=== PATIENT | male | born 1980 | race Caucasian/White ===

== ENCOUNTER 2016-05-24 00:34 | Emergency (ER) | payer BC, OTHER ==
[~2016-05-24] VITALS: Ht 177.8 cm; Wt 142.9 kg
[~2016-05-24 00:34] MED LIST: CIPROFLOXACIN PO; HCTZ PO; TYLENOL # 3 PO
[2016-05-24] MEDS ORDERED: LOSA25TA8 PO (00:43)
[2016-05-24] MEDS ORDERED: ALEV220C2 PO (00:43)
[2016-05-24] MEDS ORDERED: AMLO10TA2 PO (00:43)
--- NOTE | 2016-05-24 04:10 | REPUSA ---
CLINICAL HISTORY: TECHNIQUE: Multiple axial and coronal CT images were obtained through the abdomen and pelvis without administration of oral or IV contrast material. COMMENTS: The liver is of uniform attenuation without mass or defect. There is no intra or extrahepatic biliary ductal dilatation. The spleen is normal. The gallbladder is within normal limits. The pancreas is of normal contour and attenuation characteristics. There is no evidence of adrenal mass. 4.2 mm obstructing stone of the left ureter at L4 level. Mild left hydroureteronephrosis. No renal or right ureteral calculi are identified. There is no right hydroureter or hydronephrosis. There is no evidence for appendicitis. There is no bowel wall thickening. No evidence for small or la rge bowel obstruction. There is no evidence of abdominal ascites or lymphadenopathy. Uncomplicated clonic diverticulosis. Mild large bowel fecal stasis. There is no evidence of intrinsic or extrinsic bladder mass. There is no pelvic ascites or lymphadeno fela. Mildly thickened bladder. Images of the lung bases show no evidence of pleural or parenchymal mass. There are no pleural effusi ons. The bony structures are free of lytic or blastic lesions. IMPRESSION: Obstructing calculus of the left ureter. Thank you for your kind referral of this patient.
[2016-05-24] MEDS ORDERED: PERC5TAB6 PO (04:25)
[2016-05-24] MEDS ORDERED: ZOFR4TAB3 PO (04:25)
[2016-05-24 04:32] VITALS: BP 136/83
== END 2016-05-24 04:48 | disposition home or self-care (01) ==
LOC: M ED 02:16
DX: N20.1 Calculus of ureter (principal)

== ENCOUNTER → 2016-05-29 | Outpatient (REF) | payer OTHER ==
[~2016-05-29] MED LIST changes: +ALEV220C2 PO; +AMLO10TA2 PO; +LOSA25TA8 PO; +PERC5TAB6 PO; +ZOFR4TAB3 PO
== END ==
LOC: M SMT 12:52
PROVIDERS: ATTEND Nurse Practitioner Women's Health
DX: N13.2 Hydronephrosis with renal and ureteral calculous obstruction (principal)

== ENCOUNTER → 2016-06-12 | Outpatient (CLI) | payer BC, OTHER ==
--- NOTE | 2016-06-12 10:01 | REP ---
Supine abdomen two views: Comparison is the CT abdomen pelvis of 05/24. Seen. On the comparison CT there was a calcification in the proximal left ureter. This calcification is not seen in the proximal left ureter on the plain film study today. However, there is a faintly visible density the pelvis on the left which could be the calculus now in the distal left ureter. There are no other calcifications. Bowel gas pattern is normal. Skeletal structures and soft tissues are otherwise are. Signed by Zachary Gilliam MD 06/12/2016 09:52 A
[2016-06-12 14:14] LABS: CALCIUM OXALATE CRYSTALS SMALL
== END ==
LOC: M SMT 09:20
PROVIDERS: ATTEND Nurse Practitioner Women's Health
DX: N13.2 Hydronephrosis with renal and ureteral calculous obstruction (principal)

== ENCOUNTER 2016-09-02 13:54 | Emergency (ER) | payer BC, OTHER ==
[~2016-09-02] VITALS: Ht 177.8 cm; Wt 146.0 kg
[~2016-09-02 13:54] MED LIST changes: +PERC5TAB12 PO; -PERC5TAB6 PO
[2016-09-02] MEDS ORDERED: KETOROLAC 30 MG/ML VIAL (J1885) IV ONE (14:30)
[2016-09-02] MEDS ORDERED: NS 500 ML IV ONE (14:45)
[2016-09-02 15:07] LABS: BASO % 0.3 % (0.0-1.0); EOS # 0.1 K/mm3 (0.0-0.50); EOS % 0.8 % (0.0-3.0); LARGE UNSTAINED CELL # 0.1 K/mm3 (0.0-0.4); LARGE UNSTAINED CELL % 0.7 % (0.0-4.0); LYMPH # 1.3 K/mm3 (1.5-4.5); LYMPH % 10.7 % (24.0-44.0); MEAN CORPUSCULAR HEMOGLOBIN 29.3 pg (27.0-33.0); MEAN CORPUSCULAR HGB CONC 33.7 g/dl (32.0-36.5); MEAN CORPUSCULAR VOLUME 87.1 fl (80.0-96.0); MONO # 0.6 K/mm3 (0.0-0.8); NEUTROPHILS # 9.2 K/mm3 (1.8-7.7); NEUTROPHILS % 82.4 % (36.0-66.0); PLATELET COUNT, AUTOMATED 240 k/mm3 (150-450); RED CELL DISTRIBUTION WIDTH 12.7 % (11.5-14.5); WHITE BLOOD COUNT 11.2 K/mm3 (4.0-10.0)
[2016-09-02 15:13] LABS: CALCIUM OXALATE CRYSTALS LARGE
--- NOTE | 2016-09-02 15:16 | REP ---
Clinical: Left back and flank pain. Comparison: 05/24/2016. Findings: Acute left-sided obstructive uropathy with perinephric and periureteral stranding, hydroureteronephrosis and edematous enlargement to the left kidney secondary to a 5 mm calculus at the left ureterovesicle junction (images 137 - 139). Right kidney/ureter are normal and without nephroureterolithiasis or hydroureteronephrosis. Bladder is collapsed. Liver, spleen, pancreas, gallbladder, and bilateral adrenal glands are normal. The enteric system is without obstruction or acute inflammatory process. Normal terminal ileum and appendix identified in the right lower quadrant. Pelvis demonstrates few scattered sigmoid diverticula without acute diverticulitis. Bladder is unremarkable. Prostate/seminal vesicles are normal. No ascites. No free air. No adenopathy. Abdominal aorta without aneurysm. Musculoskeletal structures are intact. Impression: Acute left-sided obstructive uropathy with a 5 mm calculus at the ureterovesicle junction. Signed by Ken Andrade MD 09/02/2016 03:07 P
[2016-09-02 15:28] LABS: ANION GAP 6 MEQ/L (8-16); BLOOD UREA NITROGEN 22 MG/DL (7-18); CALCIUM LEVEL 8.6 MG/DL (8.5-10.1); CARBON DIOXIDE LEVEL 26 MEQ/L (21-32); CHLORIDE LEVEL 106 MEQ/L (98-107); CREATININE FOR GFR 1.09 MG/DL (0.70-1.30); GLOMERULAR FILTRATION RATE > 60.0 (>60); GLUCOSE, FASTING 98 MG/DL (70-105); SODIUM LEVEL 138 MEQ/L (136-145)
[2016-09-02] MEDS ORDERED: MORPHINE 4 MG/ML 1ML SYRINGE IV ONE (15:45)
[2016-09-02] MEDS ORDERED: FLOM5CAP PO (15:53)
[2016-09-02] MEDS ORDERED: NORCOTAB PO (15:53)
[2016-09-02] MEDS ORDERED: NAPR500T PO (15:53)
[2016-09-02 16:31] VITALS: BP 157/89
== END 2016-09-02 16:37 | disposition home or self-care (01) ==
LOC: M ED 13:54
DX: N20.1 Calculus of ureter (principal); N13.30 Unspecified hydronephrosis; I10 Essential (primary) hypertension; Z87.442 Personal history of urinary calculi; Z88.0 Allergy status to penicillin; Z79.899 Other long term (current) drug therapy
CPT/HCPCS: 74176; 80048; 81001; 85025; 86140; 87086; 96374; 96375; 99283; J1885

== ENCOUNTER → 2016-09-04 | Outpatient (REF) | payer OTHER ==
[~2016-09-04] MED LIST changes: +FLOM5CAP PO; +NAPR500T PO; +NORCOTAB PO
== END ==
LOC: M LAB REF 10:56
PROVIDERS: ATTEND Physician Assistant
DX: N20.0 Calculus of kidney (principal)

== ENCOUNTER → 2016-09-10 | Outpatient (REF) | payer OTHER | LOC: M SMT 12:46 | PROVIDERS: ATTEND Nurse Practitioner Women's Health | DX: N13.2 Hydronephrosis with renal and ureteral calculous obstruction (principal) ==

== ENCOUNTER 2017-12-17 03:25 | Emergency (ER) | payer BC, OTHER | END 2017-12-17 04:33 | disposition home or self-care (01) | LOC: M ED 03:25 | DX: L70.0 Acne vulgaris (principal); Z88.0 Allergy status to penicillin; Z79.899 Other long term (current) drug therapy | CPT/HCPCS: 99282 ==

== ENCOUNTER → 2018-08-03 | Outpatient (REF) | payer OTHER ==
[~2018-08-03] MED LIST changes: -AMLO10TA2 PO; +AMLO10TA5 PO; +FLOM0.4C39 PO; -FLOM5CAP PO; +HYDR-3715 PO; +LOSA25TA14 PO; -LOSA25TA8 PO; +LOSARTAN/HCT; +NAPR-837 PO; -NAPR500T PO; -NORCOTAB PO; +ZOFR4TAB14 PO; -ZOFR4TAB3 PO
== END ==
LOC: M WUC 12:18
PROVIDERS: ATTEND Physician Assistant
DX: J02.9 Acute pharyngitis, unspecified (principal)

== ENCOUNTER 2020-09-08 19:55 | Emergency (ER) | payer BC, OTHER ==
[~2020-09-08] VITALS: Ht 177.8 cm; Wt 157.8 kg
[~2020-09-08 19:55] MED LIST changes: -AMLO10TA5 PO; +AMLO1TAB25 PO
[2020-09-08] MEDS ORDERED: LOSA100T50 PO (20:02)
[2020-09-08] MEDS ORDERED: EXCETAB33 PO (20:02)
[2020-09-09 01:25] LABS: BASO # 0.1 10^3/uL (0.0-0.2); BASO % 0.8 % (0.0-1.0); EOS # 0.2 10^3/uL (0.0-0.5); EOS % 2.4 % (0.0-3.0); HEMATOCRIT 42.5 % (42.0-52.0); LYMPH # 3.1 10^3/uL (1.5-5.0); LYMPH % 33.2 % (24.0-44.0); MEAN CORPUSCULAR HEMOGLOBIN 28.7 pg (27.0-33.0); MEAN CORPUSCULAR HGB CONC 32.9 g/dl (32.0-36.5); MEAN CORPUSCULAR VOLUME 87.3 fl (80.0-96.0); MONO # 0.6 10^3/uL (0.0-0.8); MONO % 6.5 % (2.0-8.0); NEUTROPHILS # 5.2 10^3/uL (1.5-8.5); NEUTROPHILS % 56.6 % (36.0-66.0); PLATELET COUNT, AUTOMATED 300 10^3/uL (150-450); RED BLOOD COUNT 4.87 10^6/uL (4.30-6.10); WHITE BLOOD COUNT 9.2 10^3/uL (4.0-10.0)
--- NOTE | 2020-09-09 01:25 | REPVR ---
PROCEDURE INFORMATION: Exam: US Abdomen, Limited; Right Upper Quadrant Exam date and time: 09/09/2020 1:02 AM Age: 40 years old Clinical indication: Abdominal pain; Acute; Additional info: Ruq pain TECHNIQUE: Imaging protocol: US abdomen. Real time ultrasound with image documentation. Limited exam focused on the right upper quadrant. COMPARISON: CT ABD PELVIS W/O CONTRAST 09/02/2016 2:51 PM FINDINGS: Liver: Unremarkable. No masses. Gallbladder: Normal. No gallstones. There is no gallbladder wall thickening. Common bile duct: Normal. No stones. No dilation. Pancreas: Visualized pancreas is unremarkable. Right kidney: Normal. No mass. No hydronephrosis. IMPRESSION: No acute findings. Electronically signed by: Rahat Malik On 09/09/2020 01:24:32 AM
[2020-09-09 01:54] LABS: ALBUMIN 3.9 GM/DL (3.2-5.2); ALT/SGPT 41 U/L (12-78); BILIRUBIN,DIRECT 0.1 MG/DL (0.0-0.2); BILIRUBIN,TOTAL 0.4 MG/DL (0.2-1.0); BLOOD UREA NITROGEN 14 MG/DL (7-18); CALCIUM LEVEL 8.7 MG/DL (8.5-10.1); CARBON DIOXIDE LEVEL 30 MEQ/L (21-32); CHLORIDE LEVEL 107 MEQ/L (98-107); GLOMERULAR FILTRATION RATE > 60.0 (>60); GLUCOSE, FASTING 103 MG/DL (70-100); LIPASE 119 U/L (73-393); POTASSIUM SERUM 4.1 MEQ/L (3.5-5.1); SODIUM LEVEL 140 MEQ/L (136-145); TOTAL PROTEIN 6.9 GM/DL (6.4-8.2)
[2020-09-09 02:41] VITALS: BP 154/87
== END 2020-09-09 02:43 | disposition home or self-care (01) ==
LOC: M ED 19:55
DX: R10.11 Right upper quadrant pain (principal); E66.9 Obesity, unspecified; R06.02 Shortness of breath; I10 Essential (primary) hypertension; M54.9 Dorsalgia, unspecified; Z87.442 Personal history of urinary calculi; Z79.899 Other long term (current) drug therapy; Z88.0 Allergy status to penicillin

== ENCOUNTER 2020-11-15 14:05 | Emergency (ER) | payer BC, OTHER ==
[~2020-11-15] VITALS: Ht 177.8 cm; Wt 156.0 kg
[~2020-11-15 14:05] MED LIST changes: +EXCETAB33 PO; +LOSA100T50 PO
[2020-11-15] MEDS ORDERED: NAPR220C14 PO (14:16)
[2020-11-15] MEDS ORDERED: LOSA100T8 (14:16)
[2020-11-15 14:56] LABS: BASO # 0.1 10^3/uL (0.0-0.2); BASO % 0.8 % (0.0-1.0); EOS # 0.2 10^3/uL (0.0-0.5); EOS % 2.3 % (0.0-3.0); HEMATOCRIT 40.7 % (42.0-52.0); HEMOGLOBIN 13.8 g/dl (13.5-17.5); LYMPH # 1.8 10^3/uL (1.5-5.0); LYMPH % 23.9 % (24.0-44.0); MEAN CORPUSCULAR HEMOGLOBIN 29.1 pg (27.0-33.0); MEAN CORPUSCULAR HGB CONC 33.9 g/dl (32.0-36.5); MEAN CORPUSCULAR VOLUME 85.9 fl (80.0-96.0); MONO # 0.4 10^3/uL (0.0-0.8); MONO % 5.2 % (2.0-8.0); NEUTROPHILS # 5.1 10^3/uL (1.5-8.5); NEUTROPHILS % 67.3 % (36.0-66.0); PLATELET COUNT, AUTOMATED 289 10^3/uL (150-450); RED BLOOD COUNT 4.74 10^6/uL (4.30-6.10); WHITE BLOOD COUNT 7.5 10^3/uL (4.0-10.0)
--- NOTE | 2020-11-15 15:12 | REP ---
INDICATION: CHEST PAIN. COMPARISON: July 03, 2013. TECHNIQUE: Portable upright AP chest radiograph. FINDINGS: The lungs are well inflated and free of infiltrate. Pleural angles are sharp. Heart size is normal. Pulmonary vasculature is not increased. EKG monitoring electrodes are present. IMPRESSION: No active disease. <Electronically signed by Dmitri Malave > 11/15/20 [id number]
[2020-11-15 15:29] LABS: ALBUMIN 3.5 GM/DL (3.2-5.2); ALT/SGPT 41 U/L (12-78); BILIRUBIN,DIRECT 0.1 MG/DL (0.0-0.2); BILIRUBIN,TOTAL 0.3 MG/DL (0.2-1.0); BLOOD UREA NITROGEN 16 MG/DL (7-18); CARBON DIOXIDE LEVEL 27 MEQ/L (21-32); CHLORIDE LEVEL 107 MEQ/L (98-107); CK-MB VALUE MASS < 1.0 NG/ML (<3.6); CPK CREATINE PHOSPHOKINASE 117 U/L (39-308); CREATININE FOR GFR 0.69 MG/DL (0.70-1.30); FREE T4 0.91 NG/DL (0.76-1.46); GLOMERULAR FILTRATION RATE > 60.0 (>60); GLUCOSE, FASTING 91 MG/DL (70-100); LIPASE 108 U/L (73-393); MB/CK RELATIVE INDEX 0.85 (< OR =4); NT-PRO BNP 20 PG/ML (<125); POTASSIUM SERUM 4.4 MEQ/L (3.5-5.1); SODIUM LEVEL 138 MEQ/L (136-145); TOTAL PROTEIN 6.5 GM/DL (6.4-8.2); TROPONIN I < 0.02 NG/ML (< 0.10)
[2020-11-15 17:30] VITALS: BP 158/88
--- NOTE | 2020-11-17 19:47 | ECGEPIP ---
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
== END 2020-11-15 17:36 | disposition home or self-care (01) ==
LOC: M ED 14:05
DX: R07.89 Other chest pain (principal); I10 Essential (primary) hypertension; Z87.442 Personal history of urinary calculi; Z88.0 Allergy status to penicillin; Z79.82 Long term (current) use of aspirin; Z79.899 Other long term (current) drug therapy

== ENCOUNTER → 2020-11-28 | Outpatient (CLI) | payer BC, OTHER ==
[~2020-11-28] MED LIST changes: +LOSA100T8; +NAPR220C14 PO
--- NOTE | 2020-12-02 16:31 | SLEEPCENT ---
DATE: 11/28/2020 PROCEDURE: Nocturnal polysomnography. ORDERED BY: Tiffanie Addison. Nocturnal polysomnography was performed for evaluation of sleep physiology in this patient with a history of snoring and excessive somnolence. 6 hours and 32 minutes of data were reviewed. There were 257 minutes of sleep identified. Sleep latency was prolonged at 74 minutes. REM latency was normal at 80 minutes. Sleep architecture was fairly well preserved. There was some fragmentation, but 3 REM cycles were noted. Overall sleep efficiency was 67.1%. The electrocardiogram showed a sinus rhythm with an average heart rate of 65 beats per minute. Rate varied between 55 and 85. EEG showed normal waveforms for wake and sleep. There were 237 respiratory events identified of 10 seconds in duration or greater for an apnea-hypopnea index of 55.3. The events were obstructive, not exclusive to sleep stage nor body position. Arousals from respiratory events occurred 16.3 times per hour, and oxygen desaturations were seen into the 70s. There was some limb activity, but arousal index was only 2.3. IMPRESSION: Obstructive sleep apnea syndrome (G47.33). Apnea-hypopnea index 55.3. RECOMMENDATION: The patient should be encouraged to return to [facility]. In the interim, alcohol and sedative avoidance should be practiced, and caution exercised during the operation of motor vehicles. cc: Dr. Patino
== END ==
LOC: M SLEEP 20:00
PROVIDERS: ATTEND Nurse Practitioner Family
DX: G47.33 Obstructive sleep apnea (adult) (pediatric) (principal)

== ENCOUNTER → 2020-12-26 | Outpatient (CLI) | payer BC, OTHER ==
--- NOTE | 2020-12-30 20:10 | SLEEPCENT ---
DATE: 12/26/2020 CPAP TITRATION ORDERED BY: CHANTELL Betancur Nocturnal polysomnography was performed for the titration of pressure therapy in this patient with severe obstructive sleep apnea syndrome, apnea-hypopnea index of 8. For testing a ResMed F20 full face mask of medium size was used, 4 cm of water pressure were applied to the circuit, and the lights were extinguished. Seven hours and 18 minutes of data were reviewed. There were 266.5 minutes of sleep identified. Sleep latency was normal at 7.5 minutes. REM latency was normal at 79 minutes. Sleep architecture was good with three REM cycles. Overall sleep efficiency was 62.0%. The patient's electrocardiogram showed a sinus rhythm with an average heart rate of 65 beats per minute. EEG showed normal waveforms for wake and sleep. Respiratory events were palliated with CPAP at a pressure of 9. There was some minor limb activity. Limb movement arousal index on this occasion was 9. IMPRESSIONS: Obstructive sleep apnea syndrome (G47.33). RECOMMENDATION: Nightly use of pressure therapy 9 cm of water. cc: Dr. Patino
== END ==
LOC: M SLEEP 20:02
PROVIDERS: ATTEND Nurse Practitioner Family
DX: G47.33 Obstructive sleep apnea (adult) (pediatric) (principal)

== ENCOUNTER 2021-02-07 01:36 | Emergency (ER) | payer BC, OTHER ==
[~2021-02-07] VITALS: Ht 177.8 cm; Wt 160.3 kg
[2021-02-07 01:38] VITALS: BP 141/77
--- OUTSIDE RECORDS SUMMARY | 2021-02-07 01:45 | CCD | Continuity of Care Document ---
Author Author Jake COLLIER MD Organization Unknown Address [address] [place] [address] [place] [address] Phone [phone] Care Team Providers Care Polygraph Examiner Name Role Phone French Patino MD AUT [phone] Problems Active Problems Provider Date Dietary management surveillance Miky Collier MD Onset: 01/08/2021 Morbid obesity Miky Collier MD Onset: 01/08/2021 Essential hypertension Miky Collier MD Onset: Chest pain Miky Collier MD Onset: 01/08/2021 Social History Type Date Description Comments Sex Unknown ETOH Use Consumes Beer 6-7 monthly ETOH Use Consumes Liquor 1-2 shots monthl y Tobacco Use Start: Unknown Patient has never smoked Smoking Status Reviewed: 01/08/21 Patient has never smoked Exercise Type/Frequency Does aerobics 4 times a week Exercise Type/Frequency Lifts weights 4 times a week Exercise Type/Frequency Does housework sporadica lly Exercise Limitations None Allergies and adverse reactions Active Allergies Criticality Reaction | Severity Comments Date Penicillin V Unable to assess criticality 11/27/2020 Medications Active Medications SIG Qnty Indications Ordering Provide r Date Amlodipine Besylate 10mg Tablets 1 by mouth once daily French Patino MD [id number]-[id number]-Dzbhyntr [id number] Tablets 1-2 by mouth as needed 10tabs Unknown 01/07 Losartan Potassium/Hydrochlorothiazide 100-12.5mg Tablets 1 by mouth once daily French Patino MD 01/07/2021 Vitamin C 500mg Tablets 1 by mouth occasionally Unknown 01/07/2021 Immunizations Description No Information Available Vital Signs Date Vital Result Comment 01/08/2021 8:25am Weight 348.00 lb Home Weight 344lb Height 70 inches 5'10" BMI (Body Mass Index) 49.9 kg/m2 Heart Rate 77 /min BP Systolic Sitting 113 mmHg Omron XL cuff, Ra BP Diastolic Sitting 83 mmHg Omron XL cuff, Ra Results Test Acquired Date Facility Test Result H/L Range Note CMP 11/15/2020 [facility] - not interfaced (315)- - Albumin Serum/Plasma 3.5 Alt - SGPT 41 Calcium Ser/Plasma Mass/Vol 9.0 Carbon Dioxide Ser/Plasm 27 Chloride Serum/Plasma 107 Alkaline Phosphatase 102 Potassium 4.4 Protein Total 6.5 Sodium 138 Ast - Sgot 20 BUN - Urea Nitrogen 16 Glucose 91 70-100 Creatinine For GFR 0.69 CPK & CPK MB 11/15/2020 [facility] - not interfaced (315)- - CPK 117 CPK-MB <1.0 Laboratory test finding 11/15/2020 [facility] - not interf aced (315)- - Troponin <0.02 NT Probnp QN Ser/Plas 20 Thyroid Stimulating Hormone 1.360 Free T4 0.91 Lipase 108 CBC without Differential 11/15/2020 [facility] - not inter faced (315)- - White Blood Count 7.5 4.0-10.0 Red Blood Count 4.74 4.30-6.10 Platelets 289 150-450 Hemoglobin 13.8 Hematocrit 40.7 Procedures Date Code Description Status 01/08/2021 58266 Office/Outpatient New Moderate M DM 45-59 Minutes Completed 01/08/2021 63514 ECG 12-Lead Completed Medical Devices Description No Information Available Encounters Type Date Location Provider Dx Diagnosis Office Visit 01/08/2021 8:00a Main Office Miky Collier MD R07.8 9 Other chest pain I10 Essential (primary) hyperten yuly E66.01 Morbid (severe) obesity due to excess calories Z71.3 Dietary counseling and surve illance Assessments Date Code Description Provider 01/08/2021 R07.89 Anterior chest-wall pain NOS Ant hannah Collier MD 01/08/2021 I10 Essential (primary) hypertension Miky Collier MD 01/08/2021 E66.01 Morbid (severe) obesity due to e xcess calories Miky Collier MD 01/08/2021 Z71.3 Dietary counseling and surveilla nce Miky Collier MD Plan of Treatment 01/08/2021 - Miky Collier MD* R07.89 Anterior chest-wall pain NOS* Recommendations:* Cardiac stress testing was not pursued because the patient's pretest likelihood for CAD based on symptom description, age, gender is low. Patient was reassured that the sharp chest pains he had were not cardiac. * I10 Essential (primary) hypertension* Recommendations:* Continue losartan/hydrochlorothiazide and amlodipine at the current dosages. Low-fat, whole-food, plant-based, low sodium nutrition with avoidance of added oils and fats and avoidance of refined carbohydrates was encouraged. No alcohol. [place] or equivalent aerobic activity for 40-60 minutes every day. * E66.01 Morbid (severe) obesity due to excess calories* Recommendations:* Nutrition and exercise advice as above. * Z71.3 Dietary counseling and surveillance * All * Follow up:* No specific arrangements were made for further cardiology follow-up. Functional Status Functional Condition Comment Date Status Independent with all ADL's Activ e Mental Status Description No Information Available Referrals Description No Information Available
--- OUTSIDE RECORDS SUMMARY | 2021-02-07 01:45 | CCD | Continuity of Care Document ---
Author Author Jake MCGREGOR [place] Organization Unknown Address [address] [place] [address] [place] [address] Phone [phone] Care Team Providers Care Maintenance Dispatcher Name Role Phone French Patino MD AUTM [phone] Problems Description No Information Available Social History Type Date Description Comments Sex Unknown ETOH Use Rarely consumes alcohol Tobacco Use Start: Unknown Patient has never smoked Tobacco Use Start: Unknown The Patient Has Never Vaped Smoking Status Reviewed: 12/26/19 The Patient Has Never Vaped Allergies and adverse reactions Active Allergies Criticality Reaction | Severity Comments Date Penicillins Unable to assess criticality 07/03/2013 Medications Active Medications SIG Qnty Indications Ordering Provide r Date Losartan Potassium Unknown Amlodipine Besylate Unknown Nyquil last dose last night around midnight Unknown Aleve 220mg Capsules yesterda y Unknown Immunizations CPT Code Status Date Vaccine Reaction Lot # [id number] Given 10/06/2019 Tdap/Tetanus, Di phth Toxoids/Acellular Pertussis Vac 7Yr Or > No reaction [id number] Vital Signs Date Vital Result Comment 12/26/2019 6:41pm BP Systolic 146 mmHg BP Diastolic 89 mmHg Heart Rate 89 /min Respiratory Rate 18 /min O2 % BldC Oximetry 97 % Body Temperature 100.3 F Weight 340.00 lb Height 70 inches 5'10" BMI (Body Mass Index) 48.8 kg/m2 Pain Level 1 10/06/2019 8:21am BP Systolic 147 mmHg BP Diastolic 89 mmHg Heart Rate 68 /min Respiratory Rate 16 /min O2 % BldC Oximetry 98 % Body Temperature 97.7 F Weight 330.00 lb Height 70 inches 5'10" BMI (Body Mass Index) 47.3 kg/m2 Pain Level 1 Results Description No Information Available Procedures Description No Information Available Medical Devices Description No Information Available Encounters Description No Information Available Assessments Date Code Description Provider 01/13/2021 Z20.828 Contact with and (zheng spected) exposure to other viral communicable diseases YANG Pastrana 12/09/2020 Z20.828 Contact with and (zheng spected) exposure to other viral communicable diseases YANG Pastrana 08/02/2020 Z20.828 Contact with and (zheng spected) exposure to other viral communicable diseases YANG Damian Plan of Treatment No Information Available Functional Status Description No Information Available Mental Status Description No Information Available Referrals Description No Information Available
--- OUTSIDE RECORDS SUMMARY | 2021-02-07 01:45 | CCD | Continuity of Care Document ---
Author Author Jake PATINO M.D. Organization Unknown Address [address] [address] Phone [phone] Problems Active Problems Provider Date Benign essential hypertension French Patino M.D. Onset: 05/03/2013 Essential hypertension French Patino M.D. Onset: 2014 Hyperglycemia French Patino M.D. Onset: 0 Social History Type Date Description Comments Sex Unknown ETOH Use Drinks Beer,Wine and Liquor-14 D rinks per week Tobacco Use Start: Unknown Patient has never smoked Allergies and adverse reactions Active Allergies Criticality Reaction | Severity Comments Date Penicillin Unable to assess criticality hives 05/03/2013 Hydrochlorothiazide Unable to assess criticality Cough 07/28/2019 Medications Active Medications SIG Qnty Indications Ordering Provide r Date Losartan Potassium/Hydrochlorothiazide 100-12.5mg Tablets 1 by mouth every day 90tabs French Patino M.D. 09/17/2020 Amlodipine Besylate 10mg Tablets take 1 tablet by mouth once daily 90tabs French Patino M. D. 06/11/2015 Immunizations CPT Code Status Date Vaccine Lot # [id number] Refused 01/25/2019 Influenza Virus Vaccine, Quadrivalent, Slit Virus, Im Use 3Y & Up Vital Signs Date Vital Result Comment 01/07/2021 1:35pm BP Systolic 134 mmHg BP Diastolic 84 mmHg Body Temperature 98.4 F Heart Rate 86 /min Respiratory Rate 14 /min Height 70 inches 5'10" Weight 348.00 lb [place] Body Weight 166 lb BMI (Body Mass Index) 49.9 kg/m2 O2 % BldC Oximetry 97 % 09/17/2020 1:20pm BP Systolic 154 mmHg BP Diastolic 94 mmHg Body Temperature 97.1 F Heart Rate 76 /min Respiratory Rate 16 /min Height 70 inches 5'10" Weight 242.00 lb [place] Body Weight 166 lb BMI (Body Mass Index) 34.7 kg/m2 O2 % BldC Oximetry 98 % Results Test Acquired Date Facility Test Result H/L Range Note Laboratory test finding 01/07/2021 [facility] [place] Amylase 50 U/L 31-110 Lipase 32 U/L 13-78 CMP 01/07/2021 [facility]Inhouse Glu 88 mg/dL 70 - 110 1 BUN 15 mg/dL 8 - 23 Creat 0.8 mg/dL 0.7 - 1.2 BUN/Creatinine Ratio 19.7 CALC Na 136 mmol/L 136 - 145 K 4.2 mmol/L 3.5 - 5.1 CL 101.7 mmol/L 98.0 - 107.0 Co2 22.2 mmol/L 22.0 - 29.0 CA 9.1 mg/dL 8.6 - 10.2 TP 6.2 g/dL Low 6.6 - 8.7 Alb 4.3 g/dL 3.5 - 5.2 A/G Ratio 2.2 CALC Globulin 2.0 CALC Alp 106.7 U/L 40 - 129 Alt (SGPT) 28 U/L 0 - 41 Ast (Sgot) 21 U/L 0 - 40 Tbili 0.30 mg/dL 0.0 - 1.2 Osmolality-Calculated 273.1 CALC Anion Gap 17 mmol/L eGFR 128 # Calc 2 eGFR Non-Afr. Australian 110 # Calc 3 CBC 01/07/2021 [facility]Inhouse WBC 6.9 10E3/uL 4.1 - 10.9 RBC 4.90 10E6/uL 4.20 - 6.30 HGB 14.2 g/dL 12.0 - 18.0 HCT 41.9 % 37.0 - 51.0 MCV 85.5 fL 80.0 - 97.0 MCH 29.0 pg 26.0 - 32.0 MCHC 33.9 g/dL 31.0 - 36.0 PLT 296 10E3/uL 140 - 440 RDW-CV 12.6 % 11.5 - 14.5 Lym% 26.2 % 10.0 - 58.5 Neut% 65.1 % 37.0 - 92.0 MXD% 8.7 % 0.1 - 24.0 Lym# 1.8 10E3/uL 0.6 - 4.1 Neut# 4.5 % 2.0 - 7.8 MXD# 0.6 10E3/uL 0.0 - 1.8 MPV 11.4 fL 9.0 - 13.0 CBC With Differential 11/15/2020 [facility]) [phone] White Blood Count 7.5 10 Normal 4.0-10.0 Red Blood Count 4.74 10 Normal 4.30-6.10 Hemoglobin 13.8 g/dL Normal 13.5-17.5 Hematocrit 40.7 % Low 42.0-52.0 Mean Corpuscular Volume 85.9 fl Normal 80.0-96.0 Mean Corpuscular Hemoglobin 29.1 pg Normal 27.0-33.0 Mean Corpuscular HGB Conc 33.9 g/dL Normal 32.0-36.5 Red Cell Distribution Width 12.1 % Normal 11.5-14.5 Platelet Count, Automated 289 10 Normal 150-450 Neutrophils % 67.3 % High 36.0-66.0 Lymph % 23.9 % Low 24.0-44.0 [place] % 5.2 % Normal 2.0-8.0 Eos % 2.3 % Normal 0.0-3.0 Baso % 0.8 % Normal 0.0-1.0 Immature Granulocyte % 0.5 % Normal 0-3.0 Nucleated Red Blood Cell % 0.0 % Normal 0-0 Neutrophils # 5.1 10 Normal 1.5-8.5 Lymph # 1.8 10 Normal 1.5-5.0 [place] # 0.4 10 Normal 0.0-0.8 Eos # 0.2 10 Normal 0.0-0.5 Baso # 0.1 10 Normal 0.0-0.2 Cardiac Marker Panel 11/15/2020 [facility]) [phone] CPK Creatine Phosphokinase 117 U/L Normal 39-30 8 CK-MB Value Mass < 1.0 NG/ML Normal <3.6 MB/CK Relative Index 0.85 Normal < Or =4 4 Troponin I < 0.02 NG/ML Normal < 0.10 5 Liver Profile 11/15/2020 [facility] [phone] Ast/Sgot 20 U/L Normal 7-37 Alt/SGPT 41 U/L Normal 12-78 Alkaline Phosphatase 102 U/L Normal 45-117 Bilirubin,Total 0.3 mg/dL Normal 0.2-1.0 Bilirubin,Direct 0.1 mg/dL Normal 0.0-0.2 Total Protein 6.5 GM/DL Normal 6.4-8.2 Albumin 3.5 GM/DL Normal 3.2-5.2 Albumin/Globulin Ratio 1.2 Normal Basic Metabolic Profile 11/15/2020 [facility] (Interface) [phone] Glucose, Fasting 91 mg/dL Normal 70-100 Blood Urea Nitrogen 16 mg/dL Normal 7-18 Creatinine For GFR 0.69 mg/dL Low 0.70-1.30 Glomerular Filtration Rate > 60.0 Normal >60 6 Sodium Level 138 mEq/L Normal 136-145 Potassium Serum 4.4 mEq/L Normal 3.5-5.1 Chloride Level 107 mEq/L Normal 98-107 Carbon Dioxide Level 27 mEq/L Normal 21-32 Anion Gap 4 mEq/L Low 8-16 Calcium Level 9.0 mg/dL Normal 8.5-10.1 Laboratory test finding 11/15/2020 [facility] (Interface) [phone] NT-Pro BNP 20 pg/mL Normal <125 Lipase 108 U/L Normal 73-393 Thyroid Stimulating Hormone 1.360 uIU/ML Normal 0.358-3.740 Free T4 0.91 ng/dL Normal 0.76-1.46 Ua W/ Reflex To Culture 09/09/2020 [facility] (Interface) [phone] Appearance, Urine RFX HAZY Normal Clear Color, Urine RFX YELLOW Normal Yellow PH,Urine RFX 5.0 units Normal 5.0-9.0 Specific [place] Ur Auto RFX 1.024 Normal 1.002-1.035 Protein, Urine Auto RFX 1+ mg/dL High Negative Glucose, Urine (Ua) Auto RFX NEGATIVE mg/dL Normal Negative Ketone, Urine Auto RFX NEGATIVE mg/dL Normal Negative Urobilinogen, Urine Auto RFX 0.2 mg/dL Normal 0.0-2.0 Bilirubin, Urine Auto RFX NEGATIVE Normal Negative Nitrite, Urine Auto RFX NEGATIVE Normal Negative Leukocyte Esterase Ur Auto RFX NEGATIVE Normal Negative Blood, Urine Blood RFX NEGATIVE Normal Negative WBC, Urine Auto RFX 2 /HPF Normal 0-3 RBC, Urine Auto RFX 2 /HPF Normal 0-3 Bacteria, Urine Auto RFX NEGATIVE Normal Negative Squam Epithelial Cell Ur Aurfx 0 /HPF Normal 0-6 Mucus, Urine RFX MODERATE Normal Negative Hyaline Cast, Urine Auto RFX 0 /LPF Normal 0-1 CBC With Differential 09/09/2020 [facility]) [phone] White Blood Count 9.2 10 Normal 4.0-10.0 Red Blood Count 4.87 10 Normal 4.30-6.10 Hemoglobin 14.0 g/dL Normal 13.5-17.5 Hematocrit 42.5 % Normal 42.0-52.0 Mean Corpuscular Volume 87.3 fl Normal 80.0-96.0 Mean Corpuscular Hemoglobin 28.7 pg Normal 27.0-33.0 Mean Corpuscular HGB Conc 32.9 g/dL Normal 32.0-36.5 Red Cell Distribution Width 12.7 % Normal 11.5-14.5 Platelet Count, Automated 300 10 Normal 150-450 Neutrophils % 56.6 % Normal 36.0-66.0 Lymph % 33.2 % Normal 24.0-44.0 [place] % 6.5 % Normal 2.0-8.0 Eos % 2.4 % Normal 0.0-3.0 Baso % 0.8 % Normal 0.0-1.0 Immature Granulocyte % 0.5 % Normal 0-3.0 Nucleated Red Blood Cell % 0.0 % Normal 0-0 Neutrophils # 5.2 10 Normal 1.5-8.5 Lymph # 3.1 10 Normal 1.5-5.0 [place] # 0.6 10 Normal 0.0-0.8 Eos # 0.2 10 Normal 0.0-0.5 Baso # 0.1 10 Normal 0.0-0.2 Liver Profile 09/09/2020 [facility] (I [facility]) [phone] Ast/Sgot 21 U/L Normal 7-37 Alt/SGPT 41 U/L Normal 12-78 Alkaline Phosphatase 107 U/L Normal 45-117 Bilirubin,Total 0.4 mg/dL Normal 0.2-1.0 Bilirubin,Direct 0.1 mg/dL Normal 0.0-0.2 Total Protein 6.9 GM/DL Normal 6.4-8.2 Albumin 3.9 GM/DL Normal 3.2-5.2 Albumin/Globulin Ratio 1.3 Normal Basic Metabolic Profile 09/09/2020 [facility] (Interface) [phone] Glucose, Fasting 103 mg/dL High 70-100 Blood Urea Nitrogen 14 mg/dL Normal 7-18 Creatinine For GFR 0.80 mg/dL Normal 0.70-1.30 Glomerular Filtration Rate > 60.0 Normal >60 7 Sodium Level 140 mEq/L Normal 136-145 Potassium Serum 4.1 mEq/L Normal 3.5-5.1 Chloride Level 107 mEq/L Normal 98-107 Carbon Dioxide Level 30 mEq/L Normal 21-32 Anion Gap 3 mEq/L Low 8-16 Calcium Level 8.7 mg/dL Normal 8.5-10.1 Laboratory test finding 09/09/2020 [facility] (Interface) [phone] Lipase 119 U/L Normal 73-393 CMP 08/06/2020 [facility] Glu 104 mg/dL 70 - 110 8 BUN 14 mg/dL 8 - 23 Creat 0.7 mg/dL 0.7 - 1.2 BUN/Creatinine Ratio 18.8 Calc Na 137 mmol/L 136 - 145 K 4.4 mmol/L 3.5 - 5.1 CL 101.2 mmol/L 98.0 - 107.0 Co2 24.4 mmol/L 22.0 - 29.0 CA 9.1 mg/dL 8.6 - 10.2 TP 6.3 g/dL Low 6.6 - 8.7 Alb 4.2 g/dL 3.5 - 5.2 A/G Ratio 2.0 Calc Globulin 2.1 Calc Alp 107.0 U/L 40 - 129 Alt (SGPT) 39 U/L 0 - 41 Ast (Sgot) 23 U/L 0 - 40 Tbili 0.30 mg/dL 0.0 - 1.2 Osmolality-Calculated 275.1 Calc Anion Gap 16 mmol/L eGFR 135 # Calc 9 eGFR Non-Afr. Australian 116 # Calc 10 Lipid Panel 08/06/2020 [facility] Chol 177 mg/dL 0 - 200 Trig 147 mg/dL 35 - 200 HDL 48 mg/dL 35 - 55 LDL_C 99 Calc 75 - 129 Cho/HDL Ratio 3.7 CALC Laboratory test finding 08/06/2020 [facility] TSH 2.535 ulU/mL 0.60 - 4.8 1 NORMAL RANGES Age WBC RBC HGB HCT MCV PLT Adult M 4.1-10.9 4.20-6.30 12.0-18.0 37.0-51.0 80-97 140-440 Adult F 4.1-10.9 4.04-5.48 12.0-18.0 37.0-51.0 80-97 140-440 0 -1 Yr 5.0-20.0 3.9-5.9 15-18 MV: 44 MV: 91 MV: 277 2-9 Yr. 6.0-17.0 3.8-5.4 11-13 MV: 37 MV: 78 MV: 300 10 Yrs. 5.0-13.0 3.8-5.4 12-15 MV: 39 MV: 80 MV: 250 NOTE: * FOR ADULT BLACK MALES AND FEMALES, NORMAL WBC IS 2.9-7.7 K/ML * FOR ADULT BLACK MALES AND FEMALES, NORMAL RBC,HGB, AND HCT IS 5% LESS SOURCE FOR DATA: [employer] 1800 OPERATION MANUAL( AUTOMATED BLOOD COUNTS AND DIFF.) APPENDIX B-3 CHRONIC KIDNEY DISEASE STAGING PER NKF: MALE GFR INTERPRETATION: 20-49 YRS: >60 mL/min Normal 50-59 YRS: >56 mL/min Normal 60-69 YRS: >49 mL/min Normal 70-79 YRS: >42 mL/min Normal 80 and above >35 mL/min Normal FEMALE GRF INTERPRETATION: 20-39 YRS: >60 mL/min Normal 40-49 YRS: >58 mL/min Normal 50-59 YRS: >51 mL/min Normal 60-69 YRS: >45 mL/min Normal 70-79 YRS: >39 mL/min Normal 80 and above >32 mL/min Normal 2 CKD-EPI 3 CKD-EPI 4 DIAGNOSIS CRITERIA MMB ng/ml Relative Index (RI) NON-AMI < or = 5 N/A VILLATORO ZONE > 5 < or = 4 AMI > 5 > 4 5 Troponin I Reference Interva l for [place] LOCI: 99th Percentile= 0.00-0.045 ng/ml Risk Stratification: <= 0.10 ng/ml Decreased Risk for Adverse Clinical Events. 0.10-1.50 ng/ml Increased Risk for Adv erse Clinical Events. Evaluation of additional criterion and/or repeat testing in 2-6 hours is suggested to rule out myocardial damage. >= 1.50 ng/ml Indicative of Myocardial Injury. 6 Units are mL/min/1.73 m2 Chronic Kidney Disease Staging per NKF: Stage I & II GFR >=60 Normal to Mildly Decreased Stage III GFR 30-59 Moderately Decreased Stage IV GFR 15-29 Severely Decreased Stage V GFR <15 Very Little GFR Left ESRD GFR <15 on [employer]HA[employer] WORK[employer] 7 Units are mL/min/1.73 m2 Chronic Kidney Disease Staging per NKF: Stage I & II GFR >=60 Normal to Mildly Decreased Stage III GFR 30-59 Moderately Decreased Stage IV GFR 15-29 Severely Decreased Stage V GFR <15 Very Little GFR Left ESRD GFR <15 on EXHAUST WORKER 8 CHRONIC KIDNEY DISEASE STAGI NG PER NKF: MALE GFR INTERPRETATION: 20-49 YRS: >60 mL/min Normal 50-59 YRS: >56 mL/min Normal 60-69 YRS: >49 mL/min Normal 70-79 YRS: >42 mL/min Normal 80 and above >35 mL/min Normal FEMALE GRF INTERPRETATION: 20-39 YRS: >60 mL/min Normal 40-49 YRS: >58 mL/min Normal 50-59 YRS: >51 mL/min Normal 60-69 YRS: >45 mL/min Normal 70-79 YRS: >39 mL/min Normal 80 and above >32 mL/min NormalCLASSIFICATION CHOLESTEROL FOR ADULTS CHILDREN/ADOLESCENTS* DESIRABLE: <200 MG/DL <170 MG/DL BORDER-LINE HIGH RISK: 200-239 MG/DL 170-199 MG/DL HIGH RISK: >240 MG/DL >200 MG/DL CLASS. FOR PRIMARY LDL CHOL PREVENTION: LDL CHOL-CHILD/ADOLESCENTS* DESIRABLE: <130 MG/DL <110 MG/DL BORDERLINE-HIGH RISK: 130-159 MG/DL 110-129 MG/DL HIGH RISK: >160 MG/DL >130 MG/DL *CHILDREN AND ADOLESCENTS REPRESENTS INDIVIDUALA AGED 2-19 YEARS EXCLUSIVE. 9 CKD-EPI 10 CKD-EPI Procedures Date Code Description Status 01/07/2021 98695 Office/Outpatient Established Mo d MDM 30-39 Min Completed 09/17/2020 21762 Office/Outpatient Established Mo d MDM 30-39 Min Completed 08/06/2020 58150 Office/Outpatient Established Mo d MDM 30-39 Min Completed Medical Devices Description No Information Available Encounters Type Date Location Provider Dx Diagnosis Office Visit 01/07/2021 1:45p [place] [facility] French Patino M. D. R10.11 Right upper quadrant pain Office Visit 09/17/2020 1:15p [place] [facility] French Patino M. D. I10 Essential (primary) hypertension R10.11 Right upper quadrant pain Office Visit 08/06/2020 8:45a [place] [facility] French Patino M. D. I10 Essential (primary) hypertension E66.9 Obesity, unspecified R73.01 Impaired fasting glucose Assessments Date Code Description Provider 01/07/2021 R10.11 Right upper quadrant pain French Strong M.D. 09/17/2020 I10 Essential (primary) hypertension French Patino M.D. 09/17/2020 R10.11 Right upper quadrant pain French Strong M.D. 08/06/2020 I10 Essential (primary) hypertension French Patino M.D. 08/06/2020 E66.9 Obesity, unspecified Niko Patino M.D. 08/06/2020 R73.01 Impaired fasting glucose French Moscoso M.D. Plan of Treatment Future Appointment(s):* 02/12/2021 8:30 am - French Patino M.D. at [place] [facility] Functional Status Description No Information Available Mental Status Description No Information Available Referrals Refer to Dr Reason for Referral Status Appt Date [facility] Dermatology pearly lesion left eyelid- eval and rx Sent [address] [place] [address] [phone] [facility] fatigue- r/o MALENA Sent [address] DR. Solano And Laura Rowley, [place] [address] [place] [address] [phone]
--- OUTSIDE RECORDS SUMMARY | 2021-02-07 01:45 | CCD | Continuity of Care Document ---
Author Author Jake PATINO M.D. Organization Unknown Address [address] [address] Phone [phone] Problems Active Problems Provider Date Benign essential [...] CPT Code Status Date Vaccine Lot # [id number] Refused 01/25/2019 Influenza Virus Vaccine, Quadrivalent, Slit Virus, Im Use 3Y & Up Vital Signs Date Vital Result Comment 01/07/2021 1:35pm BP Systolic 134 mmHg BP Diastolic 84 mmHg Body Temperature 98.4 F Heart Rate 86 /min Respiratory Rate 14 /min Height 70 inches 5'10" Weight 348.00 lb [place] Body Weight 166 lb BMI (Body Mass Index) 49.9 kg/m2 O2 % BldC Oximetry 97 % 09/17/2020 1:20pm BP Systolic 154 mmHg BP Diastolic 94 mmHg Body Temperature 97.1 F Heart Rate 76 /min Respiratory Rate 16 /min Height 70 inches 5'10" Weight 242.00 lb [place] Body Weight 166 lb BMI (Body Mass [...] eGFR 128 # Calc 2 eGFR Non-Afr. [place] 110 # Calc 3 CBC 01/07/2021 [facility]/Inhouse [...] 9.0 - 13.0 CBC With Differential 11/15/2020 [facility]) [phone] White Blood Count 7.5 10 Normal 4.0-10.0 [...] 36.0-66.0 Lymph % 23.9 % Low 24.0-44.0 [place] % 5.2 % Normal 2.0-8.0 Eos % 2.3 % Normal 0.0-3.0 Baso % 0.8 % Normal 0.0-1.0 Immature Granulocyte % 0.5 % Normal 0-3.0 Nucleated Red Blood Cell % 0.0 % Normal 0-0 Neutrophils # 5.1 10 Normal 1.5-8.5 Lymph # 1.8 10 Normal 1.5-5.0 [place] # 0.4 10 Normal 0.0-0.8 Eos # 0.2 10 Normal 0.0-0.5 Baso # 0.1 10 Normal 0.0-0.2 Cardiac Marker Panel 11/15/2020 [facility]) [phone] CPK Creatine Phosphokinase 117 U/L Normal 39-30 8 CK-MB Value Mass < 1.0 NG/ML Normal <3.6 MB/CK Relative Index 0.85 Normal < Or =4 4 Troponin I < 0.02 NG/ML Normal < 0.10 5 Liver Profile 11/15/2020 [facility] [phone] Ast/Sgot 20 U/L Normal 7-37 Alt/SGPT 41 U/L Normal 12-78 Alkaline Phosphatase 102 U/L Normal 45-117 Bilirubin,Total 0.3 mg/dL Normal 0.2-1.0 Bilirubin,Direct 0.1 mg/dL Normal 0.0-0.2 Total Protein 6.5 GM/DL Normal 6.4-8.2 Albumin 3.5 GM/DL Normal 3.2-5.2 Albumin/Globulin Ratio 1.2 Normal Basic Metabolic Profile 11/15/2020 [email or web address] (Interface) [phone] Glucose, Fasting 91 mg/dL Normal 70-100 Blood [...] mg/dL Normal 8.5-10.1 Laboratory test finding 11/15/2020 [facility] (Interface) [phone] NT-Pro BNP 20 pg/mL Normal <125 Lipase 108 U/L Normal 73-393 Thyroid Stimulating Hormone 1.360 uIU/ML Normal 0.358-3.740 Free T4 0.91 ng/dL Normal 0.76-1.46 Ua W/ Reflex To Culture 09/09/2020 [facility] (Interface) [phone] Appearance, Urine RFX HAZY Normal Clear Color, Urine RFX YELLOW Normal Yellow PH,Urine RFX 5.0 units Normal 5.0-9.0 Specific [place] Ur Auto RFX 1.024 Normal 1.002-1.035 Protein, [...] /LPF Normal 0-1 CBC With Differential 09/09/2020 [facility]) [phone] White Blood Count 9.2 10 Normal 4.0-10.0 [...] 36.0-66.0 Lymph % 33.2 % Normal 24.0-44.0 [place] % 6.5 % Normal 2.0-8.0 Eos % 2.4 % Normal 0.0-3.0 Baso % 0.8 % Normal 0.0-1.0 Immature Granulocyte % 0.5 % Normal 0-3.0 Nucleated Red Blood Cell % 0.0 % Normal 0-0 Neutrophils # 5.2 10 Normal 1.5-8.5 Lymph # 3.1 10 Normal 1.5-5.0 [place] # 0.6 10 Normal 0.0-0.8 Eos # 0.2 10 Normal 0.0-0.5 Baso # 0.1 10 Normal 0.0-0.2 Liver Profile 09/09/2020 [facility] (I nterface) [phone] Ast/Sgot 21 U/L Normal 7-37 Alt/SGPT 41 U/L Normal 12-78 Alkaline Phosphatase 107 U/L Normal 45-117 Bilirubin,Total 0.4 mg/dL Normal 0.2-1.0 Bilirubin,Direct 0.1 mg/dL Normal 0.0-0.2 Total Protein 6.9 GM/DL Normal 6.4-8.2 Albumin 3.9 GM/DL Normal 3.2-5.2 Albumin/Globulin Ratio 1.3 Normal Basic Metabolic Profile 09/09/2020 [facility] ([facility]) [phone] Glucose, Fasting 103 mg/dL High 70-100 Blood [...] mg/dL Normal 8.5-10.1 Laboratory test finding 09/09/2020 [facility] ([facility]) [phone] Lipase 119 U/L Normal 73-393 CMP 08/06/2020 [...] eGFR 135 # Calc 9 eGFR Non-Afr. [place] 116 # Calc 10 Lipid Panel 08/06/2020 [...] HCT IS 5% LESS SOURCE FOR DATA: [employer] 1800 OPERATION MANUAL( AUTOMATED BLOOD COUNTS AND [...] 5 Troponin I Reference Interva l for [place] LOCI: 99th Percentile= 0.00-0.045 ng/ml Risk Stratification: [...] Little GFR Left ESRD GFR <15 on [employer]ING 7 Units are mL/min/1.73 m2 Chronic Kidney Disease Staging per NKF: Stage I & II GFR >=60 Normal to Mildly Decreased Stage III GFR 30-59 Moderately Decreased Stage IV GFR 15-29 Severely Decreased Stage V GFR <15 Very Little GFR Left ESRD GFR <15 on [employer]ING 8 CHRONIC KIDNEY DISEASE STAGI NG PER [...] CKD-EPI Procedures Date Code Description Status 01/07/2021 04894 Office/Outpatient Established Mo d MDM 30-39 Min Completed 09/17/2020 30355 Office/Outpatient Established Mo d MDM 30-39 Min Completed 08/06/2020 55607 Office/Outpatient Established Mo d MDM 30-39 Min Completed Medical Devices Description No Information Available Encounters Type Date Location Provider Dx Diagnosis Office Visit 01/07/2021 1:45p [place] [facility] French Patino M. D. R10.11 Right upper quadrant pain Office Visit 09/17/2020 1:15p [place] [facility] French Patino M. D. I10 Essential (primary) hypertension R10.11 Right upper quadrant pain Office Visit 08/06/2020 8:45a [place] [facility] French Patino M. D. I10 Essential [...] 8:30 am - French Patino M.D. at [place] [facility] Functional Status Description No Information Available Mental Status Description No Information Available Referrals Refer to Dr Reason for Referral Status Appt Date [facility] Dermatology pearly lesion left eyelid- eval and rx Sent [address] [place] [address] [phone] [facility] fatigue- r/o MALENA Sent [address] DR[address] Solano And Laura Rowley, [place] [address] [place] [address] [phone]
--- OUTSIDE RECORDS SUMMARY | 2021-02-07 01:45 | CCD | Continuity of Care Document ---
Author Author Jake MCGREGOR AL Organization Unknown Address [address] [place] [address] [place] [address] Phone [phone] Care Team Providers Care Landscape Architect And Planner Name Role Phone French Patino MD AUT[facility] [phone] Problems Description No Information Available Social History [...] Code Status Date Vaccine Reaction Lot # [id number] Given 10/06/2019 Tdap/Tetanus, Di phth Toxoids/Acellular Pertussis Vac 7Yr Or > No reaction [id number] Vital Signs Date Vital Result Comment 12/26/2019 [...] Information Available Assessments Date Code Description Provider 12/09/2020 Z20.828 Contact with and (zheng spected) exposure to other viral communicable diseases YANG Pastrana 08/02/2020 Z20.828 Contact with and (zheng spected) exposure to other viral communicable diseases YANG Damian Plan of Treatment No Information Available Functional Status Description No Information Available Mental Status Description No Information Available Referrals Description No Information Available
--- OUTSIDE RECORDS SUMMARY | 2021-02-07 01:45 | CCD | Continuity of Care Document ---
Author Author Jake PATINO M.D. Organization Unknown Address [address] [address] Phone [phone] Problems Active Problems Provider Date Benign essential [...] CPT Code Status Date Vaccine Lot # [id number] Refused 01/25/2019 Influenza Virus Vaccine, Quadrivalent, Slit Virus, Im Use 3Y & Up Vital Signs Date Vital Result Comment 01/07/2021 1:35pm BP Systolic 134 mmHg BP Diastolic 84 mmHg Body Temperature 98.4 F Heart Rate 86 /min Respiratory Rate 14 /min Height 70 inches 5'10" Weight 348.00 lb [place] Body Weight 166 lb BMI (Body Mass Index) 49.9 kg/m2 O2 % BldC Oximetry 97 % 09/17/2020 1:20pm BP Systolic 154 mmHg BP Diastolic 94 mmHg Body Temperature 97.1 F Heart Rate 76 /min Respiratory Rate 16 /min Height 70 inches 5'10" Weight 242.00 lb [place] Body Weight 166 lb BMI (Body Mass [...] eGFR 128 # Calc 2 eGFR Non-Afr. Belgian 110 # Calc 3 CBC 01/07/2021 FPA/Inhouse [...] 9.0 - 13.0 CBC With Differential 11/15/2020 [facility]) [phone] White Blood Count 7.5 10 Normal 4.0-10.0 [...] 36.0-66.0 Lymph % 23.9 % Low 24.0-44.0 [place] % 5.2 % Normal 2.0-8.0 Eos % 2.3 % Normal 0.0-3.0 Baso % 0.8 % Normal 0.0-1.0 Immature Granulocyte % 0.5 % Normal 0-3.0 Nucleated Red Blood Cell % 0.0 % Normal 0-0 Neutrophils # 5.1 10 Normal 1.5-8.5 Lymph # 1.8 10 Normal 1.5-5.0 [place] # 0.4 10 Normal 0.0-0.8 Eos # 0.2 10 Normal 0.0-0.5 Baso # 0.1 10 Normal 0.0-0.2 Cardiac Marker Panel 11/15/2020 [facility]) [phone] CPK Creatine Phosphokinase 117 U/L Normal 39-30 8 CK-MB Value Mass < 1.0 NG/ML Normal <3.6 MB/CK Relative Index 0.85 Normal < Or =4 4 Troponin I < 0.02 NG/ML Normal < 0.10 5 Liver Profile 11/15/2020 [facility] [phone] Ast/Sgot 20 U/L Normal 7-37 Alt/SGPT 41 U/L Normal 12-78 Alkaline Phosphatase 102 U/L Normal 45-117 Bilirubin,Total 0.3 mg/dL Normal 0.2-1.0 Bilirubin,Direct 0.1 mg/dL Normal 0.0-0.2 Total Protein 6.5 GM/DL Normal 6.4-8.2 Albumin 3.5 GM/DL Normal 3.2-5.2 Albumin/Globulin Ratio 1.2 Normal Basic Metabolic Profile 11/15/2020 [facility] [facility] (Interface) [phone] Glucose, Fasting 91 mg/dL Normal 70-100 Blood [...] mg/dL Normal 8.5-10.1 Laboratory test finding 11/15/2020 [facility] ([facility]) [phone] NT-Pro BNP 20 pg/mL Normal <125 Lipase 108 U/L Normal 73-393 Thyroid Stimulating Hormone 1.360 uIU/ML Normal 0.358-3.740 Free T4 0.91 ng/dL Normal 0.76-1.46 Ua W/ Reflex To Culture 09/09/2020 [employer] (Interface) [phone] Appearance, Urine RFX HAZY Normal Clear Color, Urine RFX YELLOW Normal Yellow PH,Urine RFX 5.0 units Normal 5.0-9.0 Specific [place] Ur Auto RFX 1.024 Normal 1.002-1.035 Protein, [...] /LPF Normal 0-1 CBC With Differential 09/09/2020 [facility]) [phone] White Blood Count 9.2 10 Normal 4.0-10.0 [...] 36.0-66.0 Lymph % 33.2 % Normal 24.0-44.0 [place] % 6.5 % Normal 2.0-8.0 Eos % 2.4 % Normal 0.0-3.0 Baso % 0.8 % Normal 0.0-1.0 Immature Granulocyte % 0.5 % Normal 0-3.0 Nucleated Red Blood Cell % 0.0 % Normal 0-0 Neutrophils # 5.2 10 Normal 1.5-8.5 Lymph # 3.1 10 Normal 1.5-5.0 [place] # 0.6 10 Normal 0.0-0.8 Eos # 0.2 10 Normal 0.0-0.5 Baso # 0.1 10 Normal 0.0-0.2 Liver Profile 09/09/2020 [facility] (I [facility]) [phone] Ast/Sgot 21 U/L Normal 7-37 Alt/SGPT 41 U/L Normal 12-78 Alkaline Phosphatase 107 U/L Normal 45-117 Bilirubin,Total 0.4 mg/dL Normal 0.2-1.0 Bilirubin,Direct 0.1 mg/dL Normal 0.0-0.2 Total Protein 6.9 GM/DL Normal 6.4-8.2 Albumin 3.9 GM/DL Normal 3.2-5.2 Albumin/Globulin Ratio 1.3 Normal Basic Metabolic Profile 09/09/2020 [facility] ([facility]) [phone] Glucose, Fasting 103 mg/dL High 70-100 Blood [...] mg/dL Normal 8.5-10.1 Laboratory test finding 09/09/2020 [facility] ([facility]) [phone] Lipase 119 U/L Normal 73-393 CMP 08/06/2020 [...] eGFR 135 # Calc 9 eGFR Non-Afr. [place] 116 # Calc 10 Lipid Panel 08/06/2020 [...] HCT IS 5% LESS SOURCE FOR DATA: [employer] 1800 OPERATION MANUAL( AUTOMATED BLOOD COUNTS AND [...] 5 Troponin I Reference Interva l for [place] LOCI: 99th Percentile= 0.00-0.045 ng/ml Risk Stratification: [...] Little GFR Left ESRD GFR <15 on CLERK CARRIER 7 Units are mL/min/1.73 m2 Chronic Kidney Disease Staging per NKF: Stage I & II GFR >=60 Normal to Mildly Decreased Stage III GFR 30-59 Moderately Decreased Stage IV GFR 15-29 Severely Decreased Stage V GFR <15 Very Little GFR Left ESRD GFR <15 on CLERK CARRIER 8 CHRONIC KIDNEY DISEASE STAGI NG PER [...] CKD-EPI Procedures Date Code Description Status 01/07/2021 52381 Office/Outpatient Established Mo d MDM 30-39 Min Completed 09/17/2020 14414 Office/Outpatient Established Mo d MDM 30-39 Min Completed 08/06/2020 91382 Office/Outpatient Established Mo d MDM 30-39 Min Completed Medical Devices Description No Information Available Encounters Type Date Location Provider Dx Diagnosis Office Visit 01/07/2021 1:45p [facility] French Patino M. D. R10.11 Right upper quadrant pain Office Visit 09/17/2020 1:15p [facility] French Patino M. D. I10 Essential (primary) hypertension R10.11 Right upper quadrant pain Office Visit 08/06/2020 8:45a [facility] French Patino M. D. I10 Essential [...] 8:30 am - French Patino M.D. at [facility] Functional Status Description No Information Available Mental Status Description No Information Available Referrals Refer to Dr Reason for Referral Status Appt Date [facility] Dermatology pearly lesion left eyelid- eval and rx Sent [address] [place] [address] [phone] [facility] fatigue- r/o MALENA Sent 0 DR. Solano And Laura Rowley, JonesNFroylanPFroylan [address] [place] [address] [phone]
--- OUTSIDE RECORDS SUMMARY | 2021-02-07 01:46 | CCD | Continuity of Care Document ---
Author Author Jake COLLIER MD Organization Unknown Address [address] [place] [address] [place] [address] Phone [phone] Care Team Providers Care Cloud Security Architect Name Role Phone French Patino MD AUT [phone] Problems Active Problems Provider Date Dietary management [...] by mouth once daily French Patino MD Xhgpirs-Gryeairyunskh-Ejlopdwl [phone] Tablets 1-2 by mouth as needed 10tabs [...] Test Result H/L Range Note CMP 11/15/2020 [facility] - not interfaced (315)- - Albumin Serum/Plasma 3.5 Alt - SGPT 41 Calcium Ser/Plasma Mass/Vol 9.0 Carbon Dioxide Ser/Plasm 27 Chloride Serum/Plasma 107 Alkaline Phosphatase 102 Potassium 4.4 Protein Total 6.5 Sodium 138 Ast - Sgot 20 BUN - Urea Nitrogen 16 Glucose 91 70-100 Creatinine For GFR 0.69 CPK & CPK MB 11/15/2020 [facility] - not interfaced (315)- - CPK 117 CPK-MB <1.0 Laboratory test finding 11/15/2020 [facility] - not interf aced (315)- - Troponin <0.02 NT Probnp QN Ser/Plas 20 Thyroid Stimulating Hormone 1.360 Free T4 0.91 Lipase 108 CBC without Differential 11/15/2020 [facility] - not inter faced (315)- - White Blood Count 7.5 4.0-10.0 Red Blood Count 4.74 4.30-6.10 Platelets 289 150-450 Hemoglobin 13.8 Hematocrit 40.7 Procedures Date Code Description Status 01/08/2021 42168 Office/Outpatient New Moderate M DM 45-59 Minutes Completed 01/08/2021 69279 ECG 12-Lead Completed Medical Devices Description No [...]
--- OUTSIDE RECORDS SUMMARY | 2021-02-07 01:46 | CCD | Continuity of Care Document ---
Author Organization Unknown Address Unknown Phone Unavailable Care Team Providers Care Independent Living Instructor Name Role Phone [employer] AUTM [phone] French Patino MD AUTM [phone] Problems Description No Information Available Social History Type Date Description Comments Sex Unknown Allergies and adverse reactions Active Allergies Criticality Reaction | Severity Comments Date Penicillin V Unable to assess criticality 11/27/2020 Medications Active Medications SIG Qnty Indications Ordering Provide r Date Amlodipine Besylate 10mg Tablets Daily Unknown Zfkheac-Ktmwvafstflrw-Atzdizco [phone] Tablets As Directed as needed for Headache 10tabs Unknow n Losartan Potassium/Hydrochlorothiazide 100-12.5mg Tablets Unknown Immunizations Description No Information Available Vital Signs Description No Information Available Results Test Acquired Date Facility Test Result H/L Range Note CMP 11/15/2020 [facility] - not interfaced (315)- - Albumin Serum/Plasma 3.5 Alt - SGPT 41 Calcium Ser/Plasma Mass/Vol 9.0 Carbon Dioxide Ser/Plasm 27 Chloride Serum/Plasma 107 Alkaline Phosphatase 102 Potassium 4.4 Protein Total 6.5 Sodium 138 Ast - Sgot 20 BUN - Urea Nitrogen 16 Glucose 91 70-100 Creatinine For GFR 0.69 CPK & CPK MB 11/15/2020 [facility] - not interfaced (315)- - CPK 117 CPK-MB <1.0 Laboratory test finding 11/15/2020 [facility] - not interf aced (315)- - Troponin <0.02 NT Probnp QN Ser/Plas 20 Thyroid Stimulating Hormone 1.360 Free T4 0.91 Lipase 108 CBC without Differential 11/15/2020 [facility] - not inter faced (315)- - White Blood Count 7.5 4.0-10.0 Red Blood Count 4.74 4.30-6.10 Platelets 289 150-450 Hemoglobin 13.8 Hematocrit 40.7 Procedures Description No Information Available Medical Devices Description No Information Available Encounters Description No Information Available Assessments Description No Information Available Plan of Treatment Future Appointment(s):* 01/08/2021 8:00 am - Miky Collier MD at Main Office Functional Status Description No Information Available Mental Status Description No Information Available Referrals Description No Information Available"
--- OUTSIDE RECORDS SUMMARY | 2021-02-07 01:46 | CCD | Continuity of Care Document ---
Author Author Jake ADDISON N.P. Organization Unknown Address [address] [place] [address] Phone [phone] Care Team Providers Care Christian Education Director Name Role Phone French Patino M.D. [facility] [phone] Problems Description No Information Available Social History Type Date Description Comments Sex Unknown Tobacco Use Reviewed: 11/06/20 Patient has never smoked Smoking Status Reviewed: 11/06/20 Patient has never smoked Allergies, Adverse Reactions, Alerts Active Allergies Criticality Reaction | Severity Comments Date Penicillin V Unable to assess criticality 11/06/2020 Medications Active Medications SIG Qnty Indications Ordering Provide r Date Losartan Potassium/Hydrochlorothiazide 100-12.5mg Tablets 1 tab by mouth every day 60tabs Unknown 0 Amlodipine Besylate 10mg Tablets 1 tab by mouth every day Unknown Immunizations Description No Information Available Vital Signs Date Vital Result Comment 12/03/2020 3:05pm BP Systolic 134 mmHg BP Diastolic 88 mmHg Heart Rate 75 /min O2 % BldC Oximetry 99 % Height 70 inches 5'10" Weight 349.00 lb BMI (Body Mass Index) 50.1 kg/m2 [place] Body Weight 166 lb Weight 158.306 kg BSA (Body Surface Area) 2.64 m2 11/06/2020 2:11pm BP Systolic 132 mmHg BP Diastolic 84 mmHg Heart Rate 78 /min O2 % BldC Oximetry 98 % Height 70 inches 5'10" Weight 349.00 lb BMI (Body Mass Index) 50.1 kg/m2 [place] Body Weight 166 lb Neck Circumference in inches 20 [place] Score 4 Weight 158.306 kg BSA (Body Surface Area) 2.64 m2 Results Description No Information Available Procedures Date Code Description Status 11/06/2020 91847 Office/Outpatient New Low [facility] 30 -44 Minutes Completed Medical Devices Description No Information Available Encounters Type Date Location Provider Dx Diagnosis Office Visit 11/06/2020 2:15p [facility] Pulmonary/Thoracic Madeline Addison N.P. R06.83 Snoring R40.0 Somnolence Assessments Date Code Description Provider 12/03/2020 G47.33 Obstructive sleep apnea (adult) (pediatric) Tiffanie Addison N.P. 12/03/2020 Z71.2 Person consulting fo r explanation of examination or test findings Tiffanie Addison N.P. 11/06/2020 R06.83 Snoring Tiffanie Addison N .P. 11/06/2020 R40.0 Somnolence Tiffanie Addison N .P. Plan of Treatment Future Appointment(s):* 02/18/2021 3:30 pm - Rufino Armstrong MD at [facility] Pulmonary/Thoracic * 12/26/2020 7:45 pm - [facility] Sleep Lab at [facility] PulmonaryThoracic 12/03/2020 - Tiffanie Addison, N.Francis.* G47.33 Obstructive sleep apnea (adult) (pediatric) * Z71.2 Person consulting for explanation of examination or test findings * * New Orders:* Sleep Titration Study, Ordered: 12/03/20 * Comments:* 1. Given a diagnosis of MALENA, the patient warrants a CPAP titration study.2. We discussed insurance guidelines for CPAP compliance and the patient was advised to call with any difficulties tolerating CPAP. * Follow up:* 1. Follow up eight weeks after titration with a download to monitor compliance and tolerance of pressure therapy. (Can be with Dr. Armstrong in a 30 MINUTE SLOT if needed) Functional Status Description No Information Available Mental Status Description No Information Available Referrals Refer to Reason for Referral Status Appt Date Tiffanie Addison F.NSana FATIGUE R/O MALENA Scheduled [facility] Medical Practice-Pulmonary [address] [place], [place] [id number] [phone]
--- OUTSIDE RECORDS SUMMARY | 2021-02-07 01:46 | CCD | Continuity of Care Document ---
Author Author Jake ADDISON N.P. Organization Unknown Address [address] [place] [address] Phone [phone] Care Team Providers Care Dictaphone Technician Name Role Phone French Patino M.D. [facility] [phone] Problems Description No Information Available Social History [...] lb BMI (Body Mass Index) 50.1 kg/m2 [place] Body Weight 166 lb Weight 158.306 kg BSA (Body Surface Area) 2.64 m2 11/06/2020 2:11pm BP Systolic 132 mmHg BP Diastolic 84 mmHg Heart Rate 78 /min O2 % BldC Oximetry 98 % Height 70 inches 5'10" Weight 349.00 lb BMI (Body Mass Index) 50.1 kg/m2 [place] Body Weight 166 lb Neck Circumference in inches 20 [place] Score 4 Weight 158.306 kg BSA (Body Surface Area) 2.64 m2 Results Description No Information Available Procedures Date Code Description Status 12/03/2020 44023 Office/Outpatient Established Lo w MDM 20-29 Min Completed 11/06/2020 51130 Office/Outpatient New Low MDM 30 -44 Minutes Completed Medical Devices Description No Information Available Encounters Type Date Location Provider Dx Diagnosis Office Visit 12/03/2020 3:15p [facility] Pulmonary/Thoracic Madeline Addison, N.P. G47.33 Obstructive sleep apnea (adult) (pediatr ic) Z71.2 Person consulting for explan ation of exam or test findings Office Visit 11/06/2020 2:15p [facility] Pulmonary/Thoracic Madeline Addison, N.P. R06.83 Snoring R40.0 Somnolence Assessments Date Code Description Provider 12/03/2020 G47.33 Obstructive sleep apnea (adult) (pediatric) Tiffanie Addison N.Kenn 12/03/2020 Z71.2 Person consulting fo r explanation of examination or test findings Tiffanie Addison N.Kenn 11/06/2020 R06.83 Snoring Tiffanie Addison N .Kenn 11/06/2020 R40.0 Somnolence Tiffanie Addison, N .P. Plan of Treatment Future Appointment(s):* 02/18/2021 3:30 pm - Rufino Armstrong MD at [facility] * 12/26/2020 7:45 pm - [facility] Sleep Lab at [facility] 12/03/2020 - Tiffanie Addison, N.P.* G47.33 Obstructive sleep apnea (adult) (pediatric) * [...] for Referral Status Appt Date Tiffanie Addison F.N.P. FATIGUE R/O MALENA Scheduled [facility]-Pulmonary [address] [place], [place] [address] [phone]
--- OUTSIDE RECORDS SUMMARY | 2021-02-07 01:46 | CCD | Continuity of Care Document ---
Author Author Jake ADDISON N.P. Organization Unknown Address [address] [place] [address] Phone [phone] Care Team Providers Care Story Reader Name Role Phone French Patino M.D. [facility] [phone] Problems Description No Information Available Social History [...] lb BMI (Body Mass Index) 50.1 kg/m2 [place] Body Weight 166 lb Weight 158.306 kg BSA (Body Surface Area) 2.64 m2 11/06/2020 2:11pm BP Systolic 132 mmHg BP Diastolic 84 mmHg Heart Rate 78 /min O2 % BldC Oximetry 98 % Height 70 inches 5'10" Weight 349.00 lb BMI (Body Mass Index) 50.1 kg/m2 [place] Body Weight 166 lb Neck Circumference in inches 20 [place] Score 4 Weight 158.306 kg BSA (Body Surface Area) 2.64 m2 Results Description No Information Available Procedures Date Code Description Status 11/06/2020 00342 Office/Outpatient New Low [facility] 30 -44 Minutes Completed Medical Devices Description No Information Available Encounters Type Date Location Provider Dx Diagnosis Office Visit 11/06/2020 2:15p [facility] Pulmonary/Thoracic Madeline Addison N.P. R06.83 Snoring R40.0 [...] pm - Rufino Armstrong MD at [facility] Pulmonary/Thoracic * 12/26/2020 7:45 pm - [facility] Sleep Lab at [facility] PulmonaryThoracic 12/03/2020 - Tiffanie Addison, N.Francis.* G47.33 [...] Addison F.NSana FATIGUE R/O MALENA Scheduled [facility] Medical Practice-Pulmonary [address] [place], [place] [id number] [phone]
--- OUTSIDE RECORDS SUMMARY | 2021-02-07 01:46 | CCD | Continuity of Care Document ---
Author Author Jake PATINO M.D. Organization Unknown Address [address] [address] Phone [phone] Problems Active Problems Provider Date Benign essential [...] CPT Code Status Date Vaccine Lot # [id number] Refused 01/25/2019 Influenza Virus Vaccine, Quadrivalent, Slit Virus, Im Use 3Y & Up Vital Signs Date Vital Result Comment 01/07/2021 1:35pm BP Systolic 134 mmHg BP Diastolic 84 mmHg Body Temperature 98.4 F Heart Rate 86 /min Respiratory Rate 14 /min Height 70 inches 5'10" Weight 348.00 lb [place] Body Weight 166 lb BMI (Body Mass Index) 49.9 kg/m2 O2 % BldC Oximetry 97 % 09/17/2020 1:20pm BP Systolic 154 mmHg BP Diastolic 94 mmHg Body Temperature 97.1 F Heart Rate 76 /min Respiratory Rate 16 /min Height 70 inches 5'10" Weight 242.00 lb [place] Body Weight 166 lb BMI (Body Mass Index) 34.7 kg/m2 O2 % BldC Oximetry 98 % Results Test Acquired Date Facility Test Result H/L Range Note CBC With Differential 11/15/2020 [facility]) [phone] White Blood Count 7.5 10 Normal 4.0-10.0 [...] 36.0-66.0 Lymph % 23.9 % Low 24.0-44.0 [place] % 5.2 % Normal 2.0-8.0 Eos % 2.3 % Normal 0.0-3.0 Baso % 0.8 % Normal 0.0-1.0 Immature Granulocyte % 0.5 % Normal 0-3.0 Nucleated Red Blood Cell % 0.0 % Normal 0-0 Neutrophils # 5.1 10 Normal 1.5-8.5 Lymph # 1.8 10 Normal 1.5-5.0 Pitt # 0.4 10 Normal 0.0-0.8 Eos # 0.2 10 Normal 0.0-0.5 Baso # 0.1 10 Normal 0.0-0.2 Cardiac Marker Panel 11/15/2020 [facility]) [phone] CPK Creatine Phosphokinase 117 U/L Normal 39-30 8 CK-MB Value Mass < 1.0 NG/ML Normal <3.6 MB/CK Relative Index 0.85 Normal < Or =4 1 Troponin I < 0.02 NG/ML Normal < 0.10 2 Liver Profile 11/15/2020 [facility] [phone] Ast/Sgot 20 U/L Normal 7-37 Alt/SGPT 41 U/L Normal 12-78 Alkaline Phosphatase 102 U/L Normal 45-117 Bilirubin,Total 0.3 mg/dL Normal 0.2-1.0 Bilirubin,Direct 0.1 mg/dL Normal 0.0-0.2 Total Protein 6.5 GM/DL Normal 6.4-8.2 Albumin 3.5 GM/DL Normal 3.2-5.2 Albumin/Globulin Ratio 1.2 Normal Basic Metabolic Profile 11/15/2020 [facility] (Interface) [phone] Glucose, Fasting 91 mg/dL Normal 70-100 Blood Urea Nitrogen 16 mg/dL Normal 7-18 Creatinine For GFR 0.69 mg/dL Low 0.70-1.30 Glomerular Filtration Rate > 60.0 Normal >60 3 Sodium Level 138 mEq/L Normal 136-145 Potassium Serum 4.4 mEq/L Normal 3.5-5.1 Chloride Level 107 mEq/L Normal 98-107 Carbon Dioxide Level 27 mEq/L Normal 21-32 Anion Gap 4 mEq/L Low 8-16 Calcium Level 9.0 mg/dL Normal 8.5-10.1 Laboratory test finding 11/15/2020 [facility] (Interface) [phone] NT-Pro BNP 20 pg/mL Normal <125 Lipase 108 U/L Normal 73-393 Thyroid Stimulating Hormone 1.360 uIU/ML Normal 0.358-3.740 Free T4 0.91 ng/dL Normal 0.76-1.46 Ua W/ Reflex To Culture 09/09/2020 [facility] (Interface) [phone] Appearance, Urine RFX HAZY Normal Clear Color, Urine RFX YELLOW Normal Yellow PH,Urine RFX 5.0 units Normal 5.0-9.0 Specific [place] Ur Auto RFX 1.024 Normal 1.002-1.035 Protein, [...] /LPF Normal 0-1 CBC With Differential 09/09/2020 [facility] ([facility]) [phone] White Blood Count 9.2 10 Normal 4.0-10.0 [...] 36.0-66.0 Lymph % 33.2 % Normal 24.0-44.0 Pitt % 6.5 % Normal 2.0-8.0 Eos % 2.4 % Normal 0.0-3.0 Baso % 0.8 % Normal 0.0-1.0 Immature Granulocyte % 0.5 % Normal 0-3.0 Nucleated Red Blood Cell % 0.0 % Normal 0-0 Neutrophils # 5.2 10 Normal 1.5-8.5 Lymph # 3.1 10 Normal 1.5-5.0 Pitt # 0.6 10 Normal 0.0-0.8 Eos # 0.2 10 Normal 0.0-0.5 Baso # 0.1 10 Normal 0.0-0.2 Liver Profile 09/09/2020 [facility] (I [facility]) [phone] Ast/Sgot 21 U/L Normal 7-37 Alt/SGPT 41 U/L Normal 12-78 Alkaline Phosphatase 107 U/L Normal 45-117 Bilirubin,Total 0.4 mg/dL Normal 0.2-1.0 Bilirubin,Direct 0.1 mg/dL Normal 0.0-0.2 Total Protein 6.9 GM/DL Normal 6.4-8.2 Albumin 3.9 GM/DL Normal 3.2-5.2 Albumin/Globulin Ratio 1.3 Normal Basic Metabolic Profile 09/09/2020 [facility] (Interface) [phone] Glucose, Fasting 103 mg/dL High 70-100 Blood Urea Nitrogen 14 mg/dL Normal 7-18 Creatinine For GFR 0.80 mg/dL Normal 0.70-1.30 Glomerular Filtration Rate > 60.0 Normal >60 4 Sodium Level 140 mEq/L Normal 136-145 Potassium Serum 4.1 mEq/L Normal 3.5-5.1 Chloride Level 107 mEq/L Normal 98-107 Carbon Dioxide Level 30 mEq/L Normal 21-32 Anion Gap 3 mEq/L Low 8-16 Calcium Level 8.7 mg/dL Normal 8.5-10.1 Laboratory test finding 09/09/2020 [facility] (Interface) [phone] Lipase 119 U/L Normal 73-393 CMP 08/06/2020 [facility] Glu 104 mg/dL 70 - 110 5 BUN 14 mg/dL 8 - 23 Creat [...] Gap 16 mmol/L eGFR 135 # Calc 6 eGFR Non-Afr. Cook Islander 116 # Calc 7 Lipid Panel 08/06/2020 [facility] Chol 177 mg/dL 0 - 200 Trig 147 mg/dL 35 - 200 HDL 48 mg/dL 35 - 55 LDL_C 99 Calc 75 - 129 Cho/HDL Ratio 3.7 CALC Laboratory test finding 08/06/2020 [facility] TSH 2.535 ulU/mL 0.60 - 4.8 1 DIAGNOSIS CRITERIA MMB ng/ml Relative Index (RI) NON-AMI < or = 5 N/A VILLATORO ZONE > 5 < or = 4 AMI > 5 > 4 2 Troponin I Reference Interva l for Siemens Cyclone LOCI: 99th Percentile= 0.00-0.045 ng/ml Risk Stratification: <= 0.10 ng/ml Decreased Risk for Adverse Clinical Events. 0.10-1.50 ng/ml Increased Risk for Adv erse Clinical Events. Evaluation of additional criterion and/or repeat testing in 2-6 hours is suggested to rule out myocardial damage. >= 1.50 ng/ml Indicative of Myocardial Injury. 3 Units are mL/min/1.73 m2 Chronic Kidney Disease Staging per NKF: Stage I & II GFR >=60 Normal to Mildly Decreased Stage III GFR 30-59 Moderately Decreased Stage IV GFR 15-29 Severely Decreased Stage V GFR <15 Very Little GFR Left ESRD GFR <15 on [employer] 4 Units are mL/min/1.73 m2 Chronic Kidney Disease Staging per NKF: Stage I & II GFR >=60 Normal to Mildly Decreased Stage III GFR 30-59 Moderately Decreased Stage IV GFR 15-29 Severely Decreased Stage V GFR <15 Very Little GFR Left ESRD GFR <15 on [employer] 5 CHRONIC KIDNEY DISEASE STAGI NG PER NKF: [...] ADOLESCENTS REPRESENTS INDIVIDUALA AGED 2-19 YEARS EXCLUSIVE. 6 CKD-EPI 7 CKD-EPI Procedures Date Code Description Status 01/07/2021 61471 Office/Outpatient Established Mo d MDM 30-39 Min Completed 09/17/2020 34882 Office/Outpatient Established Mo d MDM 30-39 Min Completed 08/06/2020 71490 Office/Outpatient Established Mo d MDM 30-39 Min Completed Medical Devices Description No Information Available Encounters Type Date Location Provider Dx Diagnosis Office Visit 01/07/2021 1:45p [place] [facility] French Patino M. D. R10.11 Right upper quadrant pain Office Visit 09/17/2020 1:15p [place] [facility] French Patino M. D. I10 Essential (primary) hypertension R10.11 Right upper quadrant pain Office Visit 08/06/2020 8:45a [place] [facility] French Pation M. D. I10 Essential (primary) hypertension E66.9 Obesity, unspecified R73.01 Impaired fasting glucose Assessments Date Code Description Provider 01/07/2021 R10.11 Right upper quadrant pain French Strong M.D. 09/17/2020 I10 Essential (primary) hypertension French Patino M.D. 09/17/2020 R10.11 Right upper quadrant pain French tSrong M.D. 08/06/2020 I10 Essential (primary) hypertension French Patino M.D. 08/06/2020 E66.9 Obesity, unspecified Niko Patino M.D. 08/06/2020 R73.01 Impaired fasting glucose French Moscoso M.D. Plan of Treatment Future Appointment(s):* 02/12/2021 8:30 am - French Patino M.D. at [facility] Functional Status Description No Information Available Mental Status Description No Information Available Referrals Refer to Reason for Referral Status Appt Date [facility] Dermatology pearly lesion left eyelid- eval and rx Sent [address] [place], [facility] [address] [place] [address] [phone] [facility] fatigue- r/o MALENA Sent [address] DR[address] Solano And Deon Melchor [address] [place] [address] [phone]
--- OUTSIDE RECORDS SUMMARY | 2021-02-07 01:46 | CCD | Continuity of Care Document ---
Author Author Jake MCGREGOR [place] Organization Unknown Address [address] [place] [address] [place] [address] Phone [phone] Care Team Providers Care Customer Service Manager Name Role Phone French Patino MD AUTM [phone] Problems Description No Information Available Social History Type Date Description Comments Sex Unknown ETOH Use Rarely consumes alcohol Tobacco Use Start: Unknown Patient has never smoked Tobacco Use Start: Unknown The Patient Has Never Vaped Smoking Status Reviewed: 12/26/19 The Patient Has Never Vaped Allergies, Adverse Reactions, Alerts Active Allergies Criticality Reaction | Severity Comments Date Penicillins Unable to assess criticality 07/03/2013 Medications Active Medications SIG Qnty Indications Ordering Provide r Date Losartan Potassium Unknown Amlodipine Besylate Unknown Nyquil last dose last night around midnight Unknown Aleve 220mg Capsules yesterda y Unknown Immunizations CPT Code Status Date Vaccine Reaction Lot # [id number] Given 10/06/2019 Tdap/Tetanus, Di phth Toxoids/Acellular Pertussis Vac 7Yr Or > No reaction [id number] Vital Signs Date Vital Result Comment 12/26/2019 [...]
--- OUTSIDE RECORDS SUMMARY | 2021-02-07 01:46 | CCD | Continuity of Care Document ---
Author Author Jake PATINO M.D. Organization Unknown Address [address] [address] Phone [phone] Problems Active Problems Provider Date Benign essential hypertension French Patino M.D. Onset: 05/03/2013 Essential hypertension French Patino M.D. Onset: 2014 Hyperglycemia French Patino M.D. Onset: 0 Social History Type Date Description Comments Sex Unknown ETOH Use Drinks Beer,Wine and Liquor-14 D rinks per week Tobacco Use Start: Unknown Patient has never smoked Allergies, Adverse Reactions, [...] CPT Code Status Date Vaccine Lot # [id number] Refused 01/25/2019 Influenza Virus Vaccine, Quadrivalent, Slit Virus, Im Use 3Y & Up Vital Signs Date Vital Result Comment 09/17/2020 1:20pm BP Systolic 154 mmHg BP Diastolic 94 mmHg Body Temperature 97.1 F Heart Rate 76 /min Respiratory Rate 16 /min Height 70 inches 5'10" Weight 242.00 lb [place] Body Weight 166 lb BMI (Body Mass Index) 34.7 kg/m2 O2 % BldC Oximetry 98 % 08/06/2020 8:43am BP Systolic 142 mmHg BP Diastolic 82 mmHg Body Temperature 97.4 F Heart Rate 74 /min Respiratory Rate 18 /min Height 70 inches 5'10" Weight 354.00 lb [place] Body Weight 166 lb BMI (Body Mass Index) 50.8 kg/m2 O2 % BldC Oximetry 99 % Results Test Acquired Date Facility Test Result H/L Range Note CBC With Differential 11/15/2020 [facility] (Interface) [phone] White Blood Count 7.5 10 Normal 4.0-10.0 [...] 36.0-66.0 Lymph % 23.9 % Low 24.0-44.0 [place] % 5.2 % Normal 2.0-8.0 Eos % 2.3 % Normal 0.0-3.0 Baso % 0.8 % Normal 0.0-1.0 Immature Granulocyte % 0.5 % Normal 0-3.0 Nucleated Red Blood Cell % 0.0 % Normal 0-0 Neutrophils # 5.1 10 Normal 1.5-8.5 Lymph # 1.8 10 Normal 1.5-5.0 Sharkey # 0.4 10 Normal 0.0-0.8 Eos # 0.2 10 Normal 0.0-0.5 Baso # 0.1 10 Normal 0.0-0.2 Ua W/ Reflex To Culture 09/09/2020 [facility] (Interface) [phone] Appearance, Urine RFX HAZY Normal Clear Color, Urine RFX YELLOW Normal Yellow PH,Urine RFX 5.0 units Normal 5.0-9.0 Specific [place] Ur Auto RFX 1.024 Normal 1.002-1.035 Protein, [...] /LPF Normal 0-1 CBC With Differential 09/09/2020 [facility]) [phone] White Blood Count 9.2 10 Normal 4.0-10.0 [...] 36.0-66.0 Lymph % 33.2 % Normal 24.0-44.0 [place] % 6.5 % Normal 2.0-8.0 Eos % 2.4 % Normal 0.0-3.0 Baso % 0.8 % Normal 0.0-1.0 Immature Granulocyte % 0.5 % Normal 0-3.0 Nucleated Red Blood Cell % 0.0 % Normal 0-0 Neutrophils # 5.2 10 Normal 1.5-8.5 Lymph # 3.1 10 Normal 1.5-5.0 Sharkey # 0.6 10 Normal 0.0-0.8 Eos # 0.2 10 Normal 0.0-0.5 Baso # 0.1 10 Normal 0.0-0.2 Liver Profile 09/09/2020 [facility] (I [facility]terface) [phone] Ast/Sgot 21 U/L Normal 7-37 Alt/SGPT 41 U/L Normal 12-78 Alkaline Phosphatase 107 U/L Normal 45-117 Bilirubin,Total 0.4 mg/dL Normal 0.2-1.0 Bilirubin,Direct 0.1 mg/dL Normal 0.0-0.2 Total Protein 6.9 GM/DL Normal 6.4-8.2 Albumin 3.9 GM/DL Normal 3.2-5.2 Albumin/Globulin Ratio 1.3 Normal Basic Metabolic Profile 09/09/2020 [facility] (Interface) [phone] Glucose, Fasting 103 mg/dL High 70-100 Blood Urea Nitrogen 14 mg/dL Normal 7-18 Creatinine For GFR 0.80 mg/dL Normal 0.70-1.30 Glomerular Filtration Rate > 60.0 Normal >60 1 Sodium Level 140 mEq/L Normal 136-145 Potassium Serum 4.1 mEq/L Normal 3.5-5.1 Chloride Level 107 mEq/L Normal 98-107 Carbon Dioxide Level 30 mEq/L Normal 21-32 Anion Gap 3 mEq/L Low 8-16 Calcium Level 8.7 mg/dL Normal 8.5-10.1 Laboratory test finding 09/09/2020 [email or web address] (Interface) [phone] Lipase 119 U/L Normal 73-393 CMP 08/06/2020 [facility] Glu 104 mg/dL 70 - 110 2 BUN 14 mg/dL 8 - 23 Creat [...] Gap 16 mmol/L eGFR 135 # Calc 3 eGFR Non-Afr. Malaysian 116 # Calc 4 Lipid Panel 08/06/2020 [facility] Chol 177 mg/dL 0 - 200 Trig 147 mg/dL 35 - 200 HDL 48 mg/dL 35 - 55 LDL_C 99 Calc 75 - 129 Cho/HDL Ratio 3.7 CALC Laboratory test finding 08/06/2020 [facility] TSH 2.535 ulU/mL 0.60 - 4.8 1 Units are mL/min/1.73 m2 Chronic Kidney Disease Staging per NKF: Stage I & II GFR >=60 Normal to Mildly Decreased Stage III GFR 30-59 Moderately Decreased Stage IV GFR 15-29 Severely Decreased Stage V GFR <15 Very Little GFR Left ESRD GFR <15 on [facility] CODER 2 CHRONIC KIDNEY DISEASE STAGI NG PER NKF: [...] ADOLESCENTS REPRESENTS INDIVIDUALA AGED 2-19 YEARS EXCLUSIVE. 3 CKD-EPI 4 CKD-EPI Procedures Date Code Description Status 09/17/2020 89468 Office/Outpatient Established Mo d MDM 30-39 Min Completed 08/06/2020 79421 Office/Outpatient Established Mo d MDM 30-39 Min Completed Medical Devices Description No Information Available Encounters Type Date Location Provider Dx Diagnosis Office Visit 09/17/2020 1:15p [place] [facility] French Patino M. D. I10 Essential (primary) hypertension R10.11 Right upper quadrant pain Office Visit 08/06/2020 8:45a [place] [facility] French Patino M. D. I10 Essential (primary) hypertension E66.9 Obesity, unspecified R73.01 Impaired fasting glucose Assessments Date Code Description Provider 09/17/2020 I10 Essential (primary) hypertension French Patino M.D. 09/17/2020 R10.11 Right upper quadrant pain French Strong M.D. 08/06/2020 I10 Essential (primary) hypertension French Patino M.D. 08/06/2020 E66.9 Obesity, unspecified Niko Patino M.D. 08/06/2020 R73.01 Impaired fasting glucose French Moscoso M.D. Plan of Treatment Future Appointment(s):* 02/12/2021 8:30 am - French Patino M.D. at [facility] Functional Status Description No Information Available Mental Status Description No Information Available Referrals Refer to Dr Reason for Referral Status Appt Date [facility] Dermatology pearly lesion left eyelid- eval and rx Sent [address] [place] [address] [phone] [facility] fatigue- r/o MALENA Sent [address] DR[address] Solano And Laura Rowley, Cynthia.N[address]PFroylan [address] [place] [address] [phone]
--- OUTSIDE RECORDS SUMMARY | 2021-02-07 01:46 | CCD | Continuity of Care Document ---
Author Author Jake MCGREGOR [place] Organization Unknown Address [address] [place] [address] [place] [address] Phone [phone] Care Team Providers Care Patient Access Director Name Role Phone French Patino MD AUTM [phone] Problems Description No Information Available Social History [...] Code Status Date Vaccine Reaction Lot # [id number] Given 10/06/2019 Tdap/Tetanus, Di phth Toxoids/Acellular Pertussis Vac 7Yr Or > No reaction [id number] Vital Signs Date Vital Result Comment 12/26/2019 [...] Information Available Assessments Date Code Description Provider 08/02/2020 Z20.828 Contact with and (zheng spected) exposure to other viral communicable diseases YANG Damian Plan of Treatment No Information Available Functional Status Description No Information Available Mental Status Description No Information Available Referrals Description No Information Available
--- OUTSIDE RECORDS SUMMARY | 2021-02-07 01:46 | CCD ---
Author Author [facility] Organization [facility] Address Unknown Phone Unavailable Care Team Providers Care Ict Trainer Name Role Phone Sara Ely Unavailable PROBLEMS Type Condition ICD9-CM Code CWO35-GO Code Onset Dates Condition S tatus W/U Status Risk SNOMED Code Notes Problem Kidney stone 592.0 Active confirmed 3456384 [id number] Problem Ureteral stone with hydronephrosis N13.2 Activ e confirmed [id number] ALLERGIES Allergen (clinical drug ingredient) Drug/Non Drug Allergy do cumented on EMR Reaction Allergy Type Onset Date Status Penicillin (For Allergies Use Only) Hives Drug Allerg y Active ENCOUNTERS from 1978 to 2020-11-13 Encounter Location Date Provider Diagnosis [facility] Dermatology [address] [place] [address] [place] [address] Nov, Sara Ely Milial cyst L72.0 IMMUNIZATIONS No Information SOCIAL HISTORY Sex Assigned At : Social History Observation Description Sex Assigned At Unknown REASON FOR REFERRAL No Information VITAL SIGNS Weight 347.8 lbs Nov, Weight-kg 157.76 kg Nov, Height 70 in Nov, BMI 49.90 kg/m2 Nov, Blood pressure systolic 134 mm Hg Nov, Blood pressure diastolic 82 mm Hg Nov, MEDICATIONS Medication SIG (Take, Route, Frequency, Duration) Notes Start Da te End Date Status Flomax 0.4 MG 1 capsule Orally Once a day for 30 day(s) May, Not-Taking Losartan Potassium-HCTZ 100-12.5 MG 1 tablet Orally Once a day f or 30 day(s) Active amLODIPine Besylate 10 MG 1 tablet Orally Once a day Active hydroCHLOROthiazide 25 MG 1 tablet Orally Once a day for 30 day(s) Not-Taking Lisinopril 10 MG 1 tablet Orally Once a day for 30 day(s) Not-Taking Losartan Potassium 25 MG one half Orally Once a day Not-Taking PROCEDURES No Information RESULTS No Results REASON FOR VISIT lesion of eyelid MEDICAL (GENERAL) HISTORY Type Description Date Medical History HTN Medical History Kidney Stone Surgical History Repair fracture - left arm (as child) ? Surgical History T&A (as child) ? Surgical History Right ESWL 05/10/2012 Surgical History Right JJ stent placement 06/29/13 Surgical History Right ESWL 07/06/13, 08/17/13, 09/05 Surgical History Cystoscopy, Left Retograde P yelogram, Left Ureteroscopy, Laser Stone Lithotripsy, Basket Extraction of Stones and Left JJ Stent Exchange 10/24/13 Goals Section No Information Health Concerns No Information MEDICAL EQUIPMENT No Information MENTAL STATUS No Information FUNCTIONAL STATUS No Information ASSESSMENTS Encounter Date Diagnosis Assessment Notes Treatment Notes Treatm ent Clinical Notes Nov, Milial cyst (ICD-10 - L72.0) Discussed with the patient that milia are small, benign cysts that are common on the face or at the sites of hanson. They cannot be removed by squeezing them, a puncture must be made in the skin to accomplish the removal. Treatment of these lesions is considered cosmetic. PLAN OF TREATMENT Treatment Notes Assessment Notes Clinical Notes Milial cyst Discussed with the p atient that milia are small, benign cysts that are common on the face or at the sites of hanson. They cannot be removed by squeezing them, a puncture must be made in the skin to accomplish the removal. Treatment of these lesions is considered cosmetic. Next Appt Details prn Reason: Insurance Providers Payer Name Payer Address Payer Phone Insured Name Patient Relati onship to Insured Coverage Start Date Coverage End Date [facility] [address] [facility] [id number] EM KELLER self
--- OUTSIDE RECORDS SUMMARY | 2021-02-07 01:46 | CCD | Continuity of Care Document ---
Author Author Jake PATINO M.D. Organization Unknown Address [address] [address] Phone [phone] Problems Active Problems Provider Date Benign essential [...] 1 by mouth every day 90tabs French Ptaino M.D. 09/17/2020 Amlodipine Besylate 10mg Tablets take 1 tablet by mouth once daily 90tabs French Patino M. D. 06/11/2015 Immunizations CPT Code Status Date Vaccine Lot # [id number] Refused 01/25/2019 Influenza Virus Vaccine, Quadrivalent, Slit Virus, Im Use 3Y & Up Vital Signs Date Vital Result Comment 09/17/2020 1:20pm BP Systolic 154 mmHg BP Diastolic 94 mmHg Body Temperature 97.1 F Heart Rate 76 /min Respiratory Rate 16 /min Height 70 inches 5'10" Weight 242.00 lb [place] Body Weight 166 lb BMI (Body Mass Index) 34.7 kg/m2 O2 % BldC Oximetry 98 % 08/06/2020 8:43am BP Systolic 142 mmHg BP Diastolic 82 mmHg Body Temperature 97.4 F Heart Rate 74 /min Respiratory Rate 18 /min Height 70 inches 5'10" Weight 354.00 lb [place] Body Weight 166 lb BMI (Body Mass Index) 50.8 kg/m2 O2 % BldC Oximetry 99 % Results Test Acquired Date Facility Test Result H/L Range Note CBC With Differential 11/15/2020 [facility]) [phone] White Blood Count 7.5 10 Normal 4.0-10.0 [...] 36.0-66.0 Lymph % 23.9 % Low 24.0-44.0 [place] % 5.2 % Normal 2.0-8.0 Eos % 2.3 % Normal 0.0-3.0 Baso % 0.8 % Normal 0.0-1.0 Immature Granulocyte % 0.5 % Normal 0-3.0 Nucleated Red Blood Cell % 0.0 % Normal 0-0 Neutrophils # 5.1 10 Normal 1.5-8.5 Lymph # 1.8 10 Normal 1.5-5.0 [place] # 0.4 10 Normal 0.0-0.8 Eos # 0.2 10 Normal 0.0-0.5 Baso # 0.1 10 Normal 0.0-0.2 Cardiac Marker Panel 11/15/2020 [facility] ( [facility]) [phone] CPK Creatine Phosphokinase 117 U/L Normal 39-30 8 CK-MB Value Mass < 1.0 NG/ML Normal <3.6 MB/CK Relative Index 0.85 Normal < Or =4 1 Troponin I < 0.02 NG/ML Normal < 0.10 2 Liver Profile 11/15/2020 [facility] ([facility]) [phone] Ast/Sgot 20 U/L Normal 7-37 Alt/SGPT 41 U/L Normal 12-78 Alkaline Phosphatase 102 U/L Normal 45-117 Bilirubin,Total 0.3 mg/dL Normal 0.2-1.0 Bilirubin,Direct 0.1 mg/dL Normal 0.0-0.2 Total Protein 6.5 GM/DL Normal 6.4-8.2 Albumin 3.5 GM/DL Normal 3.2-5.2 Albumin/Globulin Ratio 1.2 Normal Basic Metabolic Profile 11/15/2020 [facility] [phone] Glucose, Fasting 91 mg/dL Normal 70-100 Blood [...] mg/dL Normal 8.5-10.1 Laboratory test finding 11/15/2020 [facility] [phone] NT-Pro BNP 20 pg/mL Normal <125 Lipase 108 U/L Normal 73-393 Thyroid Stimulating Hormone 1.360 uIU/ML Normal 0.358-3.740 Free T4 0.91 ng/dL Normal 0.76-1.46 Ua W/ Reflex To Culture 09/09/2020 [id number] [phone] Appearance, Urine RFX HAZY Normal Clear Color, Urine RFX YELLOW Normal Yellow PH,Urine RFX 5.0 units Normal 5.0-9.0 Specific [place] Ur Auto RFX 1.024 Normal 1.002-1.035 Protein, [...] /LPF Normal 0-1 CBC With Differential 09/09/2020 [facility] ([facility]) [phone] White Blood Count 9.2 10 Normal 4.0-10.0 [...] 36.0-66.0 Lymph % 33.2 % Normal 24.0-44.0 [place] % 6.5 % Normal 2.0-8.0 Eos % 2.4 % Normal 0.0-3.0 Baso % 0.8 % Normal 0.0-1.0 Immature Granulocyte % 0.5 % Normal 0-3.0 Nucleated Red Blood Cell % 0.0 % Normal 0-0 Neutrophils # 5.2 10 Normal 1.5-8.5 Lymph # 3.1 10 Normal 1.5-5.0 [place] # 0.6 10 Normal 0.0-0.8 Eos # 0.2 10 Normal 0.0-0.5 Baso # 0.1 10 Normal 0.0-0.2 Liver Profile 09/09/2020 [facility] ([facility]) [phone] Ast/Sgot 21 U/L Normal 7-37 Alt/SGPT 41 U/L Normal 12-78 Alkaline Phosphatase 107 U/L Normal 45-117 Bilirubin,Total 0.4 mg/dL Normal 0.2-1.0 Bilirubin,Direct 0.1 mg/dL Normal 0.0-0.2 Total Protein 6.9 GM/DL Normal 6.4-8.2 Albumin 3.9 GM/DL Normal 3.2-5.2 Albumin/Globulin Ratio 1.3 Normal Basic Metabolic Profile 09/09/2020 [facility] ([facility]) [phone] Glucose, Fasting 103 mg/dL High 70-100 Blood [...] mg/dL Normal 8.5-10.1 Laboratory test finding 09/09/2020 [id number] ([facility]) [phone] Lipase 119 U/L Normal 73-393 CMP 08/06/2020 [...] eGFR 135 # Calc 6 eGFR Non-Afr. [place] 116 # Calc 7 Lipid Panel 08/06/2020 [...] 2 Troponin I Reference Interva l for Sape LOCI: 99th Percentile= 0.00-0.045 ng/ml Risk Stratification: [...] Little GFR Left ESRD GFR <15 on BOTTOM BUFFER 4 Units are mL/min/1.73 m2 Chronic Kidney Disease Staging per NKF: Stage I & II GFR >=60 Normal to Mildly Decreased Stage III GFR 30-59 Moderately Decreased Stage IV GFR 15-29 Severely Decreased Stage V GFR <15 Very Little GFR Left ESRD GFR <15 on BOTTOM BUFFER 5 CHRONIC KIDNEY DISEASE STAGI NG PER [...] 7 CKD-EPI Procedures Date Code Description Status 09/17/2020 18527 Office/Outpatient Established Mo d MDM 30-39 Min Completed 08/06/2020 13302 Office/Outpatient Established Mo d MDM 30-39 Min Completed Medical Devices Description No Information Available Encounters Type Date Location Provider Dx Diagnosis Office Visit 09/17/2020 1:15p [place] [facility] French Patino M. D. I10 Essential (primary) hypertension R10.11 Right upper quadrant pain Office Visit 08/06/2020 8:45a [place] [facility] French Patino M. D. I10 Essential [...] 8:30 am - French Patino M.D. at [facility] Functional Status Description No Information Available Mental Status Description No Information Available Referrals Refer to Reason for Referral Status Appt Date [facility] Dermatology pearly lesion left eyelid- eval and rx Sent [address] [facility] [address] [place] [address] [phone] [facility] fatigue- r/o MALENA Sent [address] DR[address] Solano And Laura Rowley, Cynthia.N.PFroylan [id number] [place] [address] [phone]
--- OUTSIDE RECORDS SUMMARY | 2021-02-07 01:46 | CCD | Continuity of Care Document ---
Author Author Jake ADDISON N.P. Organization Unknown Address [address] [place] [address] Phone [phone] Care Team Providers Care Frame Table Operator Name Role Phone French [facility].D. [facility] [phone] Problems Description No Information Available Social History [...] lb BMI (Body Mass Index) 50.1 kg/m2 [place] Body Weight 166 lb Weight 158.306 kg BSA (Body Surface Area) 2.64 m2 11/06/2020 2:11pm BP Systolic 132 mmHg BP Diastolic 84 mmHg Heart Rate 78 /min O2 % BldC Oximetry 98 % Height 70 inches 5'10" Weight 349.00 lb BMI (Body Mass Index) 50.1 kg/m2 [place] Body Weight 166 lb Neck Circumference in inches 20 [place] Score 4 Weight 158.306 kg BSA (Body Surface Area) 2.64 m2 Results Description No Information Available Procedures Date Code Description Status 11/06/2020 51592 Office/Outpatient New Low [facility] 30 -44 Minutes Completed Medical Devices Description No Information Available Encounters Type Date Location Provider Dx Diagnosis Office Visit 11/06/2020 2:15p [facility] Pulmonary/Thoracic Madeline Addison N.P. R06.83 Snoring R40.0 [...] 3:30 pm - Rufino Armstrong MD at [facility] Pulmonary/Thoracic * 12/26/2020 7:45 pm - [facility] Sleep Lab at [facility]monary[facility]acic 12/03/2020 - Tiffanie Addison, N.Francis.* G47.33 [...] Tiffanie Addison F.NSana FATIGUE R/O MALENA Scheduled [facility]-Pulmonary [address] [place], [place] [id number] [phone]
--- OUTSIDE RECORDS SUMMARY | 2021-02-07 01:46 | CCD | Continuity of Care Document ---
Author Author Jake ADDISON N.P. Organization Unknown Address [address] [place] [address] Phone [phone] Care Team Providers Care Mortgage Processing Manager Name Role Phone French Patino M.D. [facility] [phone] Problems Description No Information Available Social History [...] lb BMI (Body Mass Index) 50.1 kg/m2 [place] Body Weight 166 lb Weight 158.306 kg BSA (Body Surface Area) 2.64 m2 11/06/2020 2:11pm BP Systolic 132 mmHg BP Diastolic 84 mmHg Heart Rate 78 /min O2 % BldC Oximetry 98 % Height 70 inches 5'10" Weight 349.00 lb BMI (Body Mass Index) 50.1 kg/m2 [place] Body Weight 166 lb Neck Circumference in inches 20 [place] Score 4 Weight 158.306 kg BSA (Body Surface Area) 2.64 m2 Results Description No Information Available Procedures Date Code Description Status 11/06/2020 21468 Office/Outpatient New Low [facility] 30 -44 Minutes Completed Medical Devices Description No Information Available Encounters Type Date Location Provider Dx Diagnosis Office Visit 11/06/2020 2:15p [facility] Pulmonary/Thoracic Madeline Addison N.P. R06.83 Snoring [...] 3:30 pm - Rufino Armstrong MD at [facility] Pulmonary/Thoracic * 12/26/2020 7:45 pm - [facility] Sleep Lab at [facility] 12/03/2020 - Tiffanie Addison, N.Francis.* [...] Tiffanie Addison F.NSana FATIGUE R/O MALENA Scheduled [facility] [address] [place], [place] [id number] [phone]
--- OUTSIDE RECORDS SUMMARY | 2021-02-07 01:47 | CCD ---
Author Author [facility] Organization [facility] Address Unknown Phone Unavailable Support Name Relationship Address Phone [facility] Next Of Kin [address] [facility] [address] [place] [address] [employer] Next Of Kin [address] [place] [address] [place] Next Of Kin [address] [place] [address] NICO KELLER [place] [address] [employer] Next Of Kin [address] [place] [address] [employer] Next Of Kin [address] [place] [address] TIN LULA PULIDO Next Of Kin [address] [place] [address] BROCK S[place]ARIA Next Of Kin [address] [facility] [address] [place] [address] [place] [address] [place] [address] Unavailable Care Team Providers Care Job Captain Name Role Phone Nguyen Carroll RENT AND MISCELLANEOUS REMITTANCE CLERK Unavailable Unavailable Carroll Nguyen RENT AND MISCELLANEOUS REMITTANCE CLERK Unavailable Unavailable Carroll Nguyen RENT AND MISCELLANEOUS REMITTANCE CLERK Unavailable Unavailable Carroll Nguyen RENT AND MISCELLANEOUS REMITTANCE CLERK Unavailable Unavailable Carroll Nguyen RENT AND MISCELLANEOUS REMITTANCE CLERK Unavailable Unavailable Carroll Nguyen RENT AND MISCELLANEOUS REMITTANCE CLERK Unavailable Unavailable Carroll, Nguyen RENT AND MISCELLANEOUS REMITTANCE CLERK Unavailable Unavailable Carroll Nguyen RENT AND MISCELLANEOUS REMITTANCE CLERK Unavailable Unavailable Carroll Nguyen RENT AND MISCELLANEOUS REMITTANCE CLERK Unavailable Unavailable Carroll Nguyen RENT AND MISCELLANEOUS REMITTANCE CLERK Unavailable Unavailable Carroll, Nguyen RENT AND MISCELLANEOUS REMITTANCE CLERK Unavailable Unavailable Carroll, Nguyen RENT AND MISCELLANEOUS REMITTANCE CLERK Unavailable Unavailable Carroll Nguyen RENT AND MISCELLANEOUS REMITTANCE CLERK Unavailable Unavailable LAROCK, J CHERELLE RENT AND MISCELLANEOUS REMITTANCE CLERK Unavailable Unavailable LAROCK, J CHERELLE RENT AND MISCELLANEOUS REMITTANCE CLERK Unavailable Unavailable LAROCK, J CHERELLE RENT AND MISCELLANEOUS REMITTANCE CLERK Unavailable Unavailable LAROCK, J CHERELLE RENT AND MISCELLANEOUS REMITTANCE CLERK Unavailable Unavailable LAROCK, J CHERELLE RENT AND MISCELLANEOUS REMITTANCE CLERK Unavailable Unavailable LAROCK, J CHERELLE RENT AND MISCELLANEOUS REMITTANCE CLERK Unavailable Unavailable LAROCK, J CHERELLE RENT AND MISCELLANEOUS REMITTANCE CLERK Unavailable Unavailable LAROCK, J CHERELLE RENT AND MISCELLANEOUS REMITTANCE CLERK Unavailable Unavailable LAROCK, J CHERELLE RENT AND MISCELLANEOUS REMITTANCE CLERK Unavailable Unavailable LAROCK, J CHERELLE RENT AND MISCELLANEOUS REMITTANCE CLERK Unavailable Unavailable LAROCK, J CHERELLE RENT AND MISCELLANEOUS REMITTANCE CLERK Unavailable Unavailable LAROCK, J CHERELLE RENT AND MISCELLANEOUS REMITTANCE CLERK Unavailable Unavailable LAROCK, J CHERELLE RENT AND MISCELLANEOUS REMITTANCE CLERK Unavailable Unavailable LAROCK, J CHERELLE RENT AND MISCELLANEOUS REMITTANCE CLERK Unavailable Unavailable LAROCK, J CHERELLE RENT AND MISCELLANEOUS REMITTANCE CLERK Unavailable Unavailable LAROCK, J CHERELLE RENT AND MISCELLANEOUS REMITTANCE CLERK Unavailable Unavailable LAROCK, J CHERELLE RENT AND MISCELLANEOUS REMITTANCE CLERK Unavailable Unavailable LAROCK, J CHERELLE RENT AND MISCELLANEOUS REMITTANCE CLERK Unavailable Unavailable LAROCK, J CHERELLE RENT AND MISCELLANEOUS REMITTANCE CLERK Unavailable Unavailable LAROCK, J CHERELLE RENT AND MISCELLANEOUS REMITTANCE CLERK Unavailable Unavailable LAROCK, J CHERELLE RENT AND MISCELLANEOUS REMITTANCE CLERK Unavailable Unavailable LAROCK, J CHERELLE RENT AND MISCELLANEOUS REMITTANCE CLERK Unavailable Unavailable JAYE, MARTHA TALA TRAIN CLERK-C Unavailable Unavailable JAYE, MARTHA TALA TRAIN CLERK-C Unavailable Unavailable JAYE, MARTHA TALA TRAIN CLERK-C Unavailable Unavailable JAYE, MARTHA TALA TRAIN CLERK-C Unavailable Unavailable JAYE, MARTHA TALA TRAIN CLERK-C Unavailable Unavailable JAYE, MARTHA TALA TRAIN CLERK-C Unavailable Unavailable JAYE, MARTHA TALA TRAIN CLERK-C Unavailable Unavailable JAYE, MARTHA TALA TRAIN CLERK-C Unavailable Unavailable JAYE, MARTHA TALA TRAIN CLERK-C Unavailable Unavailable JAYE, MARTHA TALA TRAIN CLERK-C Unavailable Unavailable JAYE, MARTHA TALA TRAIN CLERK-C Unavailable Unavailable JAYE, MARTHA TALA TRAIN CLERK-C Unavailable Unavailable JAYE, MARTHA TALA TRAIN CLERK-C Unavailable Unavailable JAYE, MARTHA TALA TRAIN CLERK-C Unavailable Unavailable JAYE, MARTHA TALA TRAIN CLERK-C Unavailable Unavailable JAYE, MARTHA TALA TRAIN CLERK-C Unavailable Unavailable JAYE, MARTHA TALA TRAIN CLERK-C Unavailable Unavailable ANTECOL, Sarah POZO MD Unavailable Unavailable ANTECOL, Sarah POZO MD Unavailable Unavailable ANTECOL, Sarah POZO MD Unavailable Unavailable ANTECOL, Sarah POZO MD Unavailable Unavailable ANTECOL, Sarah POZO MD Unavailable Unavailable ANTECOL, Sarah POZO MD Unavailable Unavailable ANTECOL, Sarah POZO MD Unavailable Unavailable ANTECOL, Sarah POZO MD Unavailable Unavailable ANTECOL, Sarah POZO MD Unavailable Unavailable ANTECOL, Sarah POZO MD Unavailable Unavailable ANTECOL, Sarah POZO MD Unavailable Unavailable ANTECOL, Sarah POZO MD Unavailable Unavailable ANTECOL, Sarah POZO MD Unavailable Unavailable ANTECOL, Sarah POZO MD Unavailable Unavailable ANTECOL, Sarah POZO MD Unavailable Unavailable ANTECOL, Sarah POZO MD Unavailable Unavailable ANTECOL, Sarah POZO MD Unavailable Unavailable ANTECOL, Sarah POZO MD Unavailable Unavailable ANTECOL, Sarah POZO MD Unavailable Unavailable ANTECOL, Sarah POZO MD Unavailable Unavailable ANTECOL, Sarah POZO MD Unavailable Unavailable ANTECOL, Sarah POZO MD Unavailable Unavailable ANTECOL, Sarah POZO MD Unavailable Unavailable ANTECOL, Sarah POZO MD Unavailable Unavailable ANTECOL, Sarah POZO MD Unavailable Unavailable ANTECOL, Sarah POZO MD Unavailable Unavailable ANTECOL, Sarah POZO MD Unavailable Unavailable ANTECOL, Sarah POZO MD Unavailable Unavailable ANTECOL, Sarah POZO MD Unavailable Unavailable ANTECOL, Sarah POZO MD Unavailable Unavailable ANTECOL, Sarah POZO MD Unavailable Unavailable ANTECOL, Sarah POZO MD Unavailable Unavailable ANTECOL, Sarah POZO MD Unavailable Unavailable ANTECOL, Sarah POZO MD Unavailable Unavailable ANTECOL, Sarah POZO MD Unavailable Unavailable ANTECOL, Sarah POZO MD Unavailable Unavailable ANTECOL, Sarah POZO MD Unavailable Unavailable ANTECOL, Sarah POZO MD Unavailable Unavailable ANTECOL, Sarah POZO MD Unavailable Unavailable ANTECOL, Sarah POZO MD Unavailable Unavailable ANTECOL, Sarah POZO MD Unavailable Unavailable ANTECOL, Sarah POZO MD Unavailable Unavailable ANTECOL, Sarah POZO MD Unavailable Unavailable ANTECOL, Sarah POZO MD Unavailable Unavailable ANTECOL, Sarah POZO MD Unavailable Unavailable ANTECOL, Sarah POZO MD Unavailable Unavailable ANTECOL, Sarah POZO MD Unavailable Unavailable ANTECOL, Sarah POZO MD Unavailable Unavailable ANTECOL, Sarah POZO MD Unavailable Unavailable ANTECOL, Sarah POZO MD Unavailable Unavailable ANTECOL, Sarah POZO MD Unavailable Unavailable ANTECOL, Sarah POZO MD Unavailable Unavailable ANTECOL, Sarah POZO MD Unavailable Unavailable ANTECOL, Sarah POZO MD Unavailable Unavailable ANTECOL, Sarah POZO MD Unavailable Unavailable Sarah DEL ANGEL MD Unavailable Unavailable Sarah DEL ANGEL MD Unavailable Unavailable Sarah DEL ANGEL MD Unavailable Unavailable Sarah DEL ANGEL MD Unavailable Unavailable Sarah DEL ANGEL MD Unavailable Unavailable Sarah DEL ANGEL MD Unavailable Unavailable Sarah DEL ANGEL MD Unavailable Unavailable Sarah DEL ANGEL MD Unavailable Unavailable Sarah DEL ANGEL MD Unavailable Unavailable Sarah DEL ANGEL MD Unavailable Unavailable Sarah DEL ANGEL MD Unavailable Unavailable Sarah DEL ANGEL MD Unavailable Unavailable Sarah DEL ANGEL MD Unavailable Unavailable Sarah DEL ANGEL MD Unavailable Unavailable Sarah DEL ANGEL MD Unavailable Unavailable Sarah DEL ANGEL MD Unavailable Unavailable Sarah DEL ANGEL MD Unavailable Unavailable Sarah DEL ANGEL MD Unavailable Unavailable Sarah DEL ANGEL MD Unavailable Unavailable Sarah DEL ANGEL MD Unavailable Unavailable Sarah DEL ANGEL MD Unavailable Unavailable Sarah DEL ANGEL MD Unavailable Unavailable BEAN H SYLVIA STEIN Unavailable Unavailable BEAN H SYLVIA STEIN Unavailable Unavailable BEAN H SYLVIA STEIN Unavailable Unavailable BEAN H SYLVIA STEIN Unavailable Unavailable Sarah DEL ANGEL MD Unavailable Unavailable Sarah DEL ANGEL MD Unavailable Unavailable BEAN H SYLVIA STEIN Unavailable Unavailable BEAN H SYLVIA STEIN Unavailable Unavailable BEAN H SYLVIA STEIN Unavailable Unavailable BEAN H SYLVIA STEIN Unavailable Unavailable BEAN H SYLVIA STEIN Unavailable Unavailable BEAN H SYLVIA STEIN Unavailable Unavailable BEAN H SYLVIA STEIN Unavailable Unavailable BEAN H SYLVIA STEIN Unavailable Unavailable BEAN H SYLVIA STEIN Unavailable Unavailable BEAN H SYLVIA STEIN Unavailable Unavailable BEAN H SYLVIA STEIN Unavailable Unavailable BEAN H SYLVIA STEIN Unavailable Unavailable BEAN, H SYLVIA STEIN Unavailable Unavailable BEAN H SYLVIA STEIN Unavailable Unavailable BEAN H SYLVIA STEIN Unavailable Unavailable Sarah DEL ANGEL MD Unavailable Unavailable Sarah DEL ANGEL MD Unavailable Unavailable Sarah DEL ANGEL MD Unavailable Unavailable Sarah DEL ANGEL MD Unavailable Unavailable Sarah DEL ANGEL MD Unavailable Unavailable Sarah DEL ANGEL MD Unavailable Unavailable Sarah DEL ANGEL MD Unavailable Unavailable Sarah DEL ANGEL MD Unavailable Unavailable Sarah DEL ANGEL MD Unavailable Unavailable Sarah DEL ANGEL MD Unavailable Unavailable Sarah DEL ANGEL MD Unavailable Unavailable Sarah DEL ANGEL MD Unavailable Unavailable Sarah DEL ANGEL MD Unavailable Unavailable Sarah DEL ANGEL MD Unavailable Unavailable Sarah DEL ANGEL MD Unavailable Unavailable Sarah DEL ANGEL MD Unavailable Unavailable Sarah DEL ANGEL MD Unavailable Unavailable Sarah DEL ANGEL MD Unavailable Unavailable Sarah DEL ANGEL MD Unavailable Unavailable Sarah DEL ANGEL MD Unavailable Unavailable Sarah DEL ANGEL MD Unavailable Unavailable Sarah DEL ANGEL MD Unavailable Unavailable Sarah DEL ANGEL MD Unavailable Unavailable Sarah DEL ANGEL MD Unavailable Unavailable Sarah DEL ANGEL MD Unavailable Unavailable Sarah DEL ANGEL MD Unavailable Unavailable Sarah DEL ANGEL MD Unavailable Unavailable Sarah DEL ANGEL MD Unavailable Unavailable Sarah DEL ANGEL MD Unavailable Unavailable Sarah DEL ANGEL MD Unavailable Unavailable Sarah DEL ANGEL MD Unavailable Unavailable Sarah DEL ANGEL MD Unavailable Unavailable Sarah DEL ANGEL MD Unavailable Unavailable Sarah DEL ANGEL MD Unavailable Unavailable Sarah DEL ANGEL MD Unavailable Unavailable Sarah DEL ANGEL MD Unavailable Unavailable Caryn M Christopher PA-C Unavailable Unavailable Rubin M Christopher PA-C Unavailable Unavailable Caryn M Christopher PA-C Unavailable Unavailable Caryn M Christopher PA-C Unavailable Unavailable Caryn M Christopher PA-C Unavailable Unavailable Caryn M Christopher PA-C Unavailable Unavailable Caryn M Christopher PA-C Unavailable Unavailable Rubin M Christopher PA-C Unavailable Unavailable Rubin, M Christopher PA-C Unavailable Unavailable Rubin, M Christopher PA-C Unavailable Unavailable Rubin, M Christopher PA-C Unavailable Unavailable Rubin, M Christopher PA-C Unavailable Unavailable Rubin, M Christopher PA-C Unavailable Unavailable Rubin, M Christopher PA-C Unavailable Unavailable Rubin, M Christopher PA-C Unavailable Unavailable Rubin, M Christopher PA-C Unavailable Unavailable Rubin, M Christopher PA-C Unavailable Unavailable Rubin, M Christopher PA-C Unavailable Unavailable Rubin, M Christopher PA-C Unavailable Unavailable Rubin, M Christopher PA-C Unavailable Unavailable Rubin, M Christopher PA-C Unavailable Unavailable Rubin, M Christopher PA-C Unavailable Unavailable Rubin, M Christopher PA-C Unavailable Unavailable Rubin, M Christopher PA-C Unavailable Unavailable Rubin, M Christopher PA-C Unavailable Unavailable Rubin, M Christopher PA-C Unavailable Unavailable Re-disclosure Warning The records that you are about to access may contain information from federally-assisted alcohol or drug abuse programs. If such information is present, then the following federally mandated warning applies: This information has been disclosed to you from records protected by federal confidentiality rules (42 CFR part 2). The federal rules prohibit you from making any further disclosure of this information unless further disclosure is expressly permitted by the written consent of the person to whom it pertains or as otherwise permitted by 42 CFR part 2. A general authorization for the release of medical or other information is NOT sufficient for this purpose. The Federal rules restrict any use of the information to criminally investigate or prosecute any alcohol or drug abuse patient.The records that you are about to access may contain highly sensitive health information, the redisclosure of which is protected by Article 27-F of the [facility] Public Health law. If you continue you may have access to information: Regarding HIV / AIDS; Provided by facilities licensed or operated by the [facility] Office of Mental Health; or Provided by the [facility] Office for People With Developmental Disabilities. If such information is present, then the following [facility] mandated warning applies: This information has been disclosed to you from confidential records which are protected by state law. State law prohibits you from making any further disclosure of this information without the specific written consent of the person to whom it pertains, or as otherwise permitted by law. Any unauthorized further disclosure in violation of state law may result in a fine or intermediate sentence or both. A general authorization for the release of medical or other information is NOT sufficient authorization for further disc losure. Family History Family Member Name Family Member Gender Family Member Status Date o f Status Description Data Source(s) Unknown Unknown Problem [facility] ([facility]) mother,siblings x 5 Encounters Encounter Providers Location Date Indications Data Source(s ) Outpatient Attender: SÁNCHEZ HAYES MD Main Office 01/08/2021 08:00:00 AM EDT [facility] ([facility]) Outpatient Attender: SYLVIA DEL ANGEL MD [place] Office 04/2020 01:45:00 PM EDT [facility] ([facility] Outpatient Attender: TALA [place] 12/03/2020 03:15:00 PM EDT [facility] ([facility] Outpatient [facility] [address] 11/07/2020 12:00:00 AM EDT eCW1 ([facility]) Outpatient Attender: TALA Row[place] 11/06/2020 02:15:00 PM EDT [facility] ([facility] Outpatient Attender: SYLVIA DEL ANGEL MD [place] Office 01:15:00 PM EDT [facility] ([facility] Outpatient Attender: Telly Rubin PA-C 09/08/2020 06:51:16 PM EDT - 09/08/2020 07:07:09 PM EDT [facility] ([facility]) Outpatient Attender: CHERELLE DUMONT NP 08/06 07:30:42 PM EDT - 08/17/2020 08:05:15 PM EDT [facility] ([facility] ) Outpatient Attender: SYLVIA DEL ANGEL MD [place] Office 03/2020 08:45:00 AM EDT [facility] ([facility] Outpatient Attender: SYLVIA DEL ANGEL MD [facility] 07:45:00 AM EST [facility] ([facility] Outpatient Attender: Nguyen lopes 12/26/2019 06:00:00 PM EDT [facility] ([facility]) Medications Medication Brand Name Start Date Product Form Dose Route Admi nistrative Instructions Pharmacy Instructions Status Indications Reaction Description Data Source(s) Hydrochlorothiazide 12.5 MG / Losartan Potassium 100 M G Oral Tablet Losartan Potassium/Hydrochlorothiazide 01/07/2021 12:00:00 AM EDT ORAL active [facility] ([facility]) Ascorbic Acid 500 MG Oral Tablet Vitamin C 01/07/2021 12:00:00 AM EDT ORAL active [facility] ([facility]) Acetaminophen 250 MG / Aspirin 250 MG / Caffeine 65 MG Oral Tablet Iduyknx-Cblbbjtciojxb-Anyfqthi 01/07/2021 12:00:00 AM EDT ORAL active [facility] ([facility]) Amlodipine 10 MG Oral Tablet Amlodipine Besylate 01/07/2021 12:00:00 AM EDT ORAL active [facility] ([facility]) Hydrochlorothiazide 12.5 MG / Losartan Potassium 100 M G Oral Tablet Losartan Potassium/Hydrochlorothiazide 09/17/2020 12:00:00 AM EDT ORAL active [facility] ([facility] Insurance Providers Payer name Policy type / Coverage type Policy ID Covered libertarian ID Covered libertarian's relationship to ta Policy At Plan Information [employer]. [id number] Self [id number] [facility] [id number] SP [id number] [facility] [id number] SP [id number] [facility] [id number] SP [id number] [facility] [employer] [id number] Self [id number] [facility] [employer] [id number] Self [id number] [employer] [id number] SP [id number] [facility] Commercial [id number] Self [id number] [facility] [employer] [id number] Self [id number] [employer] [place] [employer] [id number] SP [id number] [facility] [place] [employer] [id number] Self [facility] [facility] O [id number] S [id number] [employer]) O UNAVAILABLE [id number] S UNAVAILABLE [employer] O [id number] S [id number] SELF PAY UNAVAILABLE SP UNAVAILA BLE [facility] [id number] SP [id number] Problems, Conditions, and Diagnoses Code Display Name Description Problem Type Effective Dates Data Source(s) R07.9 Chest pain Chest pain Problem 01/08/2021 12:00:00 AM ED T [facility] ([facility]) I10 Essential hypertension Essential hypertension Problem 01/08/2021 12:00:00 AM EDT [facility] ([facility]) E66.01 Morbid obesity Morbid obesity Problem 01/08/2021 12:00: 00 AM EDT [facility] ([facility]) Z71.3 Dietary management surveillance Dietary management palma veillance Problem 01/08/2021 12:00:00 AM EDT [facility] ([facility]) [id number] Hyperglycemia Hyperglycemia Problem 02/02/2020 12:00:00 AM EST [facility] ([facility] Surgeries/Procedures Procedure Description Date Indications Data Source(s) ECG ROUTINE ECG W/LEAST 12 LDS W/I&R 01/08/2021 12:00: 00 AM EDT [facility] ([facility]) OFFICE OUTPATIENT NEW 45 MINUTES 01/08/2021 12:00:00 A M EDT [facility] ([facility]) OFFICE OUTPATIENT VISIT 25 MINUTES 01/07/2021 12:00:00 AM EDT [facility] ([facility] OFFICE OUTPATIENT VISIT 15 MINUTES 12/03/2020 12:00:00 AM EDT [facility] ([facility] ) OFFICE OUTPATIENT NEW 30 MINUTES 11/06/2020 12:00:00 A M EDT [facility] ([facility], ) OFFICE OUTPATIENT VISIT 25 MINUTES 09/17/2020 12:00:00 AM EDT [facility] ([facility] OFFICE OUTPATIENT VISIT 25 MINUTES 08/06/2020 12:00:00 AM EDT [facility] ([facility] Results ID Date Data Source [id number] 01/31/2021 04:30:00 PM EST [facility] Name Value Range Interpretation Code Description Data Liz rce(s) Supporting Document(s) SARS coronavirus 2 RNA [Presence] in Res piratory specimen by ARIK with probe detection Not detected [facility] This lab was ordered by [employer] and re ported by [employer]. ID Date Data Source [id number] 01/31/2021 08:30:00 AM EST [facility] Name Value Range Interpretation Code Description Data Liz rce(s) Supporting Document(s) SARS-COV-2 RNA RESP QL ARIK+PROBE Not detected [facility] This lab was ordered by [email or web address] Employee Cov id and reported by [employer] [place] [facility]. ID Date Data Source [id number] 01/24/2021 04:35:00 PM EST [facility] Name Value Range Interpretation Code Description Data Liz rce(s) Supporting Document(s) SARS coronavirus 2 RNA [Presence] in Res piratory specimen by ARIK with probe detection Not detected [facility] This lab was ordered by [email or web address] and re ported by [email or web address]. ID Date Data Source [id number] 01/24/2021 08:35:00 AM EST [facility] Name Value Range Interpretation Code Description Data Liz rce(s) Supporting Document(s) SARS-COV-2 RNA RESP QL ARIK+PROBE Not detected [facility] This lab was ordered by [email or web address] Employee Cov id and reported by [employer] [place]. ID Date Data Source [id number] 01/25/2021 05:50:00 PM EST [facility] Name Value Range Interpretation Code Description Data Liz rce(s) Supporting Document(s) [id number] NOT DETECTED [facility] A Not Detected result means that SARS-Co V-2 RNA was notpresent in the specimen above the limit of detection.A Not Detected result does not rule out the possibilityof COVID-19 and should not be used as the sole basis fortreatment or patient management decisions. If COVID-19is still suspected, based on exposure history togetherwith other clinical findings, re-testing should beconsidered in the context of clinical observations andepidemiological data for patient management decisions.Test Method: Nucleic Acid Amplification Test includingreverse library services coordinator polymerase chain reaction (RT-PCR)and transcr iption mediated amplification (TMA). The testmethod meets the [place] Centers for Disease Control andprevention (CDC) pre departure and arrival requirementfor viral test for COVID-19 dated April 04, 2020.Testing requirements for traveling may change with time.The patient is responsible for determining the testrequirements for each nation while they are traveling.This test has been authorized by the FDA under anEmergency Use Authorization (EUA) for use by authorizedlaboratories.Please review the "Fact Sheets" and FDA authorizedlabeling available for health care providers andpatients using the following websites:[email or web address]/home/Covid-19/[email or web address]/fact-sheet. [email or web address]://www.[employer]/home/Covid-19/Patients/[facility]/fact-sheet. htmlDue to the current public health emergency, [facility] is accepting samples from appropriateclinical sources collected using wide variety ofswabs and transport media for COVID-19. Not detectedtest results derived from specim ens received in non-commercially manufactured viral collection kits or thosenot yet authorized by FDA for COVID-19 testing should becautiously evaluated and take extra precautions such asadditional clinical monitoring, including collectionof an additional specimen.Additional information about COVID-19 can be foundat the [employer] website:[email or web address]. ID Date Data Source [id number] 01/20/2021 05:35:00 PM EST [facility] Name Value Range Interpretation Code Description Data Liz rce(s) Supporting Document(s) SARS coronavirus 2 RNA [Presence] in Res piratory specimen by ARIK with probe detection Not detected [facility] This lab was ordered by [facility] and re ported by [facility]. ID Date Data Source [id number] 01/20/2021 09:35:00 AM EST [facility] Name Value Range Interpretation Code Description Data Liz rce(s) Supporting Document(s) SARS-COV-2 RNA RESP QL ARIK+PROBE Not detected [facility] This lab was ordered by [facility] Employee Cov id and reported by [employer] [facility]. ID Date Data Source [id number] 01/21/2021 10:12:00 AM EST [facility] Name Value Range Interpretation Code Description Data Liz rce(s) Supporting Document(s) 37130-5 NOT DETECTED [facility] A Not Detected result means that SARS-Co V-2 RNA was notpresent in the specimen above the limit of detection.A Not Detected result does not rule out the possibilityof COVID-19 and should not be used as the sole basis fortreatment or patient management decisions. If COVID-19is still suspected, based on exposure history togetherwith other clinical findings, re-testing should beconsidered in the context of clinical observations andepidemiological data for patient management decisions.Test Method: Nucleic Acid Amplification Test includingreverse library services coordinator polymerase chain reaction (RT-PCR)and transcr iption mediated amplification (TMA). The testmethod meets the [place] Centers for Disease Control andprevention (CDC) pre departure and arrival requirementfor viral test for COVID-19 dated April 04, 2020.Testing requirements for traveling may change with time.The patient is responsible for determining the testrequirements for each nation while they are traveling.This test has been authorized by the FDA under anEmergency Use Authorization (EUA) for use by authorizedlaboratories.Please review the "Fact Sheets" and FDA authorizedlabeling available for health care providers andpatients using the following websites:https://www.[employer].com/home/Covid-19/HCP/[facility]/fact-sheet. htmlhttps://www.[employer].com/home/Covid-19/Patients/[facility]/fact-sheet. htmlDue to the current public health emergency, [facility] is accepting samples from appropriateclinical sources collected using wide variety ofswabs and transport media for COVID-19. Not detectedtest results derived from specim ens received in non-commercially manufactured viral collection kits or thosenot yet authorized by FDA for COVID-19 testing should becautiously evaluated and take extra precautions such asadditional clinical monitoring, including collectionof an additional specimen.Additional information about COVID-19 can be foundat the [employer] website:www.[facility].com/Covid19. ID Date Data Source [id number] 01/13/2021 12:00:00 AM EST [facility] Name Value Range Interpretation Code Description Data Liz rce(s) Supporting Document(s) SARS-CoV2 Rapid Antigen Negative [facility] This lab was ordered by [facility] and reported by [facility]. ID Date Data Source [id number] 01/08/2021 04:45:00 PM EDT [facility] Name Value Range Interpretation Code Description Data Liz rce(s) Supporting Document(s) SARS coronavirus 2 RNA [Presence] in Res piratory specimen by ARIK with probe detection Not detected [facility] This lab was ordered by [facility] and re ported by [facility]. ID Date Data Source [id number] 01/09/2021 12:54:00 PM EDT [facility] Name Value Range Interpretation Code Description Data Liz rce(s) Supporting Document(s) 31607-1 NOT DETECTED [facility] A Not Detected result means that SARS-Co V-2 RNA was notpresent in the specimen above the limit of detection.A Not Detected result does not rule out the possibilityof COVID-19 and should not be used as the sole basis fortreatment or patient management decisions. If COVID-19is still suspected, based on exposure history togetherwith other clinical findings, re-testing should beconsidered in the context of clinical observations andepidemiological data for patient management decisions.Test Method: Nucleic Acid Amplification Test includingreverse library services coordinator polymerase chain reaction (RT-PCR)and transcr iption mediated amplification (TMA). The testmethod meets the [place] Centers for Disease Control andprevention (CDC) pre departure and arrival requirementfor viral test for COVID-19 dated April 04, 2020.Testing requirements for traveling may change with time.The patient is responsible for determining the testrequirements for each nation while they are traveling.This test has been authorized by the FDA under anEmergency Use Authorization (EUA) for use by authorizedlaboratories.Please review the "Fact Sheets" and FDA authorizedlabeling available for health care providers andpatients using the following websites:https://www.[employer]/home/Covid-19/HCP/NAAT/fact-xfgpb9wfzv s://www.[employer]/home/Covid-19/Patients/NAAT/fact-btypn9Brb to the current public health emergency, [facility] is accepting samples from appropriateclinical sources collected using wide variety ofswabs and transport media for COVID-19. Not detectedtest results derived from specimens received in non-commercially manufactured viral collection kits or thosenot yet authorized by FDA for COVID-19 testing should becautiously evaluated and take extra precautions such asadditional clinical monitoring, including collectionof an additional specimen.Additional information about COVID-19 can be foundat the [employer] website:www.[facility].[employer]/Covid19. ID Date Data Source [id number] 01/08/2021 09:45:00 AM EDT [facility] Name Value Range Interpretation Code Description Data Liz rce(s) Supporting Document(s) SARS-COV-2 RNA RESP QL ARIK+PROBE Not detected [facility] This lab was ordered by [facility] Employee Cov id and reported by [employer]. ID Date Data Source [id number] 01/07/2021 01:58:00 PM EDT [facility] Name Value Range Interpretation Code Description Data Liz rce(s) Supporting Document(s) Amylase [Enzymatic activity/volume] in Serum or Plasma 50 U/L 31- 110 [facility] ([facility] Lipoprotein lipase [Enzymatic activity/volume] in Serum or Plasm a 32 U/L 13-78 [facility] ([facility] ) ID Date Data Source [id number] 01/07/2021 01:57:00 PM EDT [facility] ([facility] Name Value Range Interpretation Code Description Data Liz rce(s) Supporting Document(s) WBC 6.9 10E3/uL 4.1-10.9 [facility] ([facility] NORMAL RANGES Age WBC RBC HGB HCT [...] HCT IS 5% LESS SOURCE FOR DATA: Brammo 1800 OPERATION MANUAL( AUTOMATED BLOOD COUNTS AND [...] Normal 80 and above >32 mL/min Normal RBC 4.90 10E6/uL 4.20-6.30 [facility] ([facility] NORMAL RANGES Age WBC RBC HGB HCT [...] HCT IS 5% LESS SOURCE FOR DATA: Brammo 1800 OPERATION MANUAL( AUTOMATED BLOOD COUNTS AND [...] Normal 80 and above >32 mL/min Normal HGB 14.2 g/dL 12.0-18.0 [facility] ([facility] NORMAL RANGES Age WBC RBC HGB HCT [...] HCT IS 5% LESS SOURCE FOR DATA: Brammo 1800 OPERATION MANUAL( AUTOMATED BLOOD COUNTS AND [...] Normal 80 and above >32 mL/min Normal MCV 85.5 fL 80.0-97.0 [facility] ([facility] NORMAL RANGES Age WBC RBC HGB HCT [...] HCT IS 5% LESS SOURCE FOR DATA: CHARIS DYN 1800 OPERATION MANUAL( AUTOMATED BLOOD COUNTS AND [...] Normal 80 and above >32 mL/min Normal HCT 41.9 % 37.0-51.0 [facility] ([facility] NORMAL RANGES Age WBC RBC HGB HCT [...] HCT IS 5% LESS SOURCE FOR DATA: Brammo 1800 OPERATION MANUAL( AUTOMATED BLOOD COUNTS AND [...] Normal 80 and above >32 mL/min Normal MCHC 33.9 g/dL 31.0-36.0 [facility] NORMAL RANGES Age WBC RBC HGB HCT [...] HCT IS 5% LESS SOURCE FOR DATA: Brammo 1800 OPERATION MANUAL( AUTOMATED BLOOD COUNTS AND [...] Normal 80 and above >32 mL/min Normal MCH 29.0 pg 26.0-32.0 [facility] ([facility] NORMAL RANGES Age WBC RBC HGB HCT [...] HCT IS 5% LESS SOURCE FOR DATA: Brammo 1800 OPERATION MANUAL( AUTOMATED BLOOD COUNTS AND [...] Normal 80 and above >32 mL/min Normal RDW-CV 12.6 % 11.5-14.5 [facility] NORMAL RANGES Age WBC RBC HGB HCT [...] HCT IS 5% LESS SOURCE FOR DATA: Brammo 1800 OPERATION MANUAL( AUTOMATED BLOOD COUNTS AND [...] Normal 80 and above >32 mL/min Normal PLT 296 10E3/uL 140-440 [facility] ([facility] NORMAL RANGES Age WBC RBC HGB HCT [...] HCT IS 5% LESS SOURCE FOR DATA: Brammo 1800 OPERATION MANUAL( AUTOMATED BLOOD COUNTS AND [...] Normal 80 and above >32 mL/min Normal Lym% 26.2 % 10.0-58.5 [facility] NORMAL RANGES Age WBC RBC HGB HCT [...] HCT IS 5% LESS SOURCE FOR DATA: Brammo 1800 OPERATION MANUAL( AUTOMATED BLOOD COUNTS AND [...] Normal 80 and above >32 mL/min Normal Neut% 65.1 % 37.0-92.0 [facility] ([facility] NORMAL RANGES Age WBC RBC HGB HCT [...] HCT IS 5% LESS SOURCE FOR DATA: Brammo 1800 OPERATION MANUAL( AUTOMATED BLOOD COUNTS AND [...] Normal 80 and above >32 mL/min Normal Lym# 1.8 10E3/uL 0.6-4.1 [facility] ([facility] NORMAL RANGES Age WBC RBC HGB HCT [...] HCT IS 5% LESS SOURCE FOR DATA: Brammo 1800 OPERATION MANUAL( AUTOMATED BLOOD COUNTS AND [...] Normal 80 and above >32 mL/min Normal MXD% 8.7 % 0.1-24.0 [facility] ([facility] NORMAL RANGES Age WBC RBC HGB HCT [...] HCT IS 5% LESS SOURCE FOR DATA: CHARIS DYN 1800 OPERATION MANUAL( AUTOMATED BLOOD COUNTS AND [...] Normal 80 and above >32 mL/min Normal Neut# 4.5 % 2.0-7.8 [facility] ([facility] NORMAL RANGES Age WBC RBC HGB HCT [...] HCT IS 5% LESS SOURCE FOR DATA: [employer] DYN 1800 OPERATION MANUAL( AUTOMATED BLOOD COUNTS AND [...] Normal 80 and above >32 mL/min Normal MPV 11.4 fL 9.0-13.0 [facility] ([facility] NORMAL RANGES Age WBC RBC HGB HCT [...] HCT IS 5% LESS SOURCE FOR DATA: Brammo 1800 OPERATION MANUAL( AUTOMATED BLOOD COUNTS AND [...] Normal 80 and above >32 mL/min Normal MXD# 0.6 10E3/uL 0.0-1.8 [facility] ([facility] NORMAL RANGES Age WBC RBC HGB HCT [...] HCT IS 5% LESS SOURCE FOR DATA: Brammo 1800 OPERATION MANUAL( AUTOMATED BLOOD COUNTS AND [...] Normal 80 and above >32 mL/min Normal ID Date Data Source [id number] 01/07/2021 01:57:00 PM EDT [facility] ([facility] Name Value Range Interpretation Code Description Data Liz rce(s) Supporting Document(s) BUN 15 mg/dL 8- [facility] ([facility] NORMAL RANGES Age WBC RBC HGB HCT [...] HCT IS 5% LESS SOURCE FOR DATA: Brammo 1800 OPERATION MANUAL( AUTOMATED BLOOD COUNTS AND [...] Normal 80 and above >32 mL/min Normal Glu 88 mg/dL 70-110 [facility] ([facility] NORMAL RANGES Age WBC RBC HGB HCT [...] HCT IS 5% LESS SOURCE FOR DATA: Brammo 1800 OPERATION MANUAL( AUTOMATED BLOOD COUNTS AND [...] Normal 80 and above >32 mL/min Normal Creat 0.8 mg/dL 0.7-1.2 [facility] ([facility] NORMAL RANGES Age WBC RBC HGB HCT [...] HCT IS 5% LESS SOURCE FOR DATA: Brammo 1800 OPERATION MANUAL( AUTOMATED BLOOD COUNTS AND [...] Normal 80 and above >32 mL/min Normal BUN/Creatinine Ratio 19.7 [facility] ([facility] NORMAL RANGES Age WBC RBC HGB HCT [...] HCT IS 5% LESS SOURCE FOR DATA: Brammo 1800 OPERATION MANUAL( AUTOMATED BLOOD COUNTS AND [...] Normal 80 and above >32 mL/min Normal Na 136 mmol/L 136-145 [facility] ([facility] NORMAL RANGES Age WBC RBC HGB HCT [...] HCT IS 5% LESS SOURCE FOR DATA: Brammo 1800 OPERATION MANUAL( AUTOMATED BLOOD COUNTS AND [...] Normal 80 and above >32 mL/min Normal CL 101.7 mmol/L 98.0-107.0 [facility] ([facility] NORMAL RANGES Age WBC RBC HGB HCT [...] HCT IS 5% LESS SOURCE FOR DATA: Brammo 1800 OPERATION MANUAL( AUTOMATED BLOOD COUNTS AND [...] Normal 80 and above >32 mL/min Normal K 4.2 mmol/L 3.5-5.1 [facility] NORMAL RANGES Age WBC RBC HGB HCT [...] HCT IS 5% LESS SOURCE FOR DATA: Brammo 1800 OPERATION MANUAL( AUTOMATED BLOOD COUNTS AND [...] Normal 80 and above >32 mL/min Normal Co2 22.2 mmol/L 22.0-29.0 [facility] ([facility] NORMAL RANGES Age WBC RBC HGB HCT [...] HCT IS 5% LESS SOURCE FOR DATA: Brammo 1800 OPERATION MANUAL( AUTOMATED BLOOD COUNTS AND [...] Normal 80 and above >32 mL/min Normal Alb 4.3 g/dL 3.5-5.2 [facility] ([facility] NORMAL RANGES Age WBC RBC HGB HCT [...] HCT IS 5% LESS SOURCE FOR DATA: Brammo 1800 OPERATION MANUAL( AUTOMATED BLOOD COUNTS AND [...] Normal 80 and above >32 mL/min Normal CA 9.1 mg/dL 8.6-10.2 [facility] NORMAL RANGES Age WBC RBC HGB HCT [...] HCT IS 5% LESS SOURCE FOR DATA: Brammo 1800 OPERATION MANUAL( AUTOMATED BLOOD COUNTS AND [...] Normal 80 and above >32 mL/min Normal TP 6.2 g/dL 6.6-8.7 Below low normal [facility] ( [facility] NORMAL RANGES Age WBC RBC HGB HCT [...] HCT IS 5% LESS SOURCE FOR DATA: Brammo 1800 OPERATION MANUAL( AUTOMATED BLOOD COUNTS AND [...] Normal 80 and above >32 mL/min Normal A/G Ratio 2.2 [facility] ([facility] NORMAL RANGES Age WBC RBC HGB HCT [...] HCT IS 5% LESS SOURCE FOR DATA: Brammo 1800 OPERATION MANUAL( AUTOMATED BLOOD COUNTS AND [...] Normal 80 and above >32 mL/min Normal Alp 106.7 U/L 40-129 [facility] ([facility] NORMAL RANGES Age WBC RBC HGB HCT [...] HCT IS 5% LESS SOURCE FOR DATA: [employer] DYN 1800 OPERATION MANUAL( AUTOMATED BLOOD COUNTS AND [...] Normal 80 and above >32 mL/min Normal Globulin 2.0 CALC [facility] ([facility] NORMAL RANGES Age WBC RBC HGB HCT [...] HCT IS 5% LESS SOURCE FOR DATA: Brammo 1800 OPERATION MANUAL( AUTOMATED BLOOD COUNTS AND [...] Normal 80 and above >32 mL/min Normal Ast (Sgot) 21 U/L 0-40 [facility] ([facility] NORMAL RANGES Age WBC RBC HGB HCT [...] HCT IS 5% LESS SOURCE FOR DATA: CHARIS DYN 1800 OPERATION MANUAL( AUTOMATED BLOOD COUNTS AND [...] Normal 80 and above >32 mL/min Normal Alt (SGPT) 28 U/L 0-41 [facility] ([facility] NORMAL RANGES Age WBC RBC HGB HCT MCV PLT Adult M 4.1-10.9 4.20-6.30 12.0-18.0 37.0-51.0 80-97 140-440 Adult F 4.1-10.9 4.04-5.48 12.0-18.0 37.0-51.0 80- 140-440 0 -1 Yr 5.0-20.0 3.9-5.9 15-18 [...] HCT IS 5% LESS SOURCE FOR DATA: Brammo 1800 OPERATION MANUAL( AUTOMATED BLOOD COUNTS AND [...] Normal 80 and above >32 mL/min Normal Anion Gap 17 mmol/L [facility] ([facility] NORMAL RANGES Age WBC RBC HGB HCT [...] HCT IS 5% LESS SOURCE FOR DATA: Brammo 1800 OPERATION MANUAL( AUTOMATED BLOOD COUNTS AND [...] Normal 80 and above >32 mL/min Normal Tbili 0.30 mg/dL 0.0-1.2 [facility] NORMAL RANGES Age WBC RBC HGB HCT [...] HCT IS 5% LESS SOURCE FOR DATA: Brammo 1800 OPERATION MANUAL( AUTOMATED BLOOD COUNTS AND [...] Normal 80 and above >32 mL/min Normal Osmolality-Calculated 273.1 [facility] ([facility] NORMAL RANGES Age WBC RBC HGB HCT [...] HCT IS 5% LESS SOURCE FOR DATA: Brammo 1800 OPERATION MANUAL( AUTOMATED BLOOD COUNTS AND [...] Normal 80 and above >32 mL/min Normal eGFR Non-Afr. Burkinan 110 # [facility] ([facility] NORMAL RANGES Age WBC RBC HGB HCT [...] HCT IS 5% LESS SOURCE FOR DATA: Brammo 1800 OPERATION MANUAL( AUTOMATED BLOOD COUNTS AND [...] Normal 80 and above >32 mL/min Normal eGFR 128 # [facility] ( [facility] NORMAL RANGES Age WBC RBC HGB HCT [...] HCT IS 5% LESS SOURCE FOR DATA: Brammo 1800 OPERATION MANUAL( AUTOMATED BLOOD COUNTS AND [...] Normal 80 and above >32 mL/min Normal ID Date Data Source [id number] 01/03/2021 04:01:00 PM EDT [facility] Name Value Range Interpretation Code Description Data Liz rce(s) Supporting Document(s) SARS coronavirus 2 RNA [Presence] in Res piratory specimen by ARIK with probe detection Not detected [facility] This lab was ordered by [facility] and re ported by [facility]. ID Date Data Source [id number] 01/03/2021 09:01:00 AM EDT [facility] Name Value Range Interpretation Code Description Data Liz rce(s) Supporting Document(s) SARS-COV-2 RNA RESP QL [facility]K+PROBE Not detected [facility] This lab was ordered by [facility] Employee Cov id and reported by [employer] [place]. ID Date Data Source [id number] 01/04/2021 01:18:00 PM EDT [facility] Name Value Range Interpretation Code Description Data Liz rce(s) Supporting Document(s) [id number] NOT DETECTED [facility] A Not Detected result means that SARS-Co V-2 RNA was notpresent in the specimen above the limit of detection.A Not Detected result does not rule out the possibilityof COVID-19 and should not be used as the sole basis fortreatment or patient management decisions. If COVID-19is still suspected, based on exposure history togetherwith other clinical findings, re-testing should beconsidered in the context of clinical observations andepidemiological data for patient management decisions.Test Method: Nucleic Acid Amplification Test includingreverse library services coordinator polymerase chain reaction (RT-PCR)and transcr iption mediated amplification (TMA). The testmethod meets the [place] Centers for Disease Control andprevention (CDC) pre departure and arrival requirementfor viral test for COVID-19 dated April 04, 2020.Testing requirements for traveling may change with time.The patient is responsible for determining the testrequirements for each nation while they are traveling.This test has been authorized by the FDA under anEmergency Use Authorization (EUA) for use by authorizedlaboratories.Please review the "Fact Sheets" and FDA authorizedlabeling available for health care providers andpatients using the following websites:https://www.[employer].com/home/Covid-19/HCP/NAAT/fact-nuukp2hwxp s://www.[employer]/home/Covid-19/Patients/NAAT/fact-bylur8Yja to the current public health emergency, [facility] is accepting samples from appropriateclinical sources collected using wide variety ofswabs and transport media for COVID-19. Not detectedtest results derived from specimens received in non-commercially manufactured viral collection kits or thosenot yet authorized by FDA for COVID-19 testing should becautiously evaluated and take extra precautions such asadditional clinical monitoring, including collectionof an additional specimen.Additional information about COVID-19 can be foundat the [employer] website:[facility].com/Covid19. ID Date Data Source [id number] 12/31/2020 07:06:00 PM EDT [facility] Name Value Range Interpretation Code Description Data Liz rce(s) Supporting Document(s) SARS coronavirus 2 RNA [Presence] in Res piratory specimen by ARIK with probe detection Not detected [facility] and re ported by [employer]. ID Date Data Source [id number] 01/01/2021 11:00:00 AM EDT [facility] Name Value Range Interpretation Code Description Data Liz rce(s) Supporting Document(s) [id number] NOT DETECTED [facility] A Not Detected result means that SARS-Co V-2 RNA was notpresent in the specimen above the limit of detection.A Not Detected result does not rule out the possibilityof COVID-19 and should not be used as the sole basis fortreatment or patient management decisions. If COVID-19is still suspected, based on exposure history togetherwith other clinical findings, re-testing should beconsidered in the context of clinical observations andepidemiological data for patient management decisions.Test Method: Nucleic Acid Amplification Test includingreverse library services coordinator polymerase chain reaction (RT-PCR)and transcr iption mediated amplification (TMA). The testmethod meets the [place] Centers for Disease Control andprevention (CDC) pre departure and arrival requirementfor viral test for COVID-19 dated April 04, 2020.Testing requirements for traveling may change with time.The patient is responsible for determining the testrequirements for each nation while they are traveling.This test has been authorized by the FDA under anEmergency Use Authorization (EUA) for use by authorizedlaboratories.Please review the "Fact Sheets" and FDA authorizedlabeling available for health care providers andpatients using the following websites:https://www.[employer].com/home/Covid-19/HCP/NAAT/fact-wltud4qxyp s://www.[employer].com/home/Covid-19/Patients/NAAT/fact-shqqs7Jke to the current public health emergency, [facility] is accepting samples from appropriateclinical sources collected using wide variety ofswabs and transport media for COVID-19. Not detectedtest results derived from specimens received in non-commercially manufactured viral collection kits or thosenot yet authorized by FDA for COVID-19 testing should becautiously evaluated and take extra precautions such asadditional clinical monitoring, including collectionof an additional specimen.Additional information about COVID-19 can be foundat the [place] website:www.[facility].[employer]/Covid19. ID Date Data Source [id number] 12/31/2020 12:06:00 PM EDT [facility] Name Value Range Interpretation Code Description Data Liz rce(s) Supporting Document(s) SARS-COV-2 RNA RESP QL ARIK+PROBE Not detected [facility] This lab was ordered by [facility] Employee Cov id and reported by [employer]. ID Date Data Source [id number] 12/24/2020 07:10:00 PM EDT [facility] Name Value Range Interpretation Code Description Data Liz rce(s) Supporting Document(s) SARS coronavirus 2 RNA [Presence] in Res piratory specimen by ARIK with probe detection Not detected [facility] This lab [facility] by [facility] and re ported by [facility]. ID Date Data Source [id number] 12/24/2020 12:10:00 PM EDT [facility] Name Value Range Interpretation Code Description Data Liz rce(s) Supporting Document(s) SARS-COV-2 RNA RESP QL ARIK+PROBE Not detected [facility] This lab was ordered by [facility] Employee Cov id and reported by [employer] [place]. ID Date Data Source [id number] 12/25/2020 10:04:00 AM EDT [facility] Name Value Range Interpretation Code Description Data Liz rce(s) Supporting Document(s) [id number] NOT DETECTED [facility] A Not Detected result means that SARS-Co V-2 RNA was notpresent in the specimen above the limit of detection.A Not Detected result does not rule out the possibilityof COVID-19 and should not be used as the sole basis fortreatment or patient management decisions. If COVID-19is still suspected, based on exposure history togetherwith other clinical findings, re-testing should beconsidered in the context of clinical observations andepidemiological data for patient management decisions.Test Method: Nucleic Acid Amplification Test includingreverse library services coordinator polymerase chain reaction (RT-PCR)and transcr iption mediated amplification (TMA). The testmethod meets the US Centers for Disease Control andprevention (CDC) pre departure and arrival requirementfor viral test for COVID-19 dated April 04, 2020.Testing requirements for traveling may change with time.The patient is responsible for determining the testrequirements for each nation while they are traveling.This test has been authorized by the FDA under anEmergency Use Authorization (EUA) for use by authorizedlaboratories.Please review the "Fact Sheets" and FDA authorizedlabeling available for health care providers andpatients using the following websites:[email or web address] to the current public health emergency, [facility] is accepting samples from appropriateclinical sources collected using wide variety ofswabs and transport media for COVID-19. Not detectedtest results derived from specimens received in non-commercially manufactured viral collection kits or thosenot yet authorized by FDA for COVID-19 testing should becautiously evaluated and take extra precautions such asadditional clinical monitoring, including collectionof an additional specimen.Additional information about COVID-19 can be foundat the [place] website:[email or web address]. ID Date Data Source [id number] 11/15/2020 02:41:00 PM EDT [facility] ([facility] Name Value Range Interpretation Code Description Data Liz rce(s) Supporting Document(s) Lipoprotein lipase [Enzymatic activity/volume] in Serum or P lasma 108 U/L 73-393 Normal (applies to non-numeric results) [facility] ([facility] Natriuretic peptide.B prohormone N-Terminal [Mass/volu me] in Serum or Plasma 20 pg/mL Normal (applies to non-numeric results) [facility] ([facility] Thyroxine (T4) free [Mass/volume] in Serum or Plasma 0.91 ng/dL 0.76-1.46 Normal (applies to non-numeric results) [facility] Thyrotropin [Units/volume] in Serum or Plasma 1.360 uIU/ML 0. 358-3.740 Normal (applies to non-numeric results) [facility] ID Date Data Source [id number] 11/15/2020 02:41:00 PM EDT [facility] ([facility] Name Value Range Interpretation Code Description Data Liz rce(s) Supporting Document(s) Glucose, Fasting 91 mg/dL 70-100 Normal (applies to non-numeric results) [facility] ([facility] Blood Urea Nitrogen 16 mg/dL 7-18 Normal (applies to non-nume nell results) [facility] ([facility] Creatinine For GFR 0.69 mg/dL 0.70-1.30 Below low normal [facility] ([facility] Sodium Level 138 meq/L 136-145 Normal (applies to non-numeric res ults) [facility] ([facility] Glomerular Filtration Rate Laboratory test result Normal (applies to non- numeric results) [facility] ([facility] ) <content>Units are mL/min/1.73 m2</content>
<content></content>
<content>Chronic Kidney Disease Staging per NKF:</content>
<content></content>
<content>Stage I & II GFR >=60 Normal to Mildly Decreased</content>
<content>Stage III GFR 30- 59 Moderately Decreased</content>
<content>Stage IV GFR 15-29 Severely Decreased</content>
<content>Stage V GFR <15 Very Little GFR Left</content>
<content>ESRD GFR <15 on VANSTONE MACHINE OPERATOR</content>
<content></content> Potassium Serum 4.4 meq/L 3.5-5.1 Normal (applies to non-numeric results) [facility] ([facility] Carbon Dioxide Level 27 meq/L 21-32 Normal (applies to non-num michell results) [facility] ([facility] Chloride Level 107 meq/L 98-107 Normal (applies to non-numeric r esults) [facility] ([facility] Anion Gap 4 meq/L 8-16 Below low normal [facility] ( [facility] Calcium Level 9.0 mg/dL 8.5-10.1 Normal (applies to non-numeric re sults) [facility] ([facility] ID Date Data Source [id number] 11/15/2020 02:41:00 PM EDT [facility] ([facility] Name Value Range Interpretation Code Description Data Liz rce(s) Supporting Document(s) Ast/Sgot 20 U/L 7-37 Normal (applies to non-numeric resul ts) [facility] ([facility] Alt/SGPT 41 U/L 12-78 Normal (applies to non-numeric resul ts) [facility] ([facility] Bilirubin,Total 0.3 mg/dL 0.2-1.0 Normal (applies to non-numeric results) [facility] ([facility] Alkaline Phosphatase 102 U/L 45-117 Normal (applies to non-num michell results) [facility] ([facility] Total Protein 6.5 GM/DL 6.4-8.2 Normal (applies to non-numeric re sults) [facility] ([facility] Bilirubin,Direct 0.1 mg/dL 0.0-0.2 Normal (applies to non-numeric results) [facility] ([facility] Albumin 3.5 GM/DL 3.2-5.2 Normal (applies to non-numeric resul ts) [facility] ([facility] Albumin/Globulin Ratio 1.2 Normal (applies to non-n umeric results) [facility] ([facility] ID Date Data Source [id number] 11/15/2020 02:41:00 PM EDT [facility] ([facility] Name Value Range Interpretation Code Description Data Liz e(s) Supporting Document(s) CPK Creatine Phosphokinase 117 U/L 39-308 Mariluz l (applies to non-numeric results) [facility] ([facility] ) CK-MB Value Mass Laboratory test result Normal ( applies to non-numeric results) [facility] ([facility] ) MB/CK Relative Index 0.85 Normal (applies to non-num michell results) [facility] ([facility] <content>DIAGNOSIS CRITERIA</content>
<content>MMB ng/ml Relative Index (RI)</content>
<content>NON-AMI < or = 5 N/A</content>
<content>VILLATORO ZONE > 5 < or = 4</content>
<content>AMI > 5 > 4</content>
<content></content> Troponin I Laboratory test result Normal (applies to non-n umeric results) [facility] ([facility] <content>Troponin I Reference Interval f or Siemens [place] LOCI:</content>
<content></content>
<content>99th Percentile= 0.00-0.045 ng/ml</content>
<content></content>
<content>Risk Stratification:</content>
<content><= 0.10 ng/ml Decreased Risk for Adverse Clinical</content>
<content>Events.</content>
<content>0.10-1.50 ng/ml Increased Risk for Adverse Clinical</content>
<content>Events. Evaluation of additional</content>
<content>criterion and/or repeat testing in 2-6</content>
<content>hours is suggested to rule out myocardial</content>
<content>damage.</content>
<content>>= 1.50 ng/ml Indicative of Myocardial Injury.</content>
<content></content> ID Date Data Source [id number] 11/15/2020 02:41:00 PM EDT [facility] ([facility] Name Value Range Interpretation Code Description Data Liz rce(s) Supporting Document(s) Red Blood Count 4.74 10 4.30-6.10 Normal (applies to non-numeric results) [facility] ([facility] White Blood Count 7.5 10 4.0-10.0 Normal (applies to non-numeri c results) [facility] ([facility] Hematocrit 40.7 % 42.0-52.0 Below low normal [facility] ( [facility] Hemoglobin 13.8 g/dL 13.5-17.5 Normal (applies to non-numeric resul ts) [facility] ([facility] Mean Corpuscular Volume 85.9 fl 80.0-96.0 Normal ( applies to non-numeric results) [facility] ([facility] ) Mean Corpuscular HGB Conc 33.9 g/dL 32.0-36.5 Normal (applies to non-numeric results) [facility] ([facility] ) Mean Corpuscular Hemoglobin 29.1 pg 27.0-33.0 Norm al (applies to non-numeric results) [facility] ([facility] ) Platelet Count, Automated 289 10 150-450 Normal (applies to non-numeric results) [facility] ([facility] ) Neutrophils % 67.3 % 36.0-66.0 Above high normal [facility] ([facility] Red Cell Distribution Width 12.1 % 11.5-14.5 Norm al (applies to non-numeric results) [facility] ([facility] ) Rush % 5.2 % 2.0-8.0 Normal (applies to non-numeric resul ts) [facility] ([facility] Lymph % 23.9 % 24.0-44.0 Below low normal [facility] ( [facility] Immature Granulocyte % 0.5 % 0-3.0 Normal (applies to non-n umeric results) [facility] ([facility] Eos % 2.3 % 0.0-3.0 Normal (applies to non-numeric resul ts) [facility] ([facility] Baso % 0.8 % 0.0-1.0 Normal (applies to non-numeric resul ts) [facility] ([facility] Neutrophils # 5.1 10 1.5-8.5 Normal (applies to non-numeric re sults) [facility] ([facility] Lymph # 1.8 10 1.5-5.0 Normal (applies to non-numeric resul ts) [facility] Nucleated Red Blood Cell % 0.0 % 0-0 Normal (applies to n on-numeric results) [facility] Rush # 0.4 10 0.0-0.8 Normal (applies to non-numeric resul ts) [facility] Baso # 0.1 10 0.0-0.2 Normal (applies to non-numeric resul ts) [facility] ([facility] Eos # 0.2 10 0.0-0.5 Normal (applies to non-numeric resul ts) [facility] ID Date Data Source [id number] 11/15/2020 10:14:00 AM EDT [facility] Name Value Range Interpretation Code Description Data Liz rce(s) Supporting Document(s) White Blood Count 7.5 4.0-10.0 [facility] ([facility]) Hemoglobin 13.8 [facility] ([facility]) Platelets 289 150-450 [facility] Red Blood Count 4.74 4.30-6.10 [facility] ([facility]) Hematocrit 40.7 [facility] ([facility]) ID Date Data Source [id number] 11/15/2020 10:14:00 AM EDT [facility] Name Value Range Interpretation Code Description Data Liz rce(s) Supporting Document(s) Troponin Laboratory test result [facility] ([facility]) Natriuretic peptide.B prohormone N-Terminal [Mass/volu me] in Serum or Plasma 20 [facility] ([facility]) Thyroid Stimulating Hormone 1.360 ME [facility] ([facility]) Lipoprotein lipase [Enzymatic activity/volume] in Serum or Plasma 108 [facility] ([facility]) Free T4 0.91 [facility] ([facility]iology [facility]) ID Date Data Source [id number] 11/15/2020 10:14:00 AM EDT [facility] ([facility]) Name Value Range Interpretation Code Description Data Liz rce(s) Supporting Document(s) CPK-MB Laboratory test result [facility] ([facility]) Creatine kinase [Enzymatic activity/volume] in Serum or Plasma 117 [facility] ([facility]) ID Date Data Source [id number] 11/15/2020 10:14:00 AM EDT [facility] [place] Name Value Range Interpretation Code Description Data Ilz rce(s) Supporting Document(s) Albumin [Mass/volume] in Serum or Plasma 3.5 [facility] ([facility]) Alanine aminotransferase [Enzymatic activity/volume] in Serum or Pl asma 41 [facility] ([facility]) Carbon dioxide, total [Moles/volume] in Serum or Plasma 27 [facility] ([facility]) Calcium [Mass/volume] in Serum or Plasma 9.0 [facility] ([facility]) Alkaline phosphatase [Enzymatic activity/volume] in Serum or Plasma 1 02 [facility] ([facility]) Chloride [Moles/volume] in Serum or Plasma 107 [facility] ([facility]) Potassium [Moles/volume] in Serum or Plasma 4.4 [facility] ([facility]) Aspartate aminotransferase [Enzymatic activity/volume] in Serum or Plasma 20 [facility] ([facility]) Sodium 138 [facility] ([facility]) Protein [Mass/volume] in Serum or Plasma 6.5 [facility] ([facility]) Creatinine For GFR 0.69 [facility] ([facility]) Glucose 91 70-100 [facility] ([facility]) Urea nitrogen [Mass/volume] in Serum or Plasma 16 [facility] ([facility]) ID Date Data Source [id number] 09/09/2020 01:04:00 AM EDT [facility] ([facility] Name Value Range Interpretation Code Description Data Liz rce(s) Supporting Document(s) White Blood Count 9.2 10 4.0-10.0 Normal (applies to non-numeri c results) [facility] ([facility] Red Blood Count 4.87 10 4.30-6.10 Normal (applies to non-numeric results) [facility] ([facility] Mean Corpuscular Volume 87.3 fl 80.0-96.0 Normal ( applies to non-numeric results) [facility] ([facility] ) Hematocrit 42.5 % 42.0-52.0 Normal (applies to non-numeric resul ts) [facility] ([facility] Hemoglobin 14.0 g/dL 13.5-17.5 Normal (applies to non-numeric resul ts) [facility] ([facility] Mean Corpuscular HGB Conc 32.9 g/dL 32.0-36.5 Normal (applies to non-numeric results) [facility] ([facility] ) Mean Corpuscular Hemoglobin 28.7 pg 27.0-33.0 Norm al (applies to non-numeric results) [facility] ([facility] ) Red Cell Distribution Width 12.7 % 11.5-14.5 Norm al (applies to non-numeric results) [facility] ([facility] ) Platelet Count, Automated 300 10 150-450 Normal (applies to non-numeric results) [facility] ([facility] ) Neutrophils % 56.6 % 36.0-66.0 Normal (applies to non-numeric re sults) [facility] ([facility] Eos % 2.4 % 0.0-3.0 Normal (applies to non-numeric resul ts) [facility] ([facility] Lymph % 33.2 % 24.0-44.0 Normal (applies to non-numeric resul ts) [facility] ([facility] Rush % 6.5 % 2.0-8.0 Normal (applies to non-numeric resul ts) [facility] ([facility] Baso % 0.8 % 0.0-1.0 Normal (applies to non-numeric resul ts) [facility] ([facility] Immature Granulocyte % 0.5 % 0-3.0 Normal (applies to non-n umeric results) [facility] ([facility] Nucleated Red Blood Cell % 0.0 % 0-0 Normal (applies to n on-numeric results) [facility] ([facility] Lymph # 3.1 10 1.5-5.0 Normal (applies to non-numeric resul ts) [facility] ([facility] Neutrophils # 5.2 10 1.5-8.5 Normal (applies to non-numeric re sults) [facility] ([facility] Eos # 0.2 10 0.0-0.5 Normal (applies to non-numeric resul ts) [facility] ([facility] Baso # 0.1 10 0.0-0.2 Normal (applies to non-numeric resul ts) [facility] ([facility] Rush # 0.6 10 0.0-0.8 Normal (applies to non-numeric resul ts) [facility] ([facility] ID Date Data Source [id number] 09/09/2020 01:04:00 AM EDT [facility] ([facility] Name Value Range Interpretation Code Description Data Liz rce(s) Supporting Document(s) Appearance, Urine RFX Laboratory test result Nor mal (applies to non-numeric results) [facility] ([facility] ) Color, Urine RFX Laboratory test result Normal ( applies to non-numeric results) [facility] ([facility] ) PH,Urine RFX 5.0 units 5.0-9.0 Normal (applies to non-numeric res ults) [facility] ([facility] Specific [place] Ur Auto RFX 1.024 1.002-1.035 Nor mal (applies to non-numeric results) [facility] ([facility] ) Protein, Urine Auto RFX Laboratory test result Above high normal [facility] ([facility] Glucose, Urine (Ua) Auto RFX Laboratory test result Normal (applies to non- numeric results) [facility] ([facility] ) Ketone, Urine Auto RFX Laboratory test result No rmal (applies to non-numeric results) [facility] ([facility] ) Urobilinogen, Urine Auto RFX 0.2 mg/dL 0.0-2.0 Nor mal (applies to non-numeric results) [facility] ([facility] ) Bilirubin, Urine Auto RFX Laboratory test result Normal (applies to non- numeric results) [facility] Nitrite, Urine Auto RFX Laboratory test result N ormal (applies to non-numeric results) [facility] ([facility] ) Blood, Urine Blood RFX Laboratory test result No rmal (applies to non-numeric results) [facility] ([facility] ) Leukocyte Esterase Ur Auto RFX Laboratory test result Normal (applies to non- numeric results) [facility] ([facility] ) RBC, Urine Auto RFX 2 /HPF 0-3 Normal (applies to non-nume nell results) [facility] ([facility] WBC, Urine Auto RFX 2 /HPF 0-3 Normal (applies to non-nume nell results) [facility] ([facility] Bacteria, Urine Auto RFX Laboratory test result Normal (applies to non-numeric results) [facility] ([facility] ) Squam Epithelial Cell Ur Aurfx 0 /HPF 0-6 N ormal (applies to non-numeric results) [facility] ([facility] ) Hyaline Cast, Urine Auto RFX 0 /LPF 0-1 Normal (appl ies to non-numeric results) [facility] ([facility] Mucus, Urine RFX Laboratory test result Normal ( applies to non-numeric results) [facility] ([facility] ) ID Date Data Source [id number] 09/09/2020 01:03:00 AM EDT [facility] ([facility] Name Value Range Interpretation Code Description Data Liz rce(s) Supporting Document(s) Lipoprotein lipase [Enzymatic activity/volume] in Serum or P lasma 119 U/L 73-393 Normal (applies to non-numeric results) [facility] ([facility] ID Date Data Source [id number] 09/09/2020 01:03:00 AM EDT [facility] ([facility] Name Value Range Interpretation Code Description Data Liz rce(s) Supporting Document(s) Glucose, Fasting 103 mg/dL 70-100 Above high normal M [facility] ([facility] Creatinine For GFR 0.80 mg/dL 0.70-1.30 Normal (applies to non -numeric results) [facility] ([facility] Blood Urea Nitrogen 14 mg/dL 7-18 Normal (applies to non-nume nell results) [facility] ([facility] Glomerular Filtration Rate Laboratory test result Normal (applies to non- numeric results) [facility] ([facility] ) <content>Units are mL/min/1.73 m2</content>
<content></content>
<content>Chronic Kidney Disease Staging per NKF:</content>
<content></content>
<content>Stage I & II GFR >=60 Normal to Mildly Decreased</content>
<content>Stage III GFR 30-59 Moderately Decreased</content>
<content>Stage IV GFR 15-29 Severely Decreased</content>
<content>Stage V GFR <15 Very Little GFR Left</content>
<content>ESRD GFR <15 on VANSTONE MACHINE OPERATOR</content>
<content></content> Sodium Level 140 meq/L 136-145 Normal (applies to non-numeric res ults) [facility] ([facility] Carbon Dioxide Level 30 meq/L 21-32 Normal (applies to non-num michell results) [facility] ([facility] Chloride Level 107 meq/L 98-107 Normal (applies to non-numeric r esults) [facility] ([facility] Potassium Serum 4.1 meq/L 3.5-5.1 Normal (applies to non-numeric results) [facility] ([facility] Calcium Level 8.7 mg/dL 8.5-10.1 Normal (applies to non-numeric re sults) [facility] ([facility] Anion Gap 3 meq/L 8-16 Below low normal [facility] ( [facility] ID Date Data Source [id number] 09/09/2020 01:03:00 AM EDT [facility] ([facility] Name Value Range Interpretation Code Description Data Liz rce(s) Supporting Document(s) Ast/Sgot 21 U/L 7-37 Normal (applies to non-numeric resul ts) [facility] ([facility] Alt/SGPT 41 U/L 12-78 Normal (applies to non-numeric resul ts) [facility] ([facility] Bilirubin,Total 0.4 mg/dL 0.2-1.0 Normal (applies to non-numeric results) [facility] ([facility] Alkaline Phosphatase 107 U/L 45-117 Normal (applies to non-num michell results) [facility] ([facility] Total Protein 6.9 GM/DL 6.4-8.2 Normal (applies to non-numeric re sults) [facility] ([facility] Bilirubin,Direct 0.1 mg/dL 0.0-0.2 Normal (applies to non-numeric results) [facility] ([facility] Albumin 3.9 GM/DL 3.2-5.2 Normal (applies to non-numeric resul ts) [facility] ([facility] Albumin/Globulin Ratio 1.3 Normal (applies to non-n umeric results) [facility] ([facility] ID Date Data Source [id number] 08/06/2020 08:57:00 AM EDT [facility] ([facility] Name Value Range Interpretation Code Description Data Liz rce(s) Supporting Document(s) Thyrotropin [Units/volume] in Serum or Plasma 2.535 ulU/mL 0.60-4.8 [facility] ([facility] ID Date Data Source [id number] 08/06/2020 08:57:00 AM EDT [facility] ([facility] Name Value Range Interpretation Code Description Data Liz rce(s) Supporting Document(s) Trig 147 mg/dL 35-200 [facility] ([facility] CHRONIC KIDNEY DISEASE STAGING PER NKF: MALE [...] DESIRABLE: <130 MG/DL <110 MG/DL BORDERLINE-HIGH RISK: 130- 159 MG/DL 110-129 MG/DL HIGH RISK: >160 MG/DL >130 MG/DL *CHILDREN AND ADOLESCENTS REPRESENTS INDIVIDUALA AGED 2-19 YEARS EXCLUSIVE. Cholesterol in HDL [Mass/volume] in Serum or Plasma 48 mg/dL 35-55 [facility] ([facility] CHRONIC KIDNEY DISEASE STAGING PER NKF: MALE [...] DESIRABLE: <130 MG/DL <110 MG/DL BORDERLINE-HIGH RISK: 130- 159 MG/DL 110-129 MG/DL HIGH RISK: >160 MG/DL >130 MG/DL *CHILDREN AND ADOLESCENTS REPRESENTS INDIVIDUALA AGED 2-19 YEARS EXCLUSIVE. Chol 177 mg/dL 0-200 [facility] ([facility] CHRONIC KIDNEY DISEASE STAGING PER NKF: MALE [...] DESIRABLE: <130 MG/DL <110 MG/DL BORDERLINE-HIGH RISK: 130- 159 MG/DL 110-129 MG/DL HIGH RISK: >160 MG/DL >130 MG/DL *CHILDREN AND ADOLESCENTS REPRESENTS INDIVIDUALA AGED 2-19 YEARS EXCLUSIVE. LDL_C 99 Calc 75-129 [facility] ([facility] CHRONIC KIDNEY DISEASE STAGING PER NKF: MALE [...] DESIRABLE: <130 MG/DL <110 MG/DL BORDERLINE-HIGH RISK: 130- 159 MG/DL 110-129 MG/DL HIGH RISK: >160 MG/DL >130 MG/DL *CHILDREN AND ADOLESCENTS REPRESENTS INDIVIDUALA AGED 2-19 YEARS EXCLUSIVE. Cho/HDL Ratio 3.7 CALC MEDWESLEY ([facility] CHRONIC KIDNEY DISEASE STAGING PER NKF: MALE [...] DESIRABLE: <130 MG/DL <110 MG/DL BORDERLINE-HIGH RISK: 130- 159 MG/DL 110-129 MG/DL HIGH RISK: >160 MG/DL >130 MG/DL *CHILDREN AND ADOLESCENTS REPRESENTS INDIVIDUALA AGED 2-19 YEARS EXCLUSIVE. ID Date Data Source [id number] 08/06/2020 08:57:00 AM JEEVAN MED[facility] ([facility] Name Value Range Interpretation Code Description Data Liz rce(s) Supporting Document(s) Glu 104 mg/dL 70-110 JONATHAN ([facility] CHRONIC KIDNEY DISEASE STAGING PER NKF: MALE [...] DESIRABLE: <130 MG/DL <110 MG/DL BORDERLINE-HIGH RISK: 130- 159 MG/DL 110-129 MG/DL HIGH RISK: >160 MG/DL >130 MG/DL *CHILDREN AND ADOLESCENTS REPRESENTS INDIVIDUALA AGED 2-19 YEARS EXCLUSIVE. BUN 14 mg/dL 8-23 JONATHAN ([facility] CHRONIC KIDNEY DISEASE STAGING PER NKF: MALE [...] DESIRABLE: <130 MG/DL <110 MG/DL BORDERLINE-HIGH RISK: 130- 159 MG/DL 110-129 MG/DL HIGH RISK: >160 MG/DL >130 MG/DL *CHILDREN AND ADOLESCENTS REPRESENTS INDIVIDUALA AGED 2-19 YEARS EXCLUSIVE. BUN/Creatinine Ratio 18.8 Calc MEDENT ([facility] CHRONIC KIDNEY DISEASE STAGING PER NKF: MALE [...] DESIRABLE: <130 MG/DL <110 MG/DL BORDERLINE-HIGH RISK: 130- 159 MG/DL 110-129 MG/DL HIGH RISK: >160 MG/DL >130 MG/DL *CHILDREN AND ADOLESCENTS REPRESENTS INDIVIDUALA AGED 2-19 YEARS EXCLUSIVE. Creat 0.7 mg/dL 0.7-1.2 MEDENT ([facility] CHRONIC KIDNEY DISEASE STAGING PER NKF: MALE [...] DESIRABLE: <130 MG/DL <110 MG/DL BORDERLINE-HIGH RISK: 130- 159 MG/DL 110-129 MG/DL HIGH RISK: >160 MG/DL >130 MG/DL *CHILDREN AND ADOLESCENTS REPRESENTS INDIVIDUALA AGED 2-19 YEARS EXCLUSIVE. Na 137 mmol/L 136-145 [facility] ([facility] CHRONIC KIDNEY DISEASE STAGING PER NKF: MALE [...] DESIRABLE: <130 MG/DL <110 MG/DL BORDERLINE-HIGH RISK: 130- 159 MG/DL 110-129 MG/DL HIGH RISK: >160 MG/DL >130 MG/DL *CHILDREN AND ADOLESCENTS REPRESENTS INDIVIDUALA AGED 2-19 YEARS EXCLUSIVE. K 4.4 mmol/L 3.5-5.1 MED[facility] ([facility] CHRONIC KIDNEY DISEASE STAGING PER NKF: MALE [...] DESIRABLE: <130 MG/DL <110 MG/DL BORDERLINE-HIGH RISK: 130- 159 MG/DL 110-129 MG/DL HIGH RISK: >160 MG/DL >130 MG/DL *CHILDREN AND ADOLESCENTS REPRESENTS INDIVIDUALA AGED 2-19 YEARS EXCLUSIVE. Co2 24.4 mmol/L 22.0-29.0 MEDENT ([facility] CHRONIC KIDNEY DISEASE STAGING PER NKF: MALE [...] DESIRABLE: <130 MG/DL <110 MG/DL BORDERLINE-HIGH RISK: 130- 159 MG/DL 110-129 MG/DL HIGH RISK: >160 MG/DL >130 MG/DL *CHILDREN AND ADOLESCENTS REPRESENTS INDIVIDUALA AGED 2-19 YEARS EXCLUSIVE. CL 101.2 mmol/L 98.0-107.0 MEDENT ([facility] CHRONIC KIDNEY DISEASE STAGING PER NKF: MALE [...] DESIRABLE: <130 MG/DL <110 MG/DL BORDERLINE-HIGH RISK: 130- 159 MG/DL 110-129 MG/DL HIGH RISK: >160 MG/DL >130 MG/DL *CHILDREN AND ADOLESCENTS REPRESENTS INDIVIDUALA AGED 2-19 YEARS EXCLUSIVE. TP 6.3 g/dL 6.6-8.7 Below low normal MED[facility] ( [facility] CHRONIC KIDNEY DISEASE STAGING PER NKF: MALE [...] DESIRABLE: <130 MG/DL <110 MG/DL BORDERLINE-HIGH RISK: 130- 159 MG/DL 110-129 MG/DL HIGH RISK: >160 MG/DL >130 MG/DL *CHILDREN AND ADOLESCENTS REPRESENTS INDIVIDUALA AGED 2-19 YEARS EXCLUSIVE. CA 9.1 mg/dL 8.6-10.2 MED[facility] ([facility] CHRONIC KIDNEY DISEASE STAGING PER NKF: MALE [...] DESIRABLE: <130 MG/DL <110 MG/DL BORDERLINE-HIGH RISK: 130- 159 MG/DL 110-129 MG/DL HIGH RISK: >160 MG/DL >130 MG/DL *CHILDREN AND ADOLESCENTS REPRESENTS INDIVIDUALA AGED 2-19 YEARS EXCLUSIVE. Alb 4.2 g/dL 3.5-5.2 [facility] ([facility] CHRONIC KIDNEY DISEASE STAGING PER NKF: MALE [...] DESIRABLE: <130 MG/DL <110 MG/DL BORDERLINE-HIGH RISK: 130- 159 MG/DL 110-129 MG/DL HIGH RISK: >160 MG/DL >130 MG/DL *CHILDREN AND ADOLESCENTS REPRESENTS INDIVIDUALA AGED 2-19 YEARS EXCLUSIVE. Globulin 2.1 Calc MED[facility] ([facility] CHRONIC KIDNEY DISEASE STAGING PER NKF: MALE [...] DESIRABLE: <130 MG/DL <110 MG/DL BORDERLINE-HIGH RISK: 130- 159 MG/DL 110-129 MG/DL HIGH RISK: >160 MG/DL >130 MG/DL *CHILDREN AND ADOLESCENTS REPRESENTS INDIVIDUALA AGED 2-19 YEARS EXCLUSIVE. A/G Ratio 2.0 Calc MED[facility] ([facility] CHRONIC KIDNEY DISEASE STAGING PER NKF: MALE [...] DESIRABLE: <130 MG/DL <110 MG/DL BORDERLINE-HIGH RISK: 130- 159 MG/DL 110-129 MG/DL HIGH RISK: >160 MG/DL >130 MG/DL *CHILDREN AND ADOLESCENTS REPRESENTS INDIVIDUALA AGED 2-19 YEARS EXCLUSIVE. Ast (Sgot) 23 U/L 0-40 [facility] ([facility] CHRONIC KIDNEY DISEASE STAGING PER NKF: MALE [...] DESIRABLE: <130 MG/DL <110 MG/DL BORDERLINE-HIGH RISK: 130- 159 MG/DL 110-129 MG/DL HIGH RISK: >160 MG/DL >130 MG/DL *CHILDREN AND ADOLESCENTS REPRESENTS INDIVIDUALA AGED 2-19 YEARS EXCLUSIVE. Alp 107.0 U/L 40-129 MED[facility] ([facility] CHRONIC KIDNEY DISEASE STAGING PER NKF: MALE [...] DESIRABLE: <130 MG/DL <110 MG/DL BORDERLINE-HIGH RISK: 130- 159 MG/DL 110-129 MG/DL HIGH RISK: >160 MG/DL >130 MG/DL *CHILDREN AND ADOLESCENTS REPRESENTS INDIVIDUALA AGED 2-19 YEARS EXCLUSIVE. Alt (SGPT) 39 U/L 0-41 MEDENT ([facility] CHRONIC KIDNEY DISEASE STAGING PER NKF: MALE [...] DESIRABLE: <130 MG/DL <110 MG/DL BORDERLINE-HIGH RISK: 130- 159 MG/DL 110-129 MG/DL HIGH RISK: >160 MG/DL >130 MG/DL *CHILDREN AND ADOLESCENTS REPRESENTS INDIVIDUALA AGED 2-19 YEARS EXCLUSIVE. Tbili 0.30 mg/dL 0.0-1.2 MED[facility] ([facility] CHRONIC KIDNEY DISEASE STAGING PER NKF: MALE [...] DESIRABLE: <130 MG/DL <110 MG/DL BORDERLINE-HIGH RISK: 130- 159 MG/DL 110-129 MG/DL HIGH RISK: >160 MG/DL >130 MG/DL *CHILDREN AND ADOLESCENTS REPRESENTS INDIVIDUALA AGED 2-19 YEARS EXCLUSIVE. Osmolality-Calculated 275.1 Calc MED ENT ([facility] CHRONIC KIDNEY DISEASE STAGING PER NKF: MALE [...] DESIRABLE: <130 MG/DL <110 MG/DL BORDERLINE-HIGH RISK: 130- 159 MG/DL 110-129 MG/DL HIGH RISK: >160 MG/DL >130 MG/DL *CHILDREN AND ADOLESCENTS REPRESENTS INDIVIDUALA AGED 2-19 YEARS EXCLUSIVE. Anion Gap 16 mmol/L MED[facility] ([facility] CHRONIC KIDNEY DISEASE STAGING PER NKF: MALE [...] DESIRABLE: <130 MG/DL <110 MG/DL BORDERLINE-HIGH RISK: 130- 159 MG/DL 110-129 MG/DL HIGH RISK: >160 MG/DL >130 MG/DL *CHILDREN AND ADOLESCENTS REPRESENTS INDIVIDUALA AGED 2-19 YEARS EXCLUSIVE. eGFR Non-Afr. Burkinan 116 # MEDENT ([facility] CHRONIC KIDNEY DISEASE STAGING PER NKF: MALE [...] DESIRABLE: <130 MG/DL <110 MG/DL BORDERLINE-HIGH RISK: 130- 159 MG/DL 110-129 MG/DL HIGH RISK: >160 MG/DL >130 MG/DL *CHILDREN AND ADOLESCENTS REPRESENTS INDIVIDUALA AGED 2-19 YEARS EXCLUSIVE. eGFR 135 # JONATHAN ( [facility] CHRONIC KIDNEY DISEASE STAGING PER NKF: MALE [...] DESIRABLE: <130 MG/DL <110 MG/DL BORDERLINE-HIGH RISK: 130- 159 MG/DL 110-129 MG/DL HIGH RISK: >160 MG/DL >130 MG/DL *CHILDREN AND ADOLESCENTS REPRESENTS INDIVIDUALA AGED 2-19 YEARS EXCLUSIVE. ID Date Data Source [id number] 02/02/2020 08:58:00 AM EST MEDWESLEY ([facility] Name Value Range Interpretation Code Description Data Liz rce(s) Supporting Document(s) Chol 202 mg/dL 0-200 Above high normal MEDENT ([facility] CHRONIC KIDNEY DISEASE STAGING PER NKF: MALE [...] DESIRABLE: <130 MG/DL <110 MG/DL BORDERLINE-HIGH RISK: 130- 159 MG/DL 110-129 MG/DL HIGH RISK: >160 MG/DL >130 MG/DL *CHILDREN AND ADOLESCENTS REPRESENTS INDIVIDUALA AGED 2-19 YEARS EXCLUSIVE. Trig 133 mg/dL 35-200 MED[facility] ([facility] CHRONIC KIDNEY DISEASE STAGING PER NKF: MALE [...] DESIRABLE: <130 MG/DL <110 MG/DL BORDERLINE-HIGH RISK: 130- 159 MG/DL 110-129 MG/DL HIGH RISK: >160 MG/DL >130 MG/DL *CHILDREN AND ADOLESCENTS REPRESENTS INDIVIDUALA AGED 2-19 YEARS EXCLUSIVE. Cho/HDL Ratio 4.2 CALC JONATHAN ([facility] CHRONIC KIDNEY DISEASE STAGING PER NKF: MALE [...] DESIRABLE: <130 MG/DL <110 MG/DL BORDERLINE-HIGH RISK: 130- 159 MG/DL 110-129 MG/DL HIGH RISK: >160 MG/DL >130 MG/DL *CHILDREN AND ADOLESCENTS REPRESENTS INDIVIDUALA AGED 2-19 YEARS EXCLUSIVE. Cholesterol in HDL [Mass/volume] in Serum or Plasma 48 mg/dL 35-55 JONATHAN ([facility] CHRONIC KIDNEY DISEASE STAGING PER NKF: MALE [...] DESIRABLE: <130 MG/DL <110 MG/DL BORDERLINE-HIGH RISK: 130- 159 MG/DL 110-129 MG/DL HIGH RISK: >160 MG/DL >130 MG/DL *CHILDREN AND ADOLESCENTS REPRESENTS INDIVIDUALA AGED 2-19 YEARS EXCLUSIVE. LDL_C 127 Calc 75-129 [facility] ([facility] CHRONIC KIDNEY DISEASE STAGING PER NKF: MALE [...] DESIRABLE: <130 MG/DL <110 MG/DL BORDERLINE-HIGH RISK: 130- 159 MG/DL 110-129 MG/DL HIGH RISK: >160 MG/DL >130 MG/DL *CHILDREN AND ADOLESCENTS REPRESENTS INDIVIDUALA AGED 2-19 YEARS EXCLUSIVE. ID Date Data Source [id number] 02/02/2020 08:58:00 AM EST MEDENT ([facility] Name Value Range Interpretation Code Description Data Liz rce(s) Supporting Document(s) Glu 103 mg/dL 70-110 MEDENT ([facility] CHRONIC KIDNEY DISEASE STAGING PER NKF: MALE [...] DESIRABLE: <130 MG/DL <110 MG/DL BORDERLINE-HIGH RISK: 130- 159 MG/DL 110-129 MG/DL HIGH RISK: >160 MG/DL >130 MG/DL *CHILDREN AND ADOLESCENTS REPRESENTS INDIVIDUALA AGED 2-19 YEARS EXCLUSIVE. Creat 0.7 mg/dL 0.7-1.2 [facility] ([facility] CHRONIC KIDNEY DISEASE STAGING PER NKF: MALE [...] DESIRABLE: <130 MG/DL <110 MG/DL BORDERLINE-HIGH RISK: 130- 159 MG/DL 110-129 MG/DL HIGH RISK: >160 MG/DL >130 MG/DL *CHILDREN AND ADOLESCENTS REPRESENTS INDIVIDUALA AGED 2-19 YEARS EXCLUSIVE. BUN 13 mg/dL 8-23 MEDENT ([facility] CHRONIC KIDNEY DISEASE STAGING PER NKF: MALE [...] DESIRABLE: <130 MG/DL <110 MG/DL BORDERLINE-HIGH RISK: 130- 159 MG/DL 110-129 MG/DL HIGH RISK: >160 MG/DL >130 MG/DL *CHILDREN AND ADOLESCENTS REPRESENTS INDIVIDUALA AGED 2-19 YEARS EXCLUSIVE. BUN/Creatinine Ratio 18.4 CALC MEDENT ([facility] CHRONIC KIDNEY DISEASE STAGING PER NKF: MALE [...] DESIRABLE: <130 MG/DL <110 MG/DL BORDERLINE-HIGH RISK: 130- 159 MG/DL 110-129 MG/DL HIGH RISK: >160 MG/DL >130 MG/DL *CHILDREN AND ADOLESCENTS REPRESENTS INDIVIDUALA AGED 2-19 YEARS EXCLUSIVE. Na 136 mmol/L 136-145 MEDENT ([facility] CHRONIC KIDNEY DISEASE STAGING PER NKF: MALE [...] DESIRABLE: <130 MG/DL <110 MG/DL BORDERLINE-HIGH RISK: 130- 159 MG/DL 110-129 MG/DL HIGH RISK: >160 MG/DL >130 MG/DL *CHILDREN AND ADOLESCENTS REPRESENTS INDIVIDUALA AGED 2-19 YEARS EXCLUSIVE. CL 101.9 mmol/L 98.0-107.0 [facility] ([facility] CHRONIC KIDNEY DISEASE STAGING PER NKF: MALE [...] DESIRABLE: <130 MG/DL <110 MG/DL BORDERLINE-HIGH RISK: 130- 159 MG/DL 110-129 MG/DL HIGH RISK: >160 MG/DL >130 MG/DL *CHILDREN AND ADOLESCENTS REPRESENTS INDIVIDUALA AGED 2-19 YEARS EXCLUSIVE. K 4.2 mmol/L 3.5-5.1 [facility] ([facility] CHRONIC KIDNEY DISEASE STAGING PER NKF: MALE [...] DESIRABLE: <130 MG/DL <110 MG/DL BORDERLINE-HIGH RISK: 130- 159 MG/DL 110-129 MG/DL HIGH RISK: >160 MG/DL >130 MG/DL *CHILDREN AND ADOLESCENTS REPRESENTS INDIVIDUALA AGED 2-19 YEARS EXCLUSIVE. TP 6.1 g/dL 6.6-8.7 Below low normal MEDENT ( [facility] CHRONIC KIDNEY DISEASE STAGING PER NKF: MALE [...] DESIRABLE: <130 MG/DL <110 MG/DL BORDERLINE-HIGH RISK: 130- 159 MG/DL 110-129 MG/DL HIGH RISK: >160 MG/DL >130 MG/DL *CHILDREN AND ADOLESCENTS REPRESENTS INDIVIDUALA AGED 2-19 YEARS EXCLUSIVE. Co2 23.1 mmol/L 22.0-29.0 MEDENT ([facility] CHRONIC KIDNEY DISEASE STAGING PER NKF: MALE [...] DESIRABLE: <130 MG/DL <110 MG/DL BORDERLINE-HIGH RISK: 130- 159 MG/DL 110-129 MG/DL HIGH RISK: >160 MG/DL >130 MG/DL *CHILDREN AND ADOLESCENTS REPRESENTS INDIVIDUALA AGED 2-19 YEARS EXCLUSIVE. CA 8.8 mg/dL 8.6-10.2 [facility] ([facility] CHRONIC KIDNEY DISEASE STAGING PER NKF: MALE [...] DESIRABLE: <130 MG/DL <110 MG/DL BORDERLINE-HIGH RISK: 130- 159 MG/DL 110-129 MG/DL HIGH RISK: >160 MG/DL >130 MG/DL *CHILDREN AND ADOLESCENTS REPRESENTS INDIVIDUALA AGED 2-19 YEARS EXCLUSIVE. Alb 4.1 g/dL 3.5-5.2 [facility] ([facility] CHRONIC KIDNEY DISEASE STAGING PER NKF: MALE [...] DESIRABLE: <130 MG/DL <110 MG/DL BORDERLINE-HIGH RISK: 130- 159 MG/DL 110-129 MG/DL HIGH RISK: >160 MG/DL >130 MG/DL *CHILDREN AND ADOLESCENTS REPRESENTS INDIVIDUALA AGED 2-19 YEARS EXCLUSIVE. Globulin 2.0 CALC MED[facility] ([facility] CHRONIC KIDNEY DISEASE STAGING PER NKF: MALE [...] DESIRABLE: <130 MG/DL <110 MG/DL BORDERLINE-HIGH RISK: 130- 159 MG/DL 110-129 MG/DL HIGH RISK: >160 MG/DL >130 MG/DL *CHILDREN AND ADOLESCENTS REPRESENTS INDIVIDUALA AGED 2-19 YEARS EXCLUSIVE. A/G Ratio 2.1 CALC [facility] ([facility] CHRONIC KIDNEY DISEASE STAGING PER NKF: MALE [...] DESIRABLE: <130 MG/DL <110 MG/DL BORDERLINE-HIGH RISK: 130- 159 MG/DL 110-129 MG/DL HIGH RISK: >160 MG/DL >130 MG/DL *CHILDREN AND ADOLESCENTS REPRESENTS INDIVIDUALA AGED 2-19 YEARS EXCLUSIVE. Ast (Sgot) 22 U/L 0-40 [facility] ([facility] CHRONIC KIDNEY DISEASE STAGING PER NKF: MALE [...] DESIRABLE: <130 MG/DL <110 MG/DL BORDERLINE-HIGH RISK: 130- 159 MG/DL 110-129 MG/DL HIGH RISK: >160 MG/DL >130 MG/DL *CHILDREN AND ADOLESCENTS REPRESENTS INDIVIDUALA AGED 2-19 YEARS EXCLUSIVE. Alt (SGPT) 38 U/L 0-41 [facility] ([facility] CHRONIC KIDNEY DISEASE STAGING PER NKF: MALE [...] DESIRABLE: <130 MG/DL <110 MG/DL BORDERLINE-HIGH RISK: 130- 159 MG/DL 110-129 MG/DL HIGH RISK: >160 MG/DL >130 MG/DL *CHILDREN AND ADOLESCENTS REPRESENTS INDIVIDUALA AGED 2-19 YEARS EXCLUSIVE. Alp 104.6 U/L 40-129 [facility] ([facility] CHRONIC KIDNEY DISEASE STAGING PER NKF: MALE [...] DESIRABLE: <130 MG/DL <110 MG/DL BORDERLINE-HIGH RISK: 130- 159 MG/DL 110-129 MG/DL HIGH RISK: >160 MG/DL >130 MG/DL *CHILDREN AND ADOLESCENTS REPRESENTS INDIVIDUALA AGED 2-19 YEARS EXCLUSIVE. Anion Gap 16 mmol/L [facility] ([facility] CHRONIC KIDNEY DISEASE STAGING PER NKF: MALE [...] DESIRABLE: <130 MG/DL <110 MG/DL BORDERLINE-HIGH RISK: 130- 159 MG/DL 110-129 MG/DL HIGH RISK: >160 MG/DL >130 MG/DL *CHILDREN AND ADOLESCENTS REPRESENTS INDIVIDUALA AGED 2-19 YEARS EXCLUSIVE. Tbili 0.33 mg/dL 0.0-1.2 MED[facility] ([facility] CHRONIC KIDNEY DISEASE STAGING PER NKF: MALE [...] DESIRABLE: <130 MG/DL <110 MG/DL BORDERLINE-HIGH RISK: 130- 159 MG/DL 110-129 MG/DL HIGH RISK: >160 MG/DL >130 MG/DL *CHILDREN AND ADOLESCENTS REPRESENTS INDIVIDUALA AGED 2-19 YEARS EXCLUSIVE. Osmolality-Calculated 273.2 CALC MED ENT ([facility] CHRONIC KIDNEY DISEASE STAGING PER NKF: MALE [...] DESIRABLE: <130 MG/DL <110 MG/DL BORDERLINE-HIGH RISK: 130- 159 MG/DL 110-129 MG/DL HIGH RISK: >160 MG/DL >130 MG/DL *CHILDREN AND ADOLESCENTS REPRESENTS INDIVIDUALA AGED 2-19 YEARS EXCLUSIVE. eGFR Non-Afr. Burkinan 117 # MEDENT ([facility] CHRONIC KIDNEY DISEASE STAGING PER NKF: MALE [...] DESIRABLE: <130 MG/DL <110 MG/DL BORDERLINE-HIGH RISK: 130- 159 MG/DL 110-129 MG/DL HIGH RISK: >160 MG/DL >130 MG/DL *CHILDREN AND ADOLESCENTS REPRESENTS INDIVIDUALA AGED 2-19 YEARS EXCLUSIVE. eGFR 136 # MEDENT ( [facility] CHRONIC KIDNEY DISEASE STAGING PER NKF: MALE [...] DESIRABLE: <130 MG/DL <110 MG/DL BORDERLINE-HIGH RISK: 130- 159 MG/DL 110-129 MG/DL HIGH RISK: >160 MG/DL >130 MG/DL *CHILDREN AND ADOLESCENTS REPRESENTS INDIVIDUALA AGED 2-19 YEARS EXCLUSIVE. Procedure Social History Code Duration Value Status Description Data Source(s ) Smoking 01/08/2021 12:00:00 AM EDT Patient has never smoked co mpleted Patient has never smoked MEDENT ([facility]) Smoking 11/06/2020 12:00:00 AM EDT Patient has never smoked co mpleted Patient has never smoked MEDENT ([facility], ) Vital Signs ID Date Data Source UNK Name Value Range Interpretation Code Description Data Source(s) Body weight 348.00 [lb_av] 348.00 [lb_av] MEDEN T ([facility]) Body height 70 [in_i] 70 [in_i] MED[facility] ([facility] 5'10" Body mass index (BMI) [Ratio] 49.9 kg/m2 49.9 k g/m2 MEDENT ([facility]) Heart rate 77 /min 77 /min MED[facility] ([facility]) Systolic blood pressure--sitting 113 mm[Hg] 113 mm[Hg] MEDENT ([facility]) Omron XL cuff, Ra Diastolic blood pressure--sitting 83 mm[Hg] 83 mm[Hg] MEDENT ([facility]) Omron XL cuff, Ra Body height 70 [in_i] 70 [in_i] MEDENT ([facility] 5'10" Respiratory rate 14 /min 14 /min MEDENT ( [facility] [place] body weight 166 [lb_av] 166 [lb_av] MEDEN T ([facility] Body mass index (BMI) [Ratio] 49.9 kg/m2 49.9 k g/m2 MEDENT ([facility] Oxygen saturation in Arterial blood by Pulse oximetry 97 % 97 % MEDENT ([facility] Systolic blood pressure 134 mm[Hg] 134 mm[Hg] M EDENT ([facility] Diastolic blood pressure 84 mm[Hg] 84 mm[Hg] MEDENT ([facility] Body temperature 98.4 [degF] 98.4 [degF] MEDENT ([facility] Body weight 348.00 [lb_av] 348.00 [lb_av] MEDEN T ([facility] Heart rate 86 /min 86 /min MEDENT ([facility] Systolic blood pressure 134 mm[Hg] 134 mm[Hg] M EDENT ([facility], ) Diastolic blood pressure 88 mm[Hg] 88 mm[Hg] MEDENT ([facility], ) Body mass index (BMI) [Ratio] 50.1 kg/m2 50.1 k g/m2 MEDENT ([facility], ) Oxygen saturation in Arterial blood by Pulse oximetry 99 % 99 % [facility], [facility] Body height 70 [in_i] 70 [in_i] [facility] 5'10" Body weight 349.00 [lb_av] 349.00 [lb_av] MEDEN T ([facility]) Heart rate 75 /min 75 /min [facility] [place] body weight 166 [lb_av] 166 [lb_av] MEDEN T ([facility]) Body weight 158.306 kg 158.306 kg [facility] Body surface area Derived from formula 2.64 m2 2.64 m2 [facility] ([facility]) Body weight 347.8 [lb_av] 347.8 [lb_av] eCW1 ([facility]) Body weight 157.76 kg 157.76 kg W1 ([facility]) Body height 70 [in_i] 70 [in_i] eCW1 ([facility]) Body mass index (BMI) [Ratio] 49.90 kg/m2 49.90 kg/m2 eCW1 ([facility]) Systolic blood pressure 134 mm[Hg] 134 mm[Hg] e CW1 ([facility]) Diastolic blood pressure 82 mm[Hg] 82 mm[Hg] eCW1 ([facility]) Systolic blood pressure 132 mm[Hg] 132 mm[Hg] M EDENT ([facility]) Heart rate 78 /min 78 /min [facility] ([facility]) [place] body weight 166 [lb_av] 166 [lb_av] MEDEN T ([facility]) Oxygen saturation in Arterial blood by Pulse oximetry 98 % 98 % [facility] Body height 70 [in_i] 70 [in_i] [facility] 5'10" Body weight 349.00 [lb_av] 349.00 [lb_av] MEDEN T ([facility]) Body mass index (BMI) [Ratio] 50.1 kg/m2 50.1 k g/m2 [facility] ([facility]) Diastolic blood pressure 84 mm[Hg] 84 mm[Hg] MEDENT ([facility], ) Body weight 158.306 kg 158.306 kg [facility] Body surface area Derived from formula 2.64 m2 2.64 m2 [facility] ([facility]) Body weight 242.00 [lb_av] 242.00 [lb_av] MEDEN T ([facility] Body temperature 97.1 [degF] 97.1 [degF] MEDENT ([facility] Diastolic blood pressure 94 mm[Hg] 94 mm[Hg] MEDENT ([facility] Heart rate 76 /min 76 /min MED[facility] ([facility] Systolic blood pressure 154 mm[Hg] 154 mm[Hg] M EDENT ([facility] [place] body weight 166 [lb_av] 166 [lb_av] MEDEN T ([facility] Respiratory rate 16 /min 16 /min MEDENT ( [facility] Body mass index (BMI) [Ratio] 34.7 kg/m2 34.7 k g/m2 [facility] Body height 70 [in_i] 70 [in_i] [facility] ([facility] 5'10" Oxygen saturation in Arterial blood by Pulse oximetry 98 % 98 % [facility] ([facility] Systolic blood pressure 142 mm[Hg] 142 mm[Hg] M EDENT ([facility] Diastolic blood pressure 82 mm[Hg] 82 mm[Hg] [facility] ([facility] Body temperature 97.4 [degF] 97.4 [degF] [facility] ([facility] Heart rate 74 /min 74 /min [facility] ([facility] Respiratory rate 18 /min 18 /min [facility] ( [facility] Oxygen saturation in Arterial blood by Pulse oximetry 99 % 99 % [facility] ([facility] Body weight 354.00 [lb_av] 354.00 [lb_av] MEDEN T ([facility] [place] body weight 166 [lb_av] 166 [lb_av] MEDEN T ([facility] Body mass index (BMI) [Ratio] 50.8 kg/m2 50.8 k g/m2 [facility] ([facility] Body height 70 [in_i] 70 [in_i] [facility] ([facility] 5'10" Systolic blood pressure 134 mm[Hg] 134 mm[Hg] M EDENT ([facility] Diastolic blood pressure 82 mm[Hg] 82 mm[Hg] [facility] ([facility] Body temperature 98.2 [degF] 98.2 [degF] [facility] ([facility] Respiratory rate 16 /min 16 /min [facility] ( [facility] Body weight 345.00 [lb_av] 345.00 [lb_av] MEDEN T ([facility] [place] body weight 166 [lb_av] 166 [lb_av] MEDEN T ([facility] Oxygen saturation in Arterial blood by Pulse oximetry 97 % 97 % [facility] ([facility] Heart rate 70 /min 70 /min [facility] ([facility] Body height 70 [in_i] 70 [in_i] [facility] ([facility] 5'10" Body mass index (BMI) [Ratio] 49.5 kg/m2 49.5 k g/m2 [facility] ([facility] Systolic blood pressure 146 mm[Hg] 146 mm[Hg] M EDENT ([facility], [facility]) Diastolic blood pressure 89 mm[Hg] 89 mm[Hg] [facility] ([facility], [facility]) Body mass index (BMI) [Ratio] 48.8 kg/m2 48.8 k g/m2 MEDENT ([facility], [facility]) Heart rate 89 /min 89 /min MEDENT ([facility], [facility]) Respiratory rate 18 /min 18 /min MEDENT ( [facility], [facility]) Oxygen saturation in Arterial blood by Pulse oximetry 97 % 97 % MEDENT ([facility], [facility]) Body temperature 100.3 [degF] 100.3 [degF] MEDE NT ([facility], [facility]) Body weight 340.00 [lb_av] 340.00 [lb_av] MEDEN T ([facility], [facility]) Body height 70 [in_i] 70 [in_i] MEDENT ([facility], [facility]) 5'10"
--- OUTSIDE RECORDS SUMMARY | 2021-02-07 05:09 | CCD ---
Author Author [facility] Organization [facility] Address Unknown Phone Unavailable Support Name Relationship Address Phone [place]AP Next Of Kin [address] [facility] [address] [place] [address] [facility] Next [place] [address] [place] [address] [place]SCORRWAT Next [place] Kin [address] [place] [address] NICO KELLER [place] [address] [facility] Next Of Kin [address] [place] [address] WAT[place] Next Of Kin [address] [place] [address] TIN LULA PULIDO Next Of Kin [address] [place] [address] BROCK SANTAMARIA Next Of Kin [address] [facility] [address] [place] [address] [place] [address] [place] [address] Unavailable Care Team Providers Care Door Repairman Name Role Phone Nguyen Carroll METAL TEMPLATE MAKER Unavailable Unavailable Carroll Nguyen METAL TEMPLATE MAKER Unavailable Unavailable Carroll Nguyen METAL TEMPLATE MAKER Unavailable Unavailable Carroll Nguyen METAL TEMPLATE MAKER Unavailable Unavailable Carroll Nguyen METAL TEMPLATE MAKER Unavailable Unavailable Carroll Nguyen METAL TEMPLATE MAKER Unavailable Unavailable Carroll, Nguyen METAL TEMPLATE MAKER Unavailable Unavailable Carroll Nguyen METAL TEMPLATE MAKER Unavailable Unavailable Carroll Nguyen METAL TEMPLATE MAKER Unavailable Unavailable Carroll Nguyen METAL TEMPLATE MAKER Unavailable Unavailable Carroll, Nguyen METAL TEMPLATE MAKER Unavailable Unavailable Carroll, Nguyen METAL TEMPLATE MAKER Unavailable Unavailable Carroll Nguyen METAL TEMPLATE MAKER Unavailable Unavailable LAROCK, J CHERELLE METAL TEMPLATE MAKER Unavailable Unavailable LAROCK, J CHERELLE METAL TEMPLATE MAKER Unavailable Unavailable LAROCK, J CHERELLE METAL TEMPLATE MAKER Unavailable Unavailable LAROCK, J CHERELLE METAL TEMPLATE MAKER Unavailable Unavailable LAROCK, J CHERELLE METAL TEMPLATE MAKER Unavailable Unavailable LAROCK, J CHERELLE METAL TEMPLATE MAKER Unavailable Unavailable LAROCK, J CHERELLE METAL TEMPLATE MAKER Unavailable Unavailable LAROCK, J CHERELLE METAL TEMPLATE MAKER Unavailable Unavailable LAROCK, J CHERELLE METAL TEMPLATE MAKER Unavailable Unavailable LAROCK, J CHERELLE METAL TEMPLATE MAKER Unavailable Unavailable LAROCK, J CHERELLE METAL TEMPLATE MAKER Unavailable Unavailable LAROCK, J CHERELLE METAL TEMPLATE MAKER Unavailable Unavailable LAROCK, J CHERELLE METAL TEMPLATE MAKER Unavailable Unavailable LAROCK, J CHERELLE METAL TEMPLATE MAKER Unavailable Unavailable LAROCK, J CHERELLE METAL TEMPLATE MAKER Unavailable Unavailable LAROCK, J CHERELLE METAL TEMPLATE MAKER Unavailable Unavailable LAROCK, J CHERELLE METAL TEMPLATE MAKER Unavailable Unavailable LAROCK, J CHERELLE METAL TEMPLATE MAKER Unavailable Unavailable LAROCK, J CHERELLE METAL TEMPLATE MAKER Unavailable Unavailable LAROCK, J CHERELLE METAL TEMPLATE MAKER Unavailable Unavailable LAROCK, J CHERELLE METAL TEMPLATE MAKER Unavailable Unavailable LAROCK, J CHERELLE METAL TEMPLATE MAKER Unavailable Unavailable JAYE, MARTHA TALA DINING ROOM CASHIER-C Unavailable Unavailable JAYE, MARTHA TALA DINING ROOM CASHIER-C Unavailable Unavailable JAYE, MARTHA TALA DINING ROOM CASHIER-C Unavailable Unavailable JAYE, MATRHA TALA DINING ROOM CASHIER-C Unavailable Unavailable JAYE, MARTHA TALA DINING ROOM CASHIER-C Unavailable Unavailable JAYE, MARTHA TALA DINING ROOM CASHIER-C Unavailable Unavailable JAYE, MARTHA TALA DINING ROOM CASHIER-C Unavailable Unavailable JAYE, MARTHA TALA DINING ROOM CASHIER-C Unavailable Unavailable JAYE, MARTHA TALA DINING ROOM CASHIER-C Unavailable Unavailable JAYE, MARTHA TALA DINING ROOM CASHIER-C Unavailable Unavailable JAYE, MARTHA TALA DINING ROOM CASHIER-C Unavailable Unavailable JAYE, MARTHA TALA DINING ROOM CASHIER-C Unavailable Unavailable JAYE, MARTHA TALA DINING ROOM CASHIER-C Unavailable Unavailable JAYE, MARTHA TALA DINING ROOM CASHIER-C Unavailable Unavailable JAYE, MARTHA TALA DINING ROOM CASHIER-C Unavailable Unavailable JAYE, MARTHA TALA DINING ROOM CASHIER-C Unavailable Unavailable JAYE, MARTHA TALA DINING ROOM CASHIER-C Unavailable Unavailable ANTECOL, Sarah POZO MD Unavailable [...] Sarah POZO MD Unavailable Unavailable ANTECOL, Sarah PZOO MD Unavailable Unavailable ANTECOL, Sarah POZO MD [...] DEL ANGEL MD Unavailable Unavailable Sarah DEL ANEGL MD Unavailable Unavailable Sarah DEL ANGEL MD [...] ANGEL MD Unavailable Unavailable BEAN H SYLVIA STIEN Unavailable Unavailable BEAN H SYLVIA STEIN Unavailable [...] is protected by Article 27-F of the [facility] Public Health law. If you continue you may have access to information: Regarding HIV / AIDS; Provided by facilities licensed or operated by the [facility] Office of Mental Health; or Provided by the [facility] Office for People With Developmental Disabilities. If such information is present, then the following [facility] mandated warning applies: This information has [...] law may result in a fine or group home sentence or both. A general authorization for [...] 08:00:00 AM EDT [facility] ([facility]) Outpatient Attender: SYLVIA DEL ANGEL MD [facility] 04/2020 01:45:00 PM EDT [facility] ([facility] Outpatient Attender: TALA Rowe/Thurston/Cachorro/R eindl 12/03/2020 03:15:00 PM EDT [facility] ([facility] ) Outpatient [facility] [id number] 11/07/2020 12:00:00 AM EDT eCW1 ([facility]) Outpatient Attender: TALA Rowe/Thurston/Cachorro/R eindl 11/06/2020 02:15:00 PM EDT [facility] ([facility]) Outpatient Attender: SYLVIA DEL ANGEL MD [facility] 01:15:00 PM EDT [facility] ([facility] Outpatient Attender: Telly Rubin PA-C 09/08/2020 06:51:16 PM EDT - 09/08/2020 07:07:09 PM EDT [facility] ([facility]) Outpatient Attender: CHERELLE DUMONT NP 08/06 07:30:42 PM EDT - 08/17/2020 08:05:15 PM EDT [facility] Outpatient Attender: SYLVIA DEL ANGEL MD [facility] 03/2020 08:45:00 AM EDT [facility] ([facility] Outpatient Attender: SYLVIA DEL ANGEL MD [facility] 07:45:00 AM EST [facility] ([facility] Outpatient Attender: Nguyen lopes 12/26/2019 06:00:00 PM EDT [facility] ([facility] Medications Medication Brand Name Start Date Product Form Dose Route Admi nistrative Instructions Pharmacy Instructions Status Indications Reaction Description Data Source(s) Hydrochlorothiazide 12.5 MG / Losartan Potassium 100 M G Oral Tablet Losartan Potassium/Hydrochlorothiazide 01/07/2021 12:00:00 AM EDT ORAL active [facility] ([facility]) Ascorbic Acid 500 MG Oral Tablet Vitamin C 01/07/2021 12:00:00 AM EDT ORAL active [facility] ([facility]) Acetaminophen 250 MG / Aspirin 250 MG / Caffeine 65 MG Oral Tablet Rwluqow-Nmnzwuxrvykse-Gcxnzczp 01/07/2021 12:00:00 AM EDT ORAL active [facility] ([facility]) Amlodipine 10 MG Oral Tablet Amlodipine Besylate 01/07/2021 12:00:00 AM EDT ORAL active [facility] ([facility]) Hydrochlorothiazide 12.5 MG / Losartan Potassium 100 M G Oral Tablet Losartan Potassium/Hydrochlorothiazide 09/17/2020 12:00:00 AM EDT ORAL active [facility] ([facility] Insurance Providers Payer name Policy type / Coverage type Policy ID Covered green party ID Covered green party's relationship to ta Policy Ta Plan Information [employer]. [id number] Self [id number] [facility] [id number] SP [id number] [facility] [id number] SP [id number] [facility] [id number] SP [id number] [facility] [employer] [id number] Self [id number] [facility] [employer] [id number] Self [id number] [employer] [id number] SP [id number] [facility] [employer] [id number] Self [id number] [facility] [employer] [id number] Self [id number] [employer] [place] [id number] SP [id number] [facility] [employer] [id number] Self E[place]IRE ([facility]) O [id number] S [id number] EMPIRE ([facility]) O UNAVAILABLE [id number] S UNAVAILABLE [employer] O [id number] S [id number] SELF PAY UNAVAILABLE SP UNAVAILA BLE [facility] [id number] SP [id number] Problems, Conditions, and Diagnoses Code Display Name Description Problem Type Effective Dates Data Source(s) R07.9 Chest pain Chest pain Problem 01/08/2021 12:00:00 AM ED T [facility] ([facility]) I10 Essential hypertension Essential hypertension Problem 01/08/2021 12:00:00 AM EDT [facility] ([facility]) E66.01 Morbid obesity Morbid obesity Problem 01/08/2021 12:00: 00 AM EDT [facility] ([facility]) Z71.3 Dietary management surveillance Dietary management palma veillance Problem 01/08/2021 12:00:00 AM EDT [facility] ([facility]) [id number] Hyperglycemia Hyperglycemia Problem 02/02/2020 12:00:00 AM EST [facility] ([facility] Surgeries/Procedures Procedure Description Date Indications Data Source(s) ECG ROUTINE ECG W/LEAST 12 LDS W/I&R 01/08/2021 12:00: 00 AM EDT [facility] ([facility]) OFFICE OUTPATIENT NEW 45 MINUTES 01/08/2021 12:00:00 A M EDT [facility] ([facility]) OFFICE OUTPATIENT VISIT 25 MINUTES 01/07/2021 12:00:00 AM EDT [facility] ([facility] OFFICE OUTPATIENT VISIT 15 MINUTES 12/03/2020 12:00:00 AM EDT [facility] ([facility], ) OFFICE OUTPATIENT NEW 30 MINUTES 11/06/2020 12:00:00 A M EDT [facility] ([facility], ) OFFICE OUTPATIENT VISIT 25 MINUTES 09/17/2020 12:00:00 AM EDT [facility] ([facility] OFFICE OUTPATIENT VISIT 25 MINUTES 08/06/2020 12:00:00 AM EDT [facility] ([facility] Results ID Date Data Source [id number] 01/31/2021 04:30:00 PM EST [facility] Name Value Range Interpretation Code Description Data Liz rce(s) Supporting Document(s) SARS coronavirus 2 RNA [Presence] in Res piratory specimen by ARIK with probe detection Not detected [facility] This lab was ordered by [employer] and re ported by [employer]. ID Date Data Source [id number] 01/31/2021 08:30:00 AM EST [facility] Name Value Range Interpretation Code Description Data Liz rce(s) Supporting Document(s) SARS-COV-2 RNA RESP QL ARIK+PROBE Not detected [facility] This lab was ordered by [employer] Employee Cov id and reported by [facility] GILMANTON. ID Date Data Source [id number] 01/24/2021 04:35:00 PM EST [facility] Name Value Range Interpretation Code Description Data Liz rce(s) Supporting Document(s) SARS coronavirus 2 RNA [Presence] in Res piratory specimen by ARIK with probe detection Not detected [facility] This lab was ordered by [employer] and re ported by [employer]. ID Date Data Source [id number] 01/24/2021 08:35:00 AM EST [facility] Name Value Range Interpretation Code Description Data Liz rce(s) Supporting Document(s) SARS-COV-2 RNA RESP QL ARIK+PROBE Not detected [facility] This lab was ordered by [employer] Employee Cov id and reported by [facility] GILMANTON. ID Date Data Source [id number] 01/25/2021 05:50:00 PM EST [facility] Name Value Range Interpretation Code Description Data Liz rce(s) Supporting Document(s) [id number] NOT DETECTED [facility] A Not Detected [...] decisions.Test Method: Nucleic Acid Amplification Test includingreverse salesperson meats polymerase chain reaction (RT-PCR)and transcr iption mediated [...] health care providers andpatients using the following websites:https://www.BigEvidence.com/home/Covid-19/HCP/[facility]/fact-sheet. htmlhttps://www.BigEvidence.CFBank/home/Covid-19/Patients/[facility]/fact-sheet. htmlDue to the current public health emergency, [facility] is accepting samples from appropriateclinical sources collected using wide variety ofswabs and transport media for COVID-19. Not detectedtest results derived from specim ens received in non-commercially manufactured viral collection kits or thosenot yet authorized by FDA for COVID-19 testing should becautiously evaluated and take extra precautions such asadditional clinical monitoring, including collectionof an additional specimen.Additional information about COVID-19 can be foundat the Everyday.me website:www.[facility].CFBank/Covid19. ID Date Data Source [id number] 01/20/2021 05:35:00 PM EST [facility] Name Value Range Interpretation Code Description Data Liz rce(s) Supporting Document(s) SARS coronavirus 2 RNA [Presence] in Res piratory specimen by ARIK with probe detection Not detected [facility] This lab was ordered by [facility] and re ported by [facility]. ID Date Data Source [id number] 01/20/2021 09:35:00 AM EST [facility] Name Value Range Interpretation Code Description Data Liz rce(s) Supporting Document(s) SARS-COV-2 RNA RESP QL ARIK+PROBE Not detected [facility] This lab was ordered by [facility] Employee Cov id and reported by [facility]. ID Date Data Source [id number] 01/21/2021 10:12:00 AM EST [facility] Name Value Range Interpretation Code Description Data Liz rce(s) Supporting Document(s) [id number] NOT DETECTED [facility] A Not Detected [...] decisions.Test Method: Nucleic Acid Amplification Test includingreverse salesperson meats polymerase chain reaction (RT-PCR)and transcr iption mediated [...] health care providers andpatients using the following websites:https://www.BigEvidence.com/home/Covid-19/HCP/[facility]/fact-sheet. htmlhttps://www.BigEvidence.com/home/Covid-19/Patients/[facility]/fact-sheet. htmlDue to the current public health emergency, [facility] is accepting samples from appropriateclinical sources collected using wide variety ofswabs and transport media for COVID-19. Not detectedtest results derived from specim ens received in non-commercially manufactured viral collection kits or thosenot yet authorized by FDA for COVID-19 testing should becautiously evaluated and take extra precautions such asadditional clinical monitoring, including collectionof an additional specimen.Additional information about COVID-19 can be foundat the Everyday.me website:www.[facility].com/Covid19. ID Date Data Source [id number] 01/13/2021 12:00:00 AM EST [facility] Name Value Range Interpretation Code Description Data Liz rce(s) Supporting Document(s) SARS-CoV2 Rapid Antigen Negative [facility] This lab was ordered by [facility] and reported by [facility]. ID Date Data Source [id number] 01/08/2021 04:45:00 PM EDT [facility] Name Value Range Interpretation Code Description Data Liz rce(s) Supporting Document(s) SARS coronavirus 2 RNA [Presence] in Res piratory specimen by ARIK with probe detection Not detected [facility] This lab was ordered by [facility] and re ported by [facility]. ID Date Data Source [id number] 01/09/2021 12:54:00 PM EDT [facility] Name Value Range Interpretation Code Description Data Liz rce(s) Supporting Document(s) 15889-6 NOT DETECTED [facility] A Not Detected [...] decisions.Test Method: Nucleic Acid Amplification Test includingreverse salesperson meats polymerase chain reaction (RT-PCR)and transcr iption mediated [...] health care providers andpatients using the following websites:https://www.BigEvidence.CFBank/home/Covid-19/HCP/NAAT/fact-vtzmk6ggpf s://www.BigEvidence.CFBank/home/Covid-19/Patients/NAAT/fact-xkizd9Aqx to the current public health emergency, [facility] is accepting samples from appropriateclinical sources collected using wide variety ofswabs and transport media for COVID-19. Not detectedtest results derived from specimens received in non-commercially manufactured viral collection kits or thosenot yet authorized by FDA for COVID-19 testing should becautiously evaluated and take extra precautions such asadditional clinical monitoring, including collectionof an additional specimen.Additional information about COVID-19 can be foundat the Everyday.me website:www.[facility].CFBank/Covid19. ID Date Data Source [id number] 01/08/2021 09:45:00 AM EDT [facility] Name Value Range Interpretation Code Description Data Liz rce(s) Supporting Document(s) SARS-COV-2 RNA RESP QL ARIK+PROBE Not detected [facility] This lab was ordered by [facility] Employee Cov id and reported by [facility]. ID Date Data Source [id number] 01/07/2021 01:58:00 PM EDT [facility] ([facility] Name Value Range Interpretation Code Description Data Liz rce(s) Supporting Document(s) Amylase [Enzymatic activity/volume] in Serum or Plasma 50 U/L 31- 110 [facility] ([facility] Lipoprotein lipase [Enzymatic activity/volume] in Serum or Plasm a 32 U/L 13-78 [facility] ([facility] ) ID Date Data Source [id number] 01/07/2021 01:57:00 PM EDT [facility] ([facility] Name Value Range Interpretation Code Description Data Liz rce(s) Supporting Document(s) WBC 6.9 10E3/uL 4.1-10.9 [facility] (Count includes the [facility] NORMAL RANGES Age WBC [...] HCT IS 5% LESS SOURCE FOR DATA: [employer] 1800 OPERATION MANUAL( AUTOMATED BLOOD COUNTS AND [...] mL/min Normal RBC 4.90 10E6/uL 4.20-6.30 JONATHAN ([facility] NORMAL RANGES Age WBC [...] HCT IS 5% LESS SOURCE FOR DATA: [employer] 1800 OPERATION MANUAL( AUTOMATED BLOOD COUNTS AND [...] >32 mL/min Normal HGB 14.2 g/dL 12.0-18.0 [facility] NORMAL RANGES Age WBC [...] HCT IS 5% LESS SOURCE FOR DATA: [employer] 1800 OPERATION MANUAL( AUTOMATED BLOOD COUNTS AND [...] >32 mL/min Normal MCV 85.5 fL 80.0-97.0 [facility] ([facility] NORMAL RANGES Age [...] >32 mL/min Normal HCT 41.9 % 37.0-51.0 [facility] NORMAL RANGES Age WBC [...] HCT IS 5% LESS SOURCE FOR DATA: [employer] 1800 OPERATION MANUAL( AUTOMATED BLOOD COUNTS AND [...] >32 mL/min Normal MCHC 33.9 g/dL 31.0-36.0 [place] ([facility] NORMAL RANGES [...] HCT IS 5% LESS SOURCE FOR DATA: [employer] 1800 OPERATION MANUAL( AUTOMATED BLOOD COUNTS AND [...] HCT IS 5% LESS SOURCE FOR DATA: [employer] 1800 OPERATION MANUAL( AUTOMATED BLOOD COUNTS AND [...] >32 mL/min Normal RDW-CV 12.6 % 11.5-14.5 [place] ([facility] NORMAL RANGES [...] HCT IS 5% LESS SOURCE FOR DATA: [employer] 1800 OPERATION MANUAL( AUTOMATED BLOOD COUNTS AND [...] >32 mL/min Normal PLT 296 10E3/uL 140-440 [facility] (Count includes the [facility] NORMAL RANGES Age WBC [...] HCT IS 5% LESS SOURCE FOR DATA: [employer] 1800 OPERATION MANUAL( AUTOMATED BLOOD COUNTS AND [...] >32 mL/min Normal Lym% 26.2 % 10.0-58.5 [place] ([facility] NORMAL RANGES [...] HCT IS 5% LESS SOURCE FOR DATA: [employer] 1800 OPERATION MANUAL( AUTOMATED BLOOD COUNTS AND [...] >32 mL/min Normal Neut% 65.1 % 37.0-92.0 [facility] ([facility] NORMAL RANGES Age [...] HCT IS 5% LESS SOURCE FOR DATA: [employer] 1800 OPERATION MANUAL( AUTOMATED BLOOD COUNTS AND [...] >32 mL/min Normal Lym# 1.8 10E3/uL 0.6-4.1 [facility] ([facility] NORMAL RANGES Age WBC RBC HGB [...] HCT IS 5% LESS SOURCE FOR DATA: [employer] 1800 OPERATION MANUAL( AUTOMATED BLOOD COUNTS AND [...] >32 mL/min Normal MXD% 8.7 % 0.1-24.0 [facility] NORMAL RANGES Age WBC [...] >32 mL/min Normal Neut# 4.5 % 2.0-7.8 [facility] ([facility] NORMAL RANGES Age WBC [...] HCT IS 5% LESS SOURCE FOR DATA: [employer] DYN 1800 OPERATION MANUAL( AUTOMATED BLOOD COUNTS [...] >32 mL/min Normal MPV 11.4 fL 9.0-13.0 [facility] ([facility] NORMAL RANGES [...] HCT IS 5% LESS SOURCE FOR DATA: [employer] 1800 OPERATION MANUAL( AUTOMATED BLOOD COUNTS AND [...] >32 mL/min Normal MXD# 0.6 10E3/uL 0.0-1.8 [facility] (Count includes the [facility] NORMAL RANGES Age WBC [...] HCT IS 5% LESS SOURCE FOR DATA: [employer] 1800 OPERATION MANUAL( AUTOMATED BLOOD COUNTS AND [...] >32 mL/min Normal ID Date Data Source [id number] 01/07/2021 01:57:00 PM EDT [facility] ([facility] Name Value Range Interpretation Code Description Data Liz rce(s) Supporting Document(s) BUN 15 mg/dL 8- [facility] ([facility] NORMAL RANGES Age [...] HCT IS 5% LESS SOURCE FOR DATA: [employer] 1800 OPERATION MANUAL( AUTOMATED BLOOD COUNTS AND [...] HCT IS 5% LESS SOURCE FOR DATA: [employer] 1800 OPERATION MANUAL( AUTOMATED BLOOD COUNTS AND [...] HCT IS 5% LESS SOURCE FOR DATA: [employer] 1800 OPERATION MANUAL( AUTOMATED BLOOD COUNTS AND [...] above >32 mL/min Normal BUN/Creatinine Ratio 19.7 [facility] ([facility] NORMAL RANGES Age [...] HCT IS 5% LESS SOURCE FOR DATA: [employer] 1800 OPERATION MANUAL( AUTOMATED BLOOD COUNTS AND [...] >32 mL/min Normal Na 136 mmol/L 136-145 [facility] ([facility] NORMAL RANGES Age WBC RBC HGB [...] HCT IS 5% LESS SOURCE FOR DATA: [employer] 1800 OPERATION MANUAL( AUTOMATED BLOOD COUNTS AND [...] >32 mL/min Normal CL 101.7 mmol/L 98.0-107.0 [facility] ([facility] NORMAL RANGES Age WBC [...] HCT IS 5% LESS SOURCE FOR DATA: [employer] 1800 OPERATION MANUAL( AUTOMATED BLOOD COUNTS AND [...] >32 mL/min Normal K 4.2 mmol/L 3.5-5.1 [place] ([facility] NORMAL RANGES Age [...] HCT IS 5% LESS SOURCE FOR DATA: [employer] 1800 OPERATION MANUAL( AUTOMATED BLOOD COUNTS AND [...] >32 mL/min Normal Co2 22.2 mmol/L 22.0-29.0 [facility] (Count includes the [facility] NORMAL RANGES Age WBC [...] HCT IS 5% LESS SOURCE FOR DATA: [employer] 1800 OPERATION MANUAL( AUTOMATED BLOOD COUNTS AND [...] >32 mL/min Normal Alb 4.3 g/dL 3.5-5.2 [facility] NORMAL RANGES Age WBC [...] HCT IS 5% LESS SOURCE FOR DATA: [employer] 1800 OPERATION MANUAL( AUTOMATED BLOOD COUNTS AND [...] >32 mL/min Normal CA 9.1 mg/dL 8.6-10.2 [place] ([facility] NORMAL RANGES [...] HCT IS 5% LESS SOURCE FOR DATA: [employer] 1800 OPERATION MANUAL( AUTOMATED BLOOD COUNTS AND [...] HCT IS 5% LESS SOURCE FOR DATA: [employer] 1800 OPERATION MANUAL( AUTOMATED BLOOD COUNTS AND [...] HCT IS 5% LESS SOURCE FOR DATA: [employer] 1800 OPERATION MANUAL( AUTOMATED BLOOD COUNTS AND [...] >32 mL/min Normal Alp 106.7 U/L 40-129 [facility] ([facility] NORMAL RANGES Age WBC [...] HCT IS 5% LESS SOURCE FOR DATA: [employer] DYN 1800 OPERATION MANUAL( AUTOMATED BLOOD COUNTS [...] >32 mL/min Normal Globulin 2.0 CALC JONATHAN [facility] NORMAL RANGES Age WBC [...] HCT IS 5% LESS SOURCE FOR DATA: Deme[employer] 1800 OPERATION MANUAL( AUTOMATED BLOOD COUNTS AND [...] mL/min Normal Ast (Sgot) 21 U/L 0-40 [facility] ([facility] NORMAL RANGES Age [...] mL/min Normal Alt (SGPT) 28 U/L 0-41 [facility] ([facility] NORMAL RANGES Age [...] HCT IS 5% LESS SOURCE FOR DATA: Demeure 1800 OPERATION MANUAL( AUTOMATED BLOOD COUNTS AND [...] >32 mL/min Normal Anion Gap 17 mmol/L [facility] NORMAL RANGES Age WBC [...] HCT IS 5% LESS SOURCE FOR DATA: Demeure 1800 OPERATION MANUAL( AUTOMATED BLOOD COUNTS AND [...] >32 mL/min Normal Tbili 0.30 mg/dL 0.0-1.2 [facility] ([facility] NORMAL RANGES Age WBC [...] HCT IS 5% LESS SOURCE FOR DATA: Demeure 1800 OPERATION MANUAL( AUTOMATED BLOOD COUNTS AND [...] HCT IS 5% LESS SOURCE FOR DATA: Demeure 1800 OPERATION MANUAL( AUTOMATED BLOOD COUNTS AND [...] and above >32 mL/min Normal eGFR Non-Afr. [place] 110 # [facility] ([facility] [...] HCT IS 5% LESS SOURCE FOR DATA: Demeure 1800 OPERATION MANUAL( AUTOMATED BLOOD COUNTS AND [...] HCT IS 5% LESS SOURCE FOR DATA: Demeure 1800 OPERATION MANUAL( AUTOMATED BLOOD COUNTS AND [...] >32 mL/min Normal ID Date Data Source [id number] 01/03/2021 04:01:00 PM EDT [facility] Name Value Range Interpretation Code Description Data Liz rce(s) Supporting Document(s) SARS coronavirus 2 RNA [Presence] in Res piratory specimen by ARIK with probe detection Not detected [facility] This lab was ordered by [facility] and re ported by [facility]. ID Date Data Source [id number] 01/03/2021 09:01:00 AM EDT [facility] Name Value Range Interpretation Code Description Data Liz rce(s) Supporting Document(s) SARS-COV-2 RNA RESP QL ARIK+PROBE Not detected [facility] This lab was ordered by [facility] Employee Cov id and reported by [facility]. ID Date Data Source [id number] 01/04/2021 01:18:00 PM EDT [facility] Name Value Range Interpretation Code Description Data Liz rce(s) Supporting Document(s) 62428-4 NOT DETECTED [facility] A Not Detected [...] decisions.Test Method: Nucleic Acid Amplification Test includingreverse salesperson meats polymerase chain reaction (RT-PCR)and transcr iption mediated [...] health care providers andpatients using the following websites:https://www.BigEvidence.com/home/Covid-19/HCP/NAAT/fact-xepiz2uxel s://www.BigEvidence.CFBank/home/Covid-19/Patients/NAAT/fact-jjhqr7Kzj to the current public health emergency, [facility] is accepting samples from appropriateclinical sources collected using wide variety ofswabs and transport media for COVID-19. Not detectedtest results derived from specimens received in non-commercially manufactured viral collection kits or thosenot yet authorized by FDA for COVID-19 testing should becautiously evaluated and take extra precautions such asadditional clinical monitoring, including collectionof an additional specimen.Additional information about COVID-19 can be foundat the Everyday.me website:www.[email or web address]. ID Date Data Source [id number] 12/31/2020 07:06:00 PM EDT [facility] Name Value Range Interpretation Code Description Data Liz rce(s) Supporting Document(s) SARS coronavirus 2 RNA [Presence] in Res piratory specimen by ARIK with probe detection Not detected [facility] This lab [facility] and re ported by [employer]. ID Date Data Source [id number] 01/01/2021 11:00:00 AM EDT [facility] Name Value Range Interpretation Code Description Data Liz rce(s) Supporting Document(s) 52544-6 NOT DETECTED [facility] A Not Detected [...] decisions.Test Method: Nucleic Acid Amplification Test includingreverse salesperson meats polymerase chain reaction (RT-PCR)and transcr iption mediated [...] health care providers andpatients using the following websites:https://www.BigEvidence.com/home/Covid-19/HCP/NAAT/fact-xhjhi0vruy s://www.BigEvidence.com/home/Covid-19/Patients/NAAT/fact-alrbr6Kwl to the current public health emergency, [facility] is accepting samples from appropriateclinical sources collected using wide variety ofswabs and transport media for COVID-19. Not detectedtest results derived from specimens received in non-commercially manufactured viral collection kits or thosenot yet authorized by FDA for COVID-19 testing should becautiously evaluated and take extra precautions such asadditional clinical monitoring, including collectionof an additional specimen.Additional information about COVID-19 can be foundat the Everyday.me website:www.[email or web address].[email or web address]. ID Date Data Source [id number] 12/31/2020 12:06:00 PM EDT [facility] Name Value Range Interpretation Code Description Data Liz rce(s) Supporting Document(s) SARS-COV-2 RNA RESP QL ARIK+PROBE Not detected [facility] This lab was ordered by [facility] Employee Cov id and reported by [employer]. ID Date Data Source [id number] 12/24/2020 07:10:00 PM EDT [facility] Name Value Range Interpretation Code Description Data Liz rce(s) Supporting Document(s) SARS coronavirus 2 RNA [Presence] in Res piratory specimen by ARIK with probe detection Not detected [facility] This lab was [facility] and re ported by [facility]. ID Date Data Source [id number] 12/24/2020 12:10:00 PM EDT [facility] Name Value Range Interpretation Code Description Data Liz rce(s) Supporting Document(s) SARS-COV-2 RNA RESP QL ARIK+PROBE Not detected [facility] This lab was ordered by [facility] Employee Cov id and reported by [facility]. ID Date Data Source [id number] 12/25/2020 10:04:00 AM EDT [facility] Name Value Range Interpretation Code Description Data Liz rce(s) Supporting Document(s) 11053-5 NOT DETECTED [facility] A Not Detected result means that SARS-Co [...] decisions.Test Method: Nucleic Acid Amplification Test includingreverse salesperson meats polymerase chain reaction (RT-PCR)and transcr iption mediated [...] health care providers andpatients using the following websites:https://www.BigEvidence.CFBank/home/Covid-19/HCP/NAAT/fact-hpwek2fqdp s://www.BigEvidence.CFBank/home/Covid-19/Patients/NAAT/fact-csuvg5Yem to the current public health emergency, [facility] is accepting samples from appropriateclinical sources collected using wide variety ofswabs and transport media for COVID-19. Not detectedtest results derived from specimens received in non-commercially manufactured viral collection kits or thosenot yet authorized by FDA for COVID-19 testing should becautiously evaluated and take extra precautions such asadditional clinical monitoring, including collectionof an additional specimen.Additional information about COVID-19 can be foundat the Everyday.me website:www.[email or web address]. ID Date Data Source [id number] 11/15/2020 02:41:00 PM EDT [facility] ([facility] Name Value Range Interpretation Code Description Data Liz rce(s) Supporting Document(s) Lipoprotein lipase [Enzymatic activity/volume] in Serum or P lasma 108 U/L 73-393 Normal (applies to non-numeric results) [facility] ([facility] Natriuretic peptide.B prohormone N-Terminal [Mass/volu me] in Serum or Plasma 20 pg/mL Normal (applies to non-numeric results) [facility] ([facility] Thyroxine (T4) free [Mass/volume] in Serum or Plasma 0.91 ng/dL 0.76-1.46 Normal (applies to non-numeric results) [facility] ([facility] Thyrotropin [Units/volume] in Serum or Plasma 1.360 uIU/ML 0. 358-3.740 Normal (applies to non-numeric results) [facility] ([facility] ID Date Data Source [id number] 11/15/2020 02:41:00 PM EDT [facility] ([facility] Name Value Range Interpretation Code Description Data Liz rce(s) Supporting Document(s) Glucose, Fasting 91 mg/dL 70-100 Normal (applies to non-numeric results) [facility] ([facility] Blood Urea Nitrogen 16 mg/dL 7-18 Normal (applies to non-nume nell results) [facility] ([facility] Creatinine For GFR 0.69 mg/dL 0.70-1.30 Below low normal [facility] ([facility] Sodium Level 138 meq/L 136-145 Normal (applies to non-numeric res ults) [facility] ([facility] Glomerular Filtration Rate Laboratory test result Normal (applies to non- numeric results) [facility] ([facility] ) <content>Units are mL/min/1.73 m2</content>
<content></content>
<content>Chronic Kidney Disease Staging per NKF:</content>
<content></content>
<content>Stage I & II GFR >=60 Normal to Mildly Decreased</content>
<content>Stage III GFR 30- 59 Moderately Decreased</content>
<content>Stage IV GFR 15-29 Severely Decreased</content>
<content>Stage V GFR <15 Very Little GFR Left</content>
<content>ESRD GFR <15 on TRAVELING FREIGHT AGENT</content>
<content></content> Potassium Serum 4.4 meq/L 3.5-5.1 Normal (applies to non-numeric results) [facility] ([facility] Carbon Dioxide Level 27 meq/L 21-32 Normal (applies to non-num michell results) [facility] ([facility] Chloride Level 107 meq/L 98-107 Normal (applies to non-numeric r esults) [facility] ([facility] Anion Gap 4 meq/L 8-16 Below low normal [facility] Calcium Level 9.0 mg/dL 8.5-10.1 Normal (applies to non-numeric re sults) [place] ([facility] ID Date Data Source [id number] 11/15/2020 02:41:00 PM EDT [facility] ([facility] Name Value Range Interpretation Code Description Data Liz rce(s) Supporting Document(s) Ast/Sgot 20 U/L 7-37 Normal (applies to non-numeric resul ts) [facility] ([facility] Alt/SGPT 41 U/L 12-78 Normal (applies to non-numeric resul ts) [facility] ([facility] Bilirubin,Total 0.3 mg/dL 0.2-1.0 Normal (applies to non-numeric results) [place] ([facility] Alkaline Phosphatase 102 U/L 45-117 Normal (applies to non-num michell results) [facility] ([facility] Total Protein 6.5 GM/DL 6.4-8.2 Normal (applies to non-numeric re sults) [place] ([facility] Bilirubin,Direct 0.1 mg/dL 0.0-0.2 Normal (applies to non-numeric results) [facility] ([facility] Albumin 3.5 GM/DL 3.2-5.2 Normal (applies to non-numeric resul ts) [facility] ([facility] Albumin/Globulin Ratio 1.2 Normal (applies to non-n umeric results) [facility] ([facility] ID Date Data Source [id number] 11/15/2020 02:41:00 PM EDT [facility] ([facility] Name Value Range Interpretation Code Description Data Liz e(s) Supporting Document(s) CPK Creatine Phosphokinase 117 U/L 39-308 Mariluz l (applies to non-numeric results) [facility] ([facility] ) CK-MB Value Mass Laboratory test result Normal ( applies to non-numeric results) [facility] ([facility] ) MB/CK Relative Index 0.85 Normal (applies to non-num michell results) [facility] ([facility] <content>DIAGNOSIS CRITERIA</content>
<content>MMB ng/ml Relative Index (RI)</content>
<content>NON-AMI < or = 5 N/A</content>
<content>VILLATORO ZONE > 5 < or = 4</content>
<content>AMI > 5 > 4</content>
<content></content> Troponin I Laboratory test result Normal (applies to non-n umeric results) [facility] ([facility] <content>Troponin I Reference Interval f or Siemens [place] LOCI:</content>
<content></content>
<content>99th Percentile= 0.00-0.045 ng/ml</content>
<content></content>
<content>Risk Stratification:</content>
<content><= 0.10 ng/ml Decreased Risk for Adverse Clinical</content>
<content>Events.</content>
<content>0.10-1.50 ng/ml Increased Risk for Adverse Clinical</content>
<content>Events. Evaluation of additional</content>
<content>criterion and/or repeat testing in 2-6</content>
<content>hours is suggested to rule out myocardial</content>
<content>damage.</content>
<content>>= 1.50 ng/ml Indicative of Myocardial Injury.</content>
<content></content> ID Date Data Source [id number] 11/15/2020 02:41:00 PM EDT [facility] ([facility] Name Value Range Interpretation Code Description Data Liz rce(s) Supporting Document(s) Red Blood Count 4.74 10 4.30-6.10 Normal (applies to non-numeric results) [facility] ([facility] White Blood Count 7.5 [...] results) [facility] ([facility] Crenshaw % 5.2 % 2.0-8.0 Normal (applies to non-numeric resul ts) [facility] ([facility] Lymph % 23.9 % 24.0-44.0 Below low normal [facility] ( [facility] Immature Granulocyte % 0.5 % 0-3.0 Normal (applies to non-n umeric results) [facility] ([facility] Eos % 2.3 % 0.0-3.0 Normal (applies to non-numeric resul ts) [facility] ([facility] Baso % 0.8 % 0.0-1.0 Normal (applies to non-numeric resul ts) [facility] ([facility] Neutrophils # 5.1 10 1.5-8.5 Normal (applies to non-numeric re sults) [facility] ([facility] Lymph # 1.8 10 1.5-5.0 Normal (applies to non-numeric resul ts) [facility] Nucleated Red Blood Cell % 0.0 % 0-0 Normal (applies to n on-numeric results) [facility] Crenshaw # 0.4 10 0.0-0.8 Normal (applies to non-numeric resul ts) [facility] Baso # 0.1 10 0.0-0.2 Normal (applies to non-numeric resul ts) [facility] ([facility] Eos # 0.2 10 0.0-0.5 Normal (applies to non-numeric resul ts) [facility] ID Date Data Source [id number] 11/15/2020 10:14:00 AM EDT [place] [facility] Name Value Range Interpretation Code Description Data Liz rce(s) Supporting Document(s) White Blood Count 7.5 4.0-10.0 [facility] ([facility]) Hemoglobin 13.8 [facility] ([facility]) Platelets 289 150-450 [facility] Red Blood Count 4.74 4.30-6.10 [facility] ([facility]io [facility]) Hematocrit 40.7 [facility] ([facility]) ID Date Data Source [id number] 11/15/2020 10:14:00 AM EDT [facility] Name Value Range Interpretation Code Description Data Liz rce(s) Supporting Document(s) Troponin Laboratory test result [facility] ([facility]) Natriuretic peptide.B prohormone N-Terminal [Mass/volu me] in Serum or Plasma 20 [facility] ([employer] [facility]) Thyroid Stimulating Hormone 1.360 [place] [facility] ([facility]) Lipoprotein lipase [Enzymatic activity/volume] in Serum or Plasma 108 [facility] ([facility]) Free T4 0.91 [facility] ([facility]) ID Date Data Source [id number] 11/15/2020 10:14:00 AM EDT [facility] ([facility]) Name Value Range Interpretation Code Description Data Liz rce(s) Supporting Document(s) CPK-MB Laboratory test result [facility] ([facility]) Creatine kinase [Enzymatic activity/volume] in Serum or Plasma 117 [facility] ([facility]) ID Date Data Source [id number] 11/15/2020 10:14:00 AM EDT [facility] ([facility] Name Value Range Interpretation Code Description Data Liz rce(s) Supporting Document(s) Albumin [Mass/volume] in Serum or Plasma 3.5 [facility] ([facility]) Alanine aminotransferase [Enzymatic activity/volume] in Serum or Pl asma 41 [facility] ([facility]) Carbon dioxide, total [Moles/volume] in Serum or Plasma 27 [facility] ([facility]) Calcium [Mass/volume] in Serum or Plasma 9.0 [facility] ([facility]) Alkaline phosphatase [Enzymatic activity/volume] in Serum or Plasma 1 02 [facility] ([facility]) Chloride [Moles/volume] in Serum or Plasma 107 [facility] ([facility]) Potassium [Moles/volume] in Serum or Plasma 4.4 [facility] ([facility]) Aspartate aminotransferase [Enzymatic activity/volume] in Serum or Plasma 20 [facility] ([facility]) Sodium 138 [facility] ([facility]) Protein [Mass/volume] in Serum or Plasma 6.5 [facility] ([facility]) Creatinine For GFR 0.69 [facility] ([facility]) Glucose 91 70-100 [facility] ([facility]) Urea nitrogen [Mass/volume] in Serum or Plasma 16 [facility] ([facility]) ID Date Data Source [id number] 09/09/2020 01:04:00 AM EDT [facility] ([facility] Name Value Range Interpretation Code Description Data Liz rce(s) Supporting Document(s) White Blood Count 9.2 10 4.0-10.0 Normal (applies to non-numeri c results) [facility] ([facility] Red Blood Count 4.87 10 4.30-6.10 Normal (applies to non-numeric results) [facility] ([facility] Mean Corpuscular Volume 87.3 fl 80.0-96.0 Normal ( applies to non-numeric results) [facility] ([facility] ) Hematocrit 42.5 % 42.0-52.0 Normal (applies to non-numeric resul ts) [facility] ([facility] Hemoglobin 14.0 g/dL 13.5-17.5 Normal (applies to non-numeric resul ts) [facility] ([facility] Mean Corpuscular HGB Conc 32.9 g/dL 32.0-36.5 Normal (applies to non-numeric results) [facility] ([facility] ) Mean Corpuscular Hemoglobin 28.7 pg 27.0-33.0 Norm al (applies to non-numeric results) [place] ([facility] Red Cell Distribution Width 12.7 % 11.5-14.5 Norm al (applies to non-numeric results) [facility] ([facility] ) Platelet Count, Automated 300 10 150-450 Normal (applies to non-numeric results) [facility] ([facility] Neutrophils % 56.6 % 36.0-66.0 Normal (applies to non-numeric re sults) [facility] ([facility] Eos % 2.4 % 0.0-3.0 Normal (applies to non-numeric resul ts) [facility] ([facility] Lymph % 33.2 % 24.0-44.0 Normal (applies to non-numeric resul ts) [facility] ([facility] Crenshaw % 6.5 % 2.0-8.0 Normal (applies to non-numeric resul ts) [facility] ([facility] Baso % 0.8 % 0.0-1.0 Normal (applies to non-numeric resul ts) [facility] ([facility] Immature Granulocyte % 0.5 % 0-3.0 Normal (applies to non-n umeric results) [facility] ([facility] Nucleated Red Blood Cell % 0.0 % 0-0 Normal (applies to n on-numeric results) [facility] ([facility] Lymph # 3.1 10 1.5-5.0 Normal (applies to non-numeric resul ts) [facility] ([facility] Neutrophils # 5.2 10 1.5-8.5 Normal (applies to non-numeric re sults) [facility] ([facility] Eos # 0.2 10 0.0-0.5 Normal (applies to non-numeric resul ts) [facility] ([facility] Baso # 0.1 10 0.0-0.2 Normal (applies to non-numeric resul ts) [facility] ([facility] Crenshaw # 0.6 10 0.0-0.8 Normal (applies to non-numeric resul ts) [facility] ([facility] ID Date Data Source [id number] 09/09/2020 01:04:00 AM EDT [facility] ([facility] Name Value Range Interpretation Code Description Data Liz rce(s) Supporting Document(s) Appearance, Urine RFX Laboratory test result Nor mal (applies to non-numeric results) [facility] ([facility] ) Color, Urine RFX Laboratory test result Normal ( applies to non-numeric results) [facility] ([facility] ) PH,Urine RFX 5.0 units 5.0-9.0 Normal (applies to non-numeric res ults) [facility] ([facility] Specific Cross Anchor Ur Auto RFX 1.024 1.002-1.035 Nor mal (applies to non-numeric results) [facility] ([facility] Protein, Urine Auto RFX Laboratory test result Above high normal [facility] ([facility] Glucose, Urine (Ua) Auto RFX Laboratory test result Normal (applies to non- numeric results) [facility] ([facility] ) Ketone, Urine Auto RFX Laboratory test result No rmal (applies to non-numeric results) [facility] ([facility] ) Urobilinogen, Urine Auto RFX 0.2 mg/dL 0.0-2.0 Nor mal (applies to non-numeric results) [facility] ([facility] ) Bilirubin, Urine Auto RFX Laboratory test result Normal (applies to non- numeric results) [facility] Nitrite, Urine Auto RFX Laboratory test result N ormal (applies to non-numeric results) [facility] ([facility] ) Blood, Urine Blood RFX Laboratory test result No rmal (applies to non-numeric results) [facility] ([facility] ) Leukocyte Esterase Ur Auto RFX Laboratory test result Normal (applies to non- numeric results) [facility] ([facility] ) RBC, Urine Auto RFX 2 /HPF 0-3 Normal (applies to non-nume nlel results) [facility] ([facility] WBC, Urine Auto RFX 2 /HPF 0-3 Normal (applies to non-nume nell results) [facility] ([facility] Bacteria, Urine Auto RFX Laboratory test result Normal (applies to non-numeric results) [facility] ([facility] Squam Epithelial Cell Ur Aurfx 0 /HPF 0-6 N ormal (applies to non-numeric results) [facility] ([facility] ) Hyaline Cast, Urine Auto RFX 0 /LPF 0-1 Normal (appl ies to non-numeric results) MEDENT ([facility] Mucus, Urine RFX Laboratory test result Normal ( applies to non-numeric results) MED[facility] ([facility] ) ID Date Data Source [id number] 09/09/2020 01:03:00 AM EDT MEDENT ([facility] Name Value Range Interpretation Code Description Data Liz rce(s) Supporting Document(s) Lipoprotein lipase [Enzymatic activity/volume] in Serum or P lasma 119 U/L 73-393 Normal (applies to non-numeric results) [facility] ([facility] ID Date Data Source [id number] 09/09/2020 01:03:00 AM EDT JONATHAN ([facility] Name Value Range Interpretation Code Description Data Liz rce(s) Supporting Document(s) Glucose, Fasting 103 mg/dL 70-100 Above high normal M EDENT ([facility] Creatinine For GFR 0.80 mg/dL 0.70-1.30 Normal (applies to non -numeric results) [facility] ([facility] Blood Urea Nitrogen 14 mg/dL 7-18 Normal (applies to non-nume nell results) [facility] ([facility] Glomerular Filtration Rate Laboratory test result Normal (applies to non- numeric results) [facility] ([facility] ) <content>Units are mL/min/1.73 m2</content>
<content></content>
<content>Chronic Kidney Disease Staging per NKF:</content>
<content></content>
<content>Stage I & II GFR >=60 Normal to Mildly Decreased</content>
<content>Stage III GFR 30-59 Moderately Decreased</content>
<content>Stage IV GFR 15-29 Severely Decreased</content>
<content>Stage V GFR <15 Very Little GFR Left</content>
<content>ESRD GFR <15 on TRAVELING FREIGHT AGENT</content>
<content></content> Sodium Level 140 meq/L 136-145 Normal (applies to non-numeric res ults) [place] ([facility] Carbon Dioxide Level 30 meq/L 21-32 Normal (applies to non-num michell results) [place] ([facility] Chloride Level 107 meq/L 98-107 Normal (applies to non-numeric r esults) MED[facility] ([facility] Potassium Serum 4.1 meq/L 3.5-5.1 Normal (applies to non-numeric results) MED[facility] ([facility] Calcium Level 8.7 mg/dL 8.5-10.1 Normal (applies to non-numeric re sults) MED[facility] ([facility] Anion Gap 3 meq/L 8-16 Below low normal MED[facility] ( [facility] ID Date Data Source [id number] 09/09/2020 01:03:00 AM EDT MEDENT ([facility] Name Value Range Interpretation Code Description Data Liz rce(s) Supporting Document(s) Ast/Sgot 21 U/L 7-37 Normal (applies to non-numeric resul ts) MED[facility] ([facility] Alt/SGPT 41 U/L 12-78 Normal (applies to non-numeric resul ts) MED[facility] ([facility] Bilirubin,Total 0.4 mg/dL 0.2-1.0 Normal (applies to non-numeric results) [facility] ([facility] Alkaline Phosphatase 107 U/L 45-117 Normal (applies to non-num michell results) MED[facility] ([facility] Total Protein 6.9 GM/DL 6.4-8.2 Normal (applies to non-numeric re sults) MED[facility] ([facility] Bilirubin,Direct 0.1 mg/dL 0.0-0.2 Normal (applies to non-numeric results) MED[facility] ([facility] Albumin 3.9 GM/DL 3.2-5.2 Normal (applies to non-numeric resul ts) MED[facility] ([facility] Albumin/Globulin Ratio 1.3 Normal (applies to non-n umeric results) [facility] ([facility] ID Date Data Source [id number] 08/06/2020 08:57:00 AM EDT MEDENT ([facility] Name Value Range Interpretation Code Description Data Liz rce(s) Supporting Document(s) Thyrotropin [Units/volume] in Serum or Plasma 2.535 ulU/mL 0.60-4.8 [facility] ([facility] ID Date Data Source [id number] 08/06/2020 08:57:00 AM EDT JONATHAN ([facility] Name Value Range Interpretation Code Description Data Liz rce(s) Supporting Document(s) Trig 147 mg/dL 35-200 JONATHAN ([facility] CHRONIC KIDNEY DISEASE STAGING [...] Serum or Plasma 48 mg/dL 35-55 JONATHAN ([facility] CHRONIC KIDNEY DISEASE STAGING [...] YEARS EXCLUSIVE. Cho/HDL Ratio 3.7 CALC [place] ([facility] CHRONIC KIDNEY DISEASE STAGING [...] 2-19 YEARS EXCLUSIVE. ID Date Data Source [id number] 08/06/2020 08:57:00 AM JEEVAN [place] ([facility], [...] YEARS EXCLUSIVE. BUN/Creatinine Ratio 18.8 Calc MEDENT ([facility] CHRONIC KIDNEY DISEASE STAGING [...] YEARS EXCLUSIVE. Creat 0.7 mg/dL 0.7-1.2 MED[facility] ([facility] CHRONIC KIDNEY DISEASE [...] Na 137 mmol/L 136-145 MED[facility] ([facility] CHRONIC KIDNEY DISEASE STAGING PER [...] YEARS EXCLUSIVE. Co2 24.4 mmol/L 22.0-29.0 MEDENT (Count includes the [facility] CHRONIC KIDNEY DISEASE STAGING [...] YEARS EXCLUSIVE. CL 101.2 mmol/L 98.0-107.0 MEDENT ([facility] CHRONIC KIDNEY DISEASE STAGING [...] EXCLUSIVE. Alt (SGPT) 39 U/L 0-41 MED[facility] ([facility] CHRONIC KIDNEY DISEASE [...] YEARS EXCLUSIVE. Tbili 0.30 mg/dL 0.0-1.2 [facility] ([facility] CHRONIC KIDNEY DISEASE STAGING [...] INDIVIDUALA AGED 2-19 YEARS EXCLUSIVE. eGFR Non-Afr. [place] 116 # MEDENT ([facility] [...] YEARS EXCLUSIVE. eGFR 135 # JONATHAN ( [facility] CHRONIC KIDNEY DISEASE STAGING [...] 2-19 YEARS EXCLUSIVE. ID Date Data Source [id number] 02/02/2020 08:58:00 AM EST [place] ([facility] Name Value Range Interpretation [...] YEARS EXCLUSIVE. Cho/HDL Ratio 4.2 CALC JONATHAN ([facility] CHRONIC KIDNEY DISEASE STAGING [...] YEARS EXCLUSIVE. LDL_C 127 Calc 75-129 MEDENT ([facility] CHRONIC KIDNEY DISEASE [...] 2-19 YEARS EXCLUSIVE. ID Date Data Source [id number] 02/02/2020 08:58:00 AM EST MEDENT ([facility] Name Value Range Interpretation Code Description Data Liz rce(s) Supporting Document(s) Glu 103 mg/dL 70-110 MEDENT ([facility] CHRONIC KIDNEY DISEASE [...] EXCLUSIVE. BUN 13 mg/dL 8-23 MED[facility] ([facility] CHRONIC KIDNEY DISEASE STAGING [...] YEARS EXCLUSIVE. BUN/Creatinine Ratio 18.4 CALC MEDENT ([facility] CHRONIC KIDNEY DISEASE STAGING [...] YEARS EXCLUSIVE. Na 136 mmol/L 136-145 MEDENT ([facility] CHRONIC KIDNEY DISEASE [...] YEARS EXCLUSIVE. Co2 23.1 mmol/L 22.0-29.0 MED[facility] ([facility] CHRONIC KIDNEY DISEASE STAGING [...] 2-19 YEARS EXCLUSIVE. Globulin 2.0 CALC [facility] CHRONIC KIDNEY DISEASE STAGING [...] INDIVIDUALA AGED 2-19 YEARS EXCLUSIVE. eGFR Non-Afr. [place] 117 # MEDENT ([facility] [...] YEARS EXCLUSIVE. eGFR 136 # MEDENT ( [facility] CHRONIC [...] has never smoked MEDENT ([facility]) Smoking 11/06/2020 12:00:00 AM EDT Patient has never smoked co mpleted Patient has never smoked MEDENT ([facility], ) Vital Signs ID Date Data Source [id number] Name Value Range Interpretation Code Description Data Source(s) Heart rate 77 /min 77 /min MED[facility] ([facility]) Systolic blood pressure--sitting 113 mm[Hg] 113 mm[Hg] MED[facility] ([facility]) Omron XL cuff, Ra Diastolic blood pressure--sitting 83 mm[Hg] 83 mm[Hg] MED[facility] ([facility]) Omron XL cuff, Ra Body height 70 [in_i] 70 [in_i] [facility] ([facility] 5'10" Body mass index (BMI) [Ratio] 49.9 kg/m2 49.9 k g/m2 MED[facility] ([facility]) Body weight 348.00 [lb_av] 348.00 [lb_av] MEDEN T ([facility]) Systolic blood pressure 134 mm[Hg] 134 mm[Hg] M EDENT ([facility] Respiratory rate 14 /min 14 /min MEDENT ( [facility] Diastolic blood pressure 84 mm[Hg] 84 mm[Hg] MEDENT ([facility] Body height 70 [in_i] 70 [in_i] MEDENT ([facility] 5'10" Body weight 348.00 [lb_av] 348.00 [lb_av] MEDEN T ([facility] Body temperature 98.4 [degF] 98.4 [degF] MEDENT ([facility] Heart rate 86 /min 86 /min MEDENT ([facility] [place] body weight 166 [lb_av] 166 [lb_av] MEDEN T ([facility] Body mass index (BMI) [Ratio] 49.9 kg/m2 49.9 k g/m2 MEDENT ([facility] Oxygen saturation in Arterial blood by Pulse oximetry 97 % 97 % MEDENT ([facility] Diastolic blood pressure 88 mm[Hg] 88 mm[Hg] MEDENT ([facility], ) Systolic blood pressure 134 mm[Hg] 134 mm[Hg] M [place] ([facility], ) Oxygen saturation in Arterial blood by Pulse oximetry 99 % 99 % [place] ([facility], ) Heart rate 75 /min 75 /min MED[facility] ([facility], ) Body height 70 [in_i] 70 [in_i] MEDENT ([facility]) 5'10" Body mass index (BMI) [Ratio] 50.1 kg/m2 50.1 k g/m2 [facility] ([facility]) [place] body weight 166 [lb_av] 166 [lb_av] MEDEN T ([facility]) Body weight 158.306 kg 158.306 kg [facility] ([facility]) Body surface area Derived from formula 2.64 m2 2.64 m2 [place] ([facility]) Body weight 349.00 [lb_av] 349.00 [lb_av] MEDEN T ([facility]) Body weight 347.8 [lb_av] 347.8 [lb_av] eCW1 ([facility]) Body weight 157.76 kg 157.76 kg W1 ([facility]) Body height 70 [in_i] 70 [in_i] eCW1 ([facility]) Body mass index (BMI) [Ratio] 49.90 kg/m2 49.90 kg/m2 eCW1 ([facility]) Systolic blood pressure 134 mm[Hg] 134 mm[Hg] e CW1 ([facility]) Diastolic blood pressure 82 mm[Hg] 82 mm[Hg] eCW1 ([facility]) Heart rate 78 /min 78 /min [facility] ([facility]) Systolic blood pressure 132 mm[Hg] 132 mm[Hg] M EDENT ([facility]) Diastolic blood pressure 84 mm[Hg] 84 mm[Hg] [place] ([facility]) [place] body weight 166 [lb_av] 166 [lb_av] MEDEN T ([facility]) Body weight 158.306 kg 158.306 kg [facility] ([facility]) Oxygen saturation in Arterial blood by Pulse oximetry 98 % 98 % [facility] ([facility]) Body height 70 [in_i] 70 [in_i] [facility] ([facility]) 5'10" Body weight 349.00 [lb_av] 349.00 [lb_av] MEDEN T ([facility]) Body mass index (BMI) [Ratio] 50.1 kg/m2 50.1 k g/m2 MEDENT ([facility]) Body surface area Derived from formula 2.64 m2 2.64 m2 [facility] ([facility]) Body weight 242.00 [lb_av] 242.00 [lb_av] MEDEN T ([facility] Diastolic blood pressure 94 mm[Hg] 94 mm[Hg] MEDENT ([facility] Systolic blood pressure 154 mm[Hg] 154 mm[Hg] M EDENT ([facility] Body temperature 97.1 [degF] 97.1 [degF] MEDENT ([facility] Heart rate 76 /min 76 /min MEDENT ([facility] Respiratory rate 16 /min 16 /min MEDENT ( [facility] Body height 70 [in_i] 70 [in_i] MEDENT ([facility] 5'10" [place] body weight 166 [lb_av] 166 [lb_av] MEDEN T ([facility] Body mass index (BMI) [Ratio] 34.7 kg/m2 34.7 k g/m2 MEDENT ([facility] Oxygen saturation in Arterial blood by Pulse oximetry 98 % 98 % MEDENT ([facility] Systolic blood pressure 142 mm[Hg] 142 mm[Hg] M EDENT ([facility] Body temperature 97.4 [degF] 97.4 [degF] MEDENT ([facility] Heart rate 74 /min 74 /min MEDENT ([facility] Respiratory rate 18 /min 18 /min MEDENT ( [facility] Body weight 354.00 [lb_av] 354.00 [lb_av] MEDEN T ([facility] [place] body weight 166 [lb_av] 166 [lb_av] MEDEN T ([facility] Oxygen saturation in Arterial blood by Pulse oximetry 99 % 99 % MEDENT ([facility] Diastolic blood pressure 82 mm[Hg] 82 mm[Hg] MEDENT ([facility] Body mass index (BMI) [Ratio] 50.8 kg/m2 50.8 k g/m2 MEDENT ([facility] Body height 70 [in_i] 70 [in_i] MEDENT ([facility] 5'10" Systolic blood pressure 134 mm[Hg] 134 mm[Hg] M EDENT ([facility] Diastolic blood pressure 82 mm[Hg] 82 mm[Hg] MEDENT ([facility] Body temperature 98.2 [degF] 98.2 [degF] MEDENT ([facility] Respiratory rate 16 /min 16 /min MEDENT ( [facility] Body weight 345.00 [lb_av] 345.00 [lb_av] MEDEN T ([facility] [place] body weight 166 [lb_av] 166 [lb_av] MEDEN T ([facility] Oxygen saturation in Arterial blood by Pulse oximetry 97 % 97 % MEDENT ([facility] Heart rate 70 /min 70 /min MED[facility] ([facility] Body mass index (BMI) [Ratio] 49.5 kg/m2 49.5 k g/m2 MEDENT ([facility] Body height 70 [in_i] 70 [in_i] MEDENT ([facility] 5'10" Systolic blood pressure 146 mm[Hg] 146 mm[Hg] M EDENT ([facility]) Diastolic blood pressure 89 mm[Hg] 89 mm[Hg] MEDENT ([facility], [facility]) Body mass index (BMI) [Ratio] 48.8 kg/m2 48.8 k g/m2 MEDENT ([facility], [facility]) Heart rate 89 /min 89 /min MEDENT ([facility]) Respiratory rate 18 /min 18 /min MEDENT ( [facility], [facility]) Oxygen saturation in Arterial blood by Pulse oximetry 97 % 97 % MEDENT ([facility]) Body temperature 100.3 [degF] 100.3 [degF] MEDE NT ([facility], [facility]) Body weight 340.00 [lb_av] 340.00 [lb_av] MEDEN T ([facility], [facility]) Body height 70 [in_i] 70 [in_i] MEDENT ([facility], [facility]) 5'10"
--- NOTE | 2021-02-07 08:07 | ECGEPIP ---
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
== END 2021-02-07 05:08 | disposition left against medical advice (07) ==
LOC: M ED 01:36
DX: Z53.21 Procedure and treatment not carried out due to patient leaving prior to being seen by health care provider (principal)

== ENCOUNTER → 2021-02-14 | Outpatient (CLI) | payer BC, OTHER ==
[~2021-02-14] MED LIST changes: +ISOVUE-370 76% 100ML VIAL ONE; +LOSA100T45 PO; -LOSA100T50 PO; +LOSA25TA13 PO; -LOSA25TA14 PO
== END ==
LOC: M PLAIMG 11:54
PROVIDERS: ATTEND Internal Medicine
DX: R10.11 Right upper quadrant pain (principal); K76.0 Fatty (change of) liver, not elsewhere classified; N28.1 Cyst of kidney, acquired; N20.0 Calculus of kidney; K42.9 Umbilical hernia without obstruction or gangrene; K57.90 Diverticulosis of intestine, part unspecified, without perforation or abscess without bleeding
CPT/HCPCS: 74178; Q9967

== ENCOUNTER → 2021-05-19 | Outpatient (REF) | payer BC, OTHER ==
[~2021-05-19] MED LIST changes: -ISOVUE-370 76% 100ML VIAL ONE
== END ==
LOC: M LAB REF 12:15
PROVIDERS: ATTEND Internal Medicine
DX: I10 Essential (primary) hypertension (principal)

== ENCOUNTER → 2021-08-25 | Outpatient (CLI) | payer BC, OTHER ==
[~2021-08-25] MED LIST changes: +EXCETAB32 PO; -EXCETAB33 PO
== END ==
LOC: M EKG 10:18
PROVIDERS: ATTEND Internal Medicine
DX: R00.2 Palpitations (principal)

== ENCOUNTER 2021-09-18 18:51 | Emergency (ER) | payer BC, OTHER ==
[~2021-09-18] VITALS: Ht 177.8 cm; Wt 152.7 kg
[2021-09-18 20:57] LABS: BLOOD UREA NITROGEN 15 MG/DL (7-18); CALCIUM LEVEL 8.8 MG/DL (8.5-10.1); CARBON DIOXIDE LEVEL 27 MEQ/L (21-32); CHLORIDE LEVEL 107 MEQ/L (98-107); CREATININE FOR GFR 0.88 MG/DL (0.70-1.30); GLOMERULAR FILTRATION RATE > 60.0 (>60); GLUCOSE, FASTING 98 MG/DL (70-100); POTASSIUM SERUM 4.1 MEQ/L (3.5-5.1); SODIUM LEVEL 140 MEQ/L (136-145)
[2021-09-18 21:02] LABS: CK-MB VALUE MASS 1.2 NG/ML (<3.6); MB/CK RELATIVE INDEX 1.13 (< OR =4)
[2021-09-18 21:03] LABS: BASO # 0.1 10^3/uL (0.0-0.2); BASO % 0.8 % (0.0-1.0); EOS # 0.2 10^3/uL (0.0-0.5); EOS % 2.4 % (0.0-3.0); HEMATOCRIT 40.9 % (42.0-52.0); HEMOGLOBIN 13.8 g/dl (13.5-17.5); LYMPH # 2.3 10^3/uL (1.5-5.0); LYMPH % 25.1 % (24.0-44.0); MEAN CORPUSCULAR HEMOGLOBIN 29.2 pg (27.0-33.0); MEAN CORPUSCULAR HGB CONC 33.7 g/dl (32.0-36.5); MEAN CORPUSCULAR VOLUME 86.5 fl (80.0-96.0); MONO # 0.6 10^3/uL (0.0-0.8); MONO % 6.4 % (2.0-8.0); NEUTROPHILS # 5.9 10^3/uL (1.5-8.5); NEUTROPHILS % 65.1 % (36.0-66.0); PLATELET COUNT, AUTOMATED 273 10^3/uL (150-450); RED BLOOD COUNT 4.73 10^6/uL (4.30-6.10)
[2021-09-18 22:23] LABS: CK-MB VALUE MASS < 1.0 NG/ML (<3.6); CPK CREATINE PHOSPHOKINASE 92 U/L (39-308); MB/CK RELATIVE INDEX 1.09 (< OR =4)
[2021-09-19] MEDS ORDERED: ISOVUE-370 76% 100ML VIAL As Ordered ONE (00:11)
[2021-09-19 03:43] VITALS: BP 144/88
== END 2021-09-19 03:44 | disposition home or self-care (01) ==
LOC: M ED 18:51
DX: R07.89 Other chest pain (principal); I51.7 Cardiomegaly; I10 Essential (primary) hypertension; G43.909 Migraine, unspecified, not intractable, without status migrainosus; Z82.49 Family history of ischemic heart disease and other diseases of the circulatory system; Z79.82 Long term (current) use of aspirin; Z79.899 Other long term (current) drug therapy; Z88.0 Allergy status to penicillin

== ENCOUNTER → 2021-09-26 | Outpatient (REF) | payer OTHER, BC ==
[2021-09-26 18:21] LABS: BLOOD UREA NITROGEN 12 MG/DL (7-18); CALCIUM LEVEL 8.8 MG/DL (8.5-10.1); CARBON DIOXIDE LEVEL 30 MEQ/L (21-32); CHLORIDE LEVEL 105 MEQ/L (98-107); CREATININE FOR GFR 0.86 MG/DL (0.70-1.30); FREE T4 0.97 NG/DL (0.76-1.46); GLOMERULAR FILTRATION RATE > 60.0 (>60); GLUCOSE, FASTING 161 MG/DL (70-100); MAGNESIUM LEVEL 2.1 MG/DL (1.8-2.4); POTASSIUM SERUM 4.1 MEQ/L (3.5-5.1); SODIUM LEVEL 139 MEQ/L (136-145); THYROID STIMULATING HORMONE 0.934 uIU/ML (0.358-3.740)
== END ==
LOC: M LABWUC 15:39
PROVIDERS: ATTEND Physician Assistant
DX: R00.2 Palpitations (principal)

== ENCOUNTER → 2022-05-18 | Outpatient (REF) | payer OTHER, BC ==
[2022-05-18 17:05] LABS: C REACTIVE PROTEIN QUANTITATIV 1.7 MG/DL (<1.0)
[2022-05-18 17:06] LABS: IMMUNOGLOBULIN A 143.4 MG/DL (40-350)
[2022-05-20 17:10] LABS: ENDOMYSIAL ABY IgA Negative (Negative); TISSUE TRANSGLUTAMINASE IgA 5 U/mL (0-3)
== END ==
LOC: M LAB REF 16:07
PROVIDERS: ATTEND Internal Medicine
DX: R19.7 Diarrhea, unspecified (principal)

== ENCOUNTER → 2022-05-24 | Outpatient (REF) | payer OTHER, BC | LOC: M LAB REF 11:38 | PROVIDERS: ATTEND Internal Medicine | DX: R19.7 Diarrhea, unspecified (principal) ==

== ENCOUNTER → 2022-06-02 | Outpatient (REF) | payer OTHER, BC | LOC: M LAB REF 11:35 | PROVIDERS: ATTEND Internal Medicine | DX: R19.7 Diarrhea, unspecified (principal) ==

== ENCOUNTER → 2022-08-20 | Outpatient (CLI) | payer BC, OTHER ==
[~2022-08-20] MED LIST changes: -LOSA100T45 PO; +LOSA100T46 PO; +PROHANCE 279.3MG/ML 15ML VIAL ONE; +PROHANCE 279.3MG/ML 5ML VIAL ONE
== END ==
LOC: M PLAIMG 08:43
PROVIDERS: ATTEND Internal Medicine Gastroenterology
DX: K86.81 Exocrine pancreatic insufficiency (principal)
CPT/HCPCS: 74183; A9576

== ENCOUNTER → 2022-10-19 | Outpatient (CLI) | payer BC, OTHER ==
[~2022-10-19] MED LIST changes: +CREO3600 PO; -PROHANCE 279.3MG/ML 15ML VIAL ONE; -PROHANCE 279.3MG/ML 5ML VIAL ONE
== END ==
LOC: M RAD 07:18
PROVIDERS: ATTEND Internal Medicine Gastroenterology
DX: R16.1 Splenomegaly, not elsewhere classified (principal)

== ENCOUNTER → 2023-04-26 | Outpatient (CLI) | payer BC, OTHER | LOC: M LAB 11:23 | PROVIDERS: ATTEND Physician Assistant Medical | DX: K90.0 Celiac disease (principal); K86.81 Exocrine pancreatic insufficiency ==

== ENCOUNTER 2023-12-06 00:58 | Emergency (ER) | payer BC, OTHER ==
[~2023-12-06] VITALS: Ht 177.8 cm; Wt 161.0 kg
[2023-12-06 01:01] VITALS: BP 186/86; TEMP 97.1; O2SAT 99
[2023-12-06] MEDS: FLUORESCEIN OPHTH 1MG STRIP OD ONE (03:00)
[2023-12-06] MEDS: PROPARACAINE 0.5% OPHTH SOL 15ML OD ONE (03:00)
[2023-12-06] MEDS: ERYTHROMYCIN OPHTH OINT OS STA (03:49)
[2023-12-06] MEDS ORDERED: ERYT5OIN25 OS (03:52)
== END 2023-12-06 04:04 | disposition home or self-care (01) ==
LOC: M ED 00:58
DX: S05.02XA Injury of conjunctiva and corneal abrasion without foreign body, left eye, initial encounter (principal); Y92.9 Unspecified place or not applicable; Y93.9 Activity, unspecified; Y99.9 Unspecified external cause status; I10 Essential (primary) hypertension; Z88.0 Allergy status to penicillin; Z79.2 Long term (current) use of antibiotics; Z79.899 Other long term (current) drug therapy

== ENCOUNTER → 2024-02-21 | Outpatient (REF) | payer BC, OTHER ==
[~2024-02-21] MED LIST changes: +ERYT5OIN25 OS
== END ==
LOC: M LAB REF 16:25
PROVIDERS: ATTEND Internal Medicine
DX: K90.9 Intestinal malabsorption, unspecified (principal)

== ENCOUNTER 2024-03-20 19:51 | Emergency (ER) | payer BC, OTHER ==
[~2024-03-20] VITALS: Ht 177.8 cm; Wt 160.0 kg
[2024-03-20 19:54] VITALS: BP 183/86; TEMP 98.1; O2SAT 98
== END 2024-03-20 20:34 | disposition home or self-care (01) ==
LOC: M ED 19:51
DX: M25.562 Pain in left knee (principal); I10 Essential (primary) hypertension; M54.50 Low back pain, unspecified; G47.30 Sleep apnea, unspecified; Z87.442 Personal history of urinary calculi; Z79.899 Other long term (current) drug therapy